=== PATIENT | male | born 1975 | race Caucasian/White ===

== ENCOUNTER → 2019-12-25 14:22 | Outpatient (BNVA) | payer OTHER, SELFPAY | PROVIDERS: PCP Nurse Practitioner Family; Referring Provider Nurse Practitioner Family; Visit Provider Nurse Practitioner | DX: Z76.89 Persons encountering health services in other specified circumstances (principal) ==

== ENCOUNTER → 2020-01-02 08:05 | Outpatient (BNVA) | payer OTHER, SELFPAY | PROVIDERS: PCP Nurse Practitioner Family; Referring Provider Nurse Practitioner Family; Visit Provider Nurse Practitioner Family | DX: G47.9 Sleep disorder, unspecified (principal); Z79.899 Other long term (current) drug therapy ==

== ENCOUNTER → 2020-02-18 19:25 | Outpatient (REF) | payer OTHER, SELFPAY | LOC: HO.SL 19:25 | PROVIDERS: PCP Nurse Practitioner Family; Visit Provider Nurse Practitioner Family | DX: G47.33 Obstructive sleep apnea (adult) (pediatric) (principal) | CPT/HCPCS: 95810 ==

== ENCOUNTER 2020-02-26 07:21 | Outpatient (REF) | payer OTHER, SELFPAY ==
[2020-02-26 12:29] LABS: Alanine Aminotransferase 38 U/L (0-40); Alkaline Phosphatase 93 U/L (39-117); Anion Gap 11 (12-20); Aspartate Amino Transferase 19 U/L (5-37); Bilirubin Total 0.4 mg/dL (0.0-1.0); Blood Urea Nitrogen 17 mg/dL (9-16); Carbon Dioxide 25 mmol/L (22-29); Chloride 107 mmol/L (96-108); Cholesterol 191 mg/dL; Estimated Glomerular Filt Rate > 60; Glucose Fasting 103 mg/dL (60-99); HDL Cholesterol 36 mg/dL; LDL Cholesterol Calculated 128 mg/dl; Potassium 4.4 mmol/l (3.3-5.1); Sodium 139 mmol/L (135-145); Total Protein 6.8 g/dL (6.5-8.0); Triglycerides 136 mg/dL
== END 2020-02-26 07:22 | disposition home or self-care (01) ==
LOC: HO.WFDLDS 07:21
PROVIDERS: PCP Nurse Practitioner Family; Visit Provider Nurse Practitioner Family
DX: Z00.00 Encounter for general adult medical examination without abnormal findings (principal)
CPT/HCPCS: 80053; 80061; 84443

== ENCOUNTER → 2020-03-12 08:20 | Outpatient (BNVA) | payer OTHER, SELFPAY | PROVIDERS: PCP Nurse Practitioner Family; Visit Provider Nurse Practitioner Family | DX: Z13.89 Encounter for screening for other disorder (principal) ==

== ENCOUNTER 2020-05-22 20:33 | Inpatient (IN) | payer OTHER, SELFPAY ==
--- NOTE | ~2020-05-22 | US_ITS ---
EXAMINATION: US ABDOMEN COMPLETE CLINICAL INFORMATION: The gallbladder wall thickening. Rule out cholecystitis/gallstones.. COMPARISON: CT scan of May 24, 2020 and May 22, 2020 TECHNIQUE: Real-time imaging of the abdominal viscera. FINDINGS: PANCREAS: Normal. No abnormal pancreatic mass or peripancreatic inflammatory change. ABDOMINAL AORTA: The proximal, mid, and distal segments are normal in caliber. INFERIOR VENA CAVA: Visualized portions are normal. LIVER: There is a coarsened echotexture present consistent with mild degree of hepatocellular disease. There is mild intrahepatic bile duct prominence. No focal hepatic mass is noted. GALLBLADDER: There is echogenic bile present with the gallbladder wall being thickened to 7 mm in diameter. Patient is tender to palpation overlying the gallbladder. No definite pericholecystic fluid collection is seen. COMMON BILE DUCT: Normal in caliber measuring 0.5 cm in diameter. RIGHT KIDNEY: Normal. No hydronephrosis. No renal calculi or focal parenchymal lesions. The kidney measures 10.2 cm in maximum dimension. LEFT KIDNEY: Normal. No hydronephrosis. No renal calculi or focal parenchymal lesions. The kidney measures 10.9 cm in maximum dimension. SPLEEN: Normal. The spleen measures 11 cm in maximum dimension. FREE FLUID: None. US/US abdomen complete IMPRESSION: Echogenic bile with diffuse prominent wall thickening to 7 mm in diameter with tenderness to palpation overlying the gallbladder. Findings are consistent with acute cholecystitis. No pericholecystic fluid collection.
--- NOTE | ~2020-05-22 | CT_ITS ---
EXAMINATION: CT ABDOMEN AND PELVIS WITH CONTRAST CLINICAL INFORMATION: Epigastric and right upper quadrant pain COMPARISON: None TECHNIQUE: Multidetector volumetric images were obtained from the superior aspect of the liver through the pubic symphysis following administration 85 mL of Omnipaque 350 intravenous contrast. Sagittal and coronal reformatted images were obtained on the technologist's workstation. Oral contrast: No This CT examination was performed using dose optimization techniques as appropriate, variously including the following: *Automated exposure control *Adjustment of mA and/or kV according to patient size (this includes techniques or standardized protocols for targeted exams where dose is matched to indication/reason for exam; i.e. extremities or head) *Use of iterative reconstruction technique DLP: 698 mGy-cm FINDINGS: LUNG BASES: The visualized lung bases are unremarkable. Dependent atelectasis/groundglass changes are present LIVER, GALLBLADDER, AND BILIARY TREE: The liver is normal in size, shape, and attenuation. No focal hepatic lesion or biliary ductal dilatation is present. The gallbladder is unremarkable with no evidence of radiopaque gallstones, gallbladder wall thickening, or obvious pericholecystic inflammatory changes. PANCREAS: Unremarkable. SPLEEN: Unremarkable. A tiny splenule is present. ADRENAL GLANDS: Unremarkable. KIDNEYS AND URETERS: The kidneys are normal in size, shape, and attenuation. No hydronephrosis, hydroureter, or calculi seen. No perinephric stranding. BLADDER: Unremarkable. GASTROINTESTINAL TRACT: A small hiatal hernia is present. The stomach is markedly distended and there is a transition to more small caliber duodenum at the level of the duodenal bulb. No inflammatory changes are seen. Diverticular changes are present in the colon without diverticulitis. The small and large bowel are otherwise unremarkable. The appendix is unremarkable. ABDOMINAL WALL: No significant hernia is appreciated. Tiny inguinal hernias are seen containing only fat LYMPH NODES: No retroperitoneal lymphadenopathy. VASCULAR: Unremarkable. PELVIC VISCERA: Unremarkable. OSSEOUS STRUCTURES: Degenerative changes present at L5-S1 with vacuum phenomena and mild grade 1 anterolisthesis. Bilateral pars intraarticularis defects are present at L5. CT/CT abdomen pelvis w con IMPRESSION: A definitive etiology for the patient's right upper quadrant pain has not been found. The stomach is quite distended with fluid with an abrupt transition at the level of the duodenum. The significance of this is uncertain. Gastritis or duodenal ulcer disease could be playing a role but no inflammatory changes are seen.
--- NOTE | ~2020-05-22 | XR_ITS ---
EXAMINATION: XR CHEST CLINICAL INFORMATION: Question of free air COMPARISON: None TECHNIQUE: Frontal view of the chest was obtained. FINDINGS: No significant abnormality is noted involving the heart, lungs, mediastinum, bony thorax or soft tissues. No free intraperitoneal air is seen beneath the hemidiaphragms. XR/XR chest 1V IMPRESSION: Unremarkable examination.
--- NOTE | ~2020-05-22 | CT_ITS ---
EXAMINATION: CT ABDOMEN AND PELVIS WITH CONTRAST CLINICAL INFORMATION: Abdominal pain, nausea and vomiting. Gastric distention. Evaluate small bowel. COMPARISON: Previous CT of the abdomen and pelvis 05/22/2020 TECHNIQUE: Multidetector volumetric images were obtained from the superior aspect of the liver through the pubic symphysis following administration 85 mL of Omnipaque 350 intravenous contrast. Sagittal and coronal reformatted images were obtained on the technologist's workstation. Oral contrast: Yes This CT examination was performed using dose optimization techniques as appropriate, variously including the following: *Automated exposure control *Adjustment of mA and/or kV according to patient size (this includes techniques or standardized protocols for targeted exams where dose is matched to indication/reason for exam; i.e. extremities or head) *Use of iterative reconstruction technique DLP: 522 mGy-cm FINDINGS: LUNG BASES: The visualized lung bases are unremarkable. LIVER, GALLBLADDER, AND BILIARY TREE: The liver is normal in size, shape, and attenuation. No focal hepatic lesion or biliary ductal dilatation is present. Gallbladder does not appear enlarged. The gallbladder wall is indistinct and there is question of a trace of pericholecystic fluid around the gallbladder. This is a new finding from previous exam. No gallstones are seen. There is no intra extrahepatic biliary duct dilatation. PANCREAS: Unremarkable. SPLEEN: Unremarkable. ADRENAL GLANDS: Unremarkable. KIDNEYS AND URETERS: The kidneys are normal in size, shape, and attenuation. No hydronephrosis, hydroureter, or calculi seen. No perinephric stranding. BLADDER: Unremarkable. GASTROINTESTINAL TRACT: There is mild diverticulosis of the colon. The small and large bowel are otherwise unremarkable. The appendix is unremarkable. The stomach no longer appears dilated and fluid-filled. There is mild wall thickening of the proximal stomach. This may be related to underdistention. ABDOMINAL WALL: No significant hernia is appreciated. LYMPH NODES: Normal. VASCULAR: Unremarkable. PELVIC VISCERA: The prostate gland does not appear enlarged. There is trace ascites in the pelvis. OSSEOUS STRUCTURES: There is spondylolisthesis spondylolysis and degenerative disc disease at L5-S1. CT/CT abdomen pelvis w con IMPRESSION: Normal-appearing small bowel. The stomach no longer appears distended. Diverticulosis of the colon. No evidence of diverticulitis. Indistinctness of the gallbladder wall and question small amount of pericholecystic fluid. This is a new finding from previous exam. No gallstones are seen. If there is clinical suspicion of gallbladder disease, abdominal ultrasound and possibly HIDA scan should be considered. Spondylosis, spondylolisthesis and degenerative disc disease at L5-S1.
[2020-05-22 20:41] VITALS: BP 137/87; BP 162/100; PULSE 68; PULSE 78; RESP 16; TEMP 36.6; O2SAT 98; BMI 29.5
[2020-05-22] MEDS: Prochlorperazine Edisylate 10 MG/2 ML VIAL IVPUSH (20:59)
[2020-05-22] MEDS: HYDROmorphone HCl 1 MG/ML SYRINGE IVPUSH ×2 (21:03→22:33)
[2020-05-22] MEDS: 0.9 % Sodium Chloride 1,000 ML 999 ML IVCONT (21:03)
--- NOTE | 2020-05-22 21:06 | ED_ITS ---
HPI - Abdominal Pain General Chief Complaint: Abdominal Pain Stated Complaint: UPPER ABDOMINAL PAIN Time Seen by Provider: 05/22/20 20:41 Source: patient and EMS Mode of arrival: EMS Limitations: no limitations History of Present Illness HPI narrative: Patient comes emergency room complaining severe epigastric pain. Patient states started 2 hours prior to arrival, states the pain went from 0-10 in couple of minutes. Patient is known to have GERD/Seaman's esophagus. Patient states that he has never had this pain before. Ambulance was called, patient was feeling position. EMS gave the patient 100 mg of fentanyl and Zofran with minimal relief. Patient states that he feels nauseous but has not vomited. Patient denies diarrhea. Patient denies any recent intake of NSAIDs, takes omeprazole twice a day MD elicited complaint: abdominal pain Related Data Previous Rx's Medication Instructions Recorded omeprazole 40 mg capsule,delayed 40 mg PO DAILY 30 Days #30 cap 12/25/19 release ezetimibe 10 mg tablet 10 mg PO DAILY #90 tab 04/29/20 Allergies Allergy/AdvReac Type Severity Reaction Status Date / Time shellfish derived Allergy Unknown Verified 05/22/20 21:09 Review of Systems Review of Systems Constitutional : No Weight loss, No Fever, No Chills, No Night Sweats, No Fatigue, No Malaise ENT/Mouth : No Hearing loss, No Ear Pain, No Nasal Congestion, No Sinus Pain, No Hoarseness, No sore throat, No Rhinorrhea, No Swallowing Difficulty Eyes: No Eye Pain, No Swelling, No Redness, No Foreign Body, No Discharge, No Vision Changes Cardiovascular : No Chest Pain, No SOB, No Dyspnea on Exertion, No Orthopnea, No Edema, No Palpitations Respiratory : No Cough, No Sputum, No Wheezing, No Smoke Exposure, No Dyspnea Gastrointestinal : Complaining of Nausea/dry heaving, No Vomiting, No Diarrhea, No Constipation, complaining of severe abdominal epigastric pain and right upper quadrant, No Hematochezia, No Melena Genitourinary : no irregular bleeding, No Dysuria, No Urinary Frequency, No Hematuria, No Urinary Incontinence, No Urgency, No Flank Pain, No Urinary Flow Changes, No Hesitancy Musculoskeletal : No joint pain, No Myalgias, No Joint Swelling Skin : No Skin Lesions, No rash Neuro : No Weakness, No Numbness, No Paresthesias, No Loss of Consciousness, No Dizziness, No Headache Psych : No Anxiety/Panic, No Depression, No SI/HI/AH/VH, No Social Issues, Heme/Lymph: No Bruising, No Bleeding,No Lymphadenopathy Endocrine : No Polyuria, No Polydipsia, No Temperature Intolerance Physical Exam Vital Signs: Vital Signs: Last Vital Signs Temp 97.9 F 05/22/20 20:41 Pulse 67 05/23/20 00:35 Resp 16 05/23/20 00:35 BP 136/87 05/23/20 00:35 Pulse Ox 98 05/22/20 20:41 Body Mass Index 29.5 Appearance: Alert. Oriented X3. In moderate distress, in pain, uncomfortable Eyes: Pupils equal, round and reactive to light. ENT: Pharynx normal. Neck: Normal inspection. Neck supple. No lymph nodes noted. No crepitus CVS: Normal heart rate and rhythm. Pulses normal. Normal S1 and S2 Respiratory: No respiratory distress. Breath sounds normal. No Wheezing. No rales Abdomen: Soft , tenderness to palpation over the epigastric area, negative Stack sign, No rigidity. No distention. Skin: Skin warm, mildly clammy, mildly pale Extremities: No lower extremity edema. Neuro: Oriented X 3. No motor deficit. No sensory deficit. Moving all extermities. No slurred speech. Course Course Course Narrative: I discussed the patient a CT scan with Dr. Artis, patient's condition is not surgical at this time. Recommendations are to p.o. challenge the patient, if able to tolerate fluids and solids, patient may be discharged home, and patient will be instructed to follow-up with his rn clinical quality, as he may need an upper endoscopy. 23:55 patient is being p.o. challenged, at this time, patient states that he has very mild discomfort in the abdomen with deep palpation, otherwise patient feels well 00:15 patient did not tolerate p.o. intake, nausea and pain restarted shortly after. I discussed the patient with Dr. Vergara, patient will be admitted to the hospitalist service, and in the morning patient will get a GI consult. I discussed the above mention with the patient and his , both agree with plan. MDM - Abdominal Pain Lab Data Result diagrams: 05/22/20 21:28 05/22/20 21:28 Labs: Lab Results 0305/22/20 05/22/20 Range/Units 21:28 21:28 21:28 WBC 9.7 (4.8-10.8) X10*3/uL RBC 4.86 (4.60-5.80) X10*6/uL Hgb 15.0 (14.0-18.0) g/dl Hct 43.6 (42-52) % MCV 89.7 (80-98) fL MCH 30.9 (27.0-33.0) pg MCHC 34.4 (31.0-36.0) g/dl RDW 12.1 (11.0-16.0) % Plt Count 194 (160-400) X10*3/uL MPV 10.7 (9.4-12.4) fL Immature Gran % (Auto) 0.4 (0.0-0.4) % Neut % (Auto) 69.1 (45-73) % Lymph % (Auto) 21.7 (20-40) % [place] % (Auto) 7.9 (2-11) % Eos % (Auto) 0.5 (0-4) % Baso % (Auto) 0.4 (0-2) % Lymph # (Auto) 2.1 (1.2-4.9) X10*3/uL [place] # (Auto) 0.8 (0.1-1.2) X10*3/uL Eos # (Auto) 0.1 (0.0-0.4) X10*3/uL Baso # (Auto) 0.0 (0.0-0.2) X10*3/uL Abs Immat Gran (auto) 0.04 H (0.00-0.03) X10*3/uL Absolute Neuts (auto) 6.7 (2.0-8.3) X10*3/uL Absolute Nucleated RBC 0.000 (0.0-0.012) X10*3/uL Nucleated RBC % (auto) 0.0 (0.0-0.2) /100WBC Sodium 139 (135-145) mmol/L Potassium 3.7 (3.3-5.1) mmol/L Chloride 105 (96-108) mmol/L Carbon Dioxide 24 (22-29) mmol/L Anion Gap 14 (12-20) BUN 19 H (9-16) mg/dL Creatinine 1.13 (0.5-1.4) mg/dL Estim Creat Clear Calc 94.8 Estimated GFR > 60 Random Glucose 123 H (60-115) mg/dL Lactic Acid 1.1 (0.5-2.0) mmol/L Calcium 9.1 (8.4-10.2) mg/dL Total Bilirubin 0.5 (0.0-1.0) mg/dL Direct Bilirubin 0.2 (0.0-0.5) mg/dL AST 20 (5-37) U/L ALT 32 (0-40) U/L Alkaline Phosphatase 88 (39-117) U/L Troponin I High Sens (<3.5-35.0) ng/L Total Protein 6.9 (6.5-8.0) g/dL Albumin 4.3 (3.5-5.0) g/dL Lipase 19 (8-78) U/L COVID-19 (ELA) (Negative) COVID-19 Clin Com 05/22/20 05/23/20 Range/Units 21:28 00:34 WBC (4.8-10.8) X10*3/uL RBC (4.60-5.80) X10*6/uL Hgb (14.0-18.0) g/dl Hct (42-52) % MCV (80-98) fL MCH (27.0-33.0) pg MCHC (31.0-36.0) g/dl RDW (11.0-16.0) % Plt Count (160-400) X10*3/uL MPV (9.4-12.4) fL Immature Gran % (Auto) (0.0-0.4) % Neut % (Auto) (45-73) % Lymph % (Auto) (20-40) % [place] % (Auto) (2-11) % Eos % (Auto) (0-4) % Baso % (Auto) (0-2) % Lymph # (Auto) (1.2-4.9) X10*3/uL [place] # (Auto) (0.1-1.2) X10*3/uL Eos # (Auto) (0.0-0.4) X10*3/uL Baso # (Auto) (0.0-0.2) X10*3/uL Abs Immat Gran (auto) (0.00-0.03) X10*3/uL Absolute Neuts (auto) (2.0-8.3) X10*3/uL Absolute Nucleated RBC (0.0-0.012) X10*3/uL Nucleated RBC % (auto) (0.0-0.2) /100WBC Sodium (135-145) mmol/L Potassium (3.3-5.1) mmol/L Chloride (96-108) mmol/L Carbon Dioxide (22-29) mmol/L Anion Gap (12-20) BUN (9-16) mg/dL Creatinine (0.5-1.4) mg/dL Estim Creat Clear Calc Estimated GFR Random Glucose (60-115) mg/dL Lactic Acid (0.5-2.0) mmol/L Calcium (8.4-10.2) mg/dL Total Bilirubin (0.0-1.0) mg/dL Direct Bilirubin (0.0-0.5) mg/dL AST (5-37) U/L ALT (0-40) U/L Alkaline Phosphatase (39-117) U/L Troponin I High Sens < 3.5 (<3.5-35.0) ng/L Total Protein (6.5-8.0) g/dL Albumin (3.5-5.0) g/dL Lipase (8-78) U/L COVID-19 (ELA) Negative (Negative) COVID-19 Clin Com See Note ECG Data Attestation: I personally reviewed and interpreted this ECG as follows: (Heart rate 64, QTC 416, no T-wave inversions, less than [address] segment elevation in V4 through V6, likely early repolarization. EKG 2., heart rate 50, QTC 408, no T-wave inversions, no changes from EKG 1. ) Discharge Plan Discharge Clinical Impression: Abdominal pain Qualifiers: Abdominal location: epigastric Qualified Code(s): R10.13 - Epigastric pain Patient Disposition: Admitted As Inpatient [facility] Past Medical History Medical History (Updated 05/23/20 @ 00:32 by Gracia Muro MD) Seaman esophagus GERD (gastroesophageal reflux disease) Hiatal hernia Hyperlipidemia Surgical History Hx of endoscopy Family History Family History Father Hx of congenital heart disease Mother History of cancer Social History Social History Alcohol intake: current Alcohol intake frequency: holidays/special occasions only Smoking Status: Never smoker Advance Directives: No
--- NOTE | 2020-05-22 21:31 | ECG_ITS ---
Test Reason : EPIGASTRIC PN Blood Pressure : / mmHG Vent. Rate : 050 BPM Atrial Rate : 050 BPM P-R Int : 150 ms QRS Dur : 100 ms QT Int : 448 ms P-R-T Axes : 055 050 056 degrees QTc Int : 408 ms Sinus bradycardia Otherwise normal ECG No previous ECGs available Referred By: Gracia Muro Electronically Signed By:TAMARA MODI MD
[2020-05-22 21:38] LABS: Basophils Percent Auto 0.4 % (0-2); Eosinophils Absolute Auto 0.1 X10*3/uL (0.0-0.4); Eosinophils Percent Auto 0.5 % (0-4); Hematocrit 43.6 % (42-52); Imm Gran Abs Auto 0.04 X10*3/uL (0.00-0.03); Imm Gran Pct Auto 0.4 % (0.0-0.4); Lymphocytes Absolute Auto 2.1 X10*3/uL (1.2-4.9); Lymphocytes Percent Auto 21.7 % (20-40); MANUAL DIFF FLAG NO; Mean Corpuscular HGB Conc 34.4 g/dl (31.0-36.0); Mean Corpuscular Hemoglobin 30.9 pg (27.0-33.0); Mean Corpuscular Volume 89.7 fL (80-98); Mean Platelet Volume 10.7 fL (9.4-12.4); Monocytes Absolute Auto 0.8 X10*3/uL (0.1-1.2); Monocytes Percent Auto 7.9 % (2-11); Neutrophils Absolute Auto 6.7 X10*3/uL (2.0-8.3); Neutrophils Percent Auto 69.1 % (45-73); Platelet Count 194 X10*3/uL (160-400); Red Blood Count 4.86 X10*6/uL (4.60-5.80); Red Cell Distribution Width 12.1 % (11.0-16.0); White Blood Count 9.7 X10*3/uL (4.8-10.8)
--- NOTE | 2020-05-22 22:10 | PC.NURSE ---
Report given to LEIF Juares. This RN preparing pt for transport.
[2020-05-22 22:12] VITALS: BP 127/67; PULSE 61; RESP 16
[2020-05-22 22:17] LABS: Lactic Acid 1.1 mmol/L (0.5-2.0)
[2020-05-22 22:20] LABS: Alanine Aminotransferase 32 U/L (0-40); Albumin Level 4.3 g/dL (3.5-5.0); Alkaline Phosphatase 88 U/L (39-117); Anion Gap 14 (12-20); Aspartate Amino Transferase 20 U/L (5-37); Bilirubin Direct 0.2 mg/dL (0.0-0.5); Bilirubin Total 0.5 mg/dL (0.0-1.0); Blood Urea Nitrogen 19 mg/dL (9-16); Calcium 9.1 mg/dL (8.4-10.2); Carbon Dioxide 24 mmol/L (22-29); Chloride 105 mmol/L (96-108); Creatinine Clr Calc Pharmacy 94.8; Estimated Glomerular Filt Rate > 60; Glucose Random 123 mg/dL (60-115); Lipase 19 U/L (8-78); Potassium 3.7 mmol/L (3.3-5.1); Sodium 139 mmol/L (135-145); Total Protein 6.9 g/dL (6.5-8.0)
[2020-05-22 22:22] LABS: Troponin-I High Sensitivity < 3.5 ng/L (<3.5-35.0)
[2020-05-22] MEDS: ondansetron HCL 4 MG/2 ML VIAL IVPUSH (22:34)
--- NOTE | 2020-05-22 22:47 | PC.NURSE ---
Pt medicated per MAY, off to CT on hospital bed.
--- NOTE | 2020-05-22 23:57 | PC.NURSE ---
MD at bedside discussing CT results and plan for PO challenge and DC home if able to tolerate. Pt ambulating to the bathroom with a steady gait, reporting minimal pain @ this time. Continue to monitor.
[2020-05-23] VITALS (12 sets, daily range): BP systolic 96–136; BP diastolic 50–87; PULSE 62–79; RESP 16–20; TEMP 36.1–37.3; O2SAT 95–100
--- NOTE | 2020-05-23 00:09 | PC.NURSE ---
Pt unable to tolerate PO, MD aware. Plan for consult with hospitalist.
--- NOTE | 2020-05-23 00:36 | PC.NURSE ---
Covid swab obtained and sent. Pt reporting nausea at this time. VSS. Awaiting hospitalist consult. Call moyer within reach, continue to monitor.
[2020-05-23 00:55] LABS: COVID-19 Test Negative (Negative); IDNOW Serial# 9DD0AD1C
--- NOTE | 2020-05-23 01:00 | PC.NURSE ---
Med Rec completed at bedside with family.
--- NOTE | 2020-05-23 01:19 | PM.IMHP ---
History of Present Illness Date of Service: 05/23/20 Chief Complaint: epigastric pain 44-year-old male with a past medical history of peptic ulcer disease, GERD, Seaman's esophagus, esophagitis, ALBERT presented to the hospital with a chief complaint of epigastric pain started today. Denies any nausea vomiting. Denies any diarrhea or blood in the stool. Has been passing gas. Denies any numbness tingling. Denies any fever chills cough. Denies any urinary symptoms. Review of all other systems is negative except mentioned above ER course: Per ER team patient noted to have epigastric tenderness. CT scan showed distended stomach with a transition bite; discussed with Dr. Viramontes is from general surgery who mentioned it is nonsurgical and recommended GI consult for possible EGD. Given pain medications admitted to the hospital for further management. [facility] Medical History Seaman esophagus GERD (gastroesophageal reflux disease) Hiatal hernia Hyperlipidemia Family History Father Hx of congenital heart disease Mother History of cancer Surgical History H/O shoulder surgery Hx of endoscopy Social History Household Members: Family Housing: House Alcohol intake: current Alcohol intake frequency: holidays/special occasions only Smoking Status: Never smoker service: No Current occupational status: employed Meds Allergies Allergy/AdvReac Type Severity Reaction Status Date / Time shellfish derived Allergy Unknown Verified 05/22/20 21:09 Active Medications: Current Medications Generic Name Dose Route Start Last Admin Trade Name Freq PRN Reason Stop Dose Admin Acetaminophen 650 mg 05/23/20 01:15 Acetaminophen 325 Mg Tablet PO Q6H PRN Pain, Mild (Pain Scale 1-3) Ezetimibe 10 mg 05/23/20 09:00 Ezetimibe 10 Mg Tablet PO DAILY JOSE Hydromorphone HCl 0.5 mg 05/23/20 01:15 Hydromorphone Hcl 0.5 Mg/0.5 Ml Syringe IVPUSH Q4H PRN Pain, Severe (Pain Scale 7-10) Dextrose/Sodium Chloride 1,000 mls @ 100 mls/hr 05/23/20 01:15 D51/2ns IVCONT .Q10H [facility] Pantoprazole Sodium 40 mg 05/23/20 06:30 Pantoprazole Sodium 40 Mg/10 Ml Vial IVPUSH DAILY@0630 [facility] Sodium Chloride 3 ml 05/23/20 08:00 0.9 % Sodium Chloride Flush 3 Ml Syringe IVFLUSH QSHIFT [facility] Physical Exam Vital Signs and Narrative: Vital Signs: Last Vital Signs Temp 97.9 F 05/22/20 20:41 Pulse 67 05/23/20 00:35 Resp 16 05/23/20 00:35 BP 136/87 05/23/20 00:35 Pulse Ox 98 05/22/20 20:41 Body Mass Index 29.5 Gen: Appears be in no acute distress HEENT: NCAT, Moist mucosa. Pulmonary: Vesicular breath sounds, fair air entry CVS: Normal S1-S2 Abdomen: BS+, Soft, tender in the epigastrium, no guarding no rigidity Extremities: Warm well perfused Neuro: Alert and awake. Results Labs CBC and Chem 7: 05/27/20 05:39 05/25/20 13:21 Labs: Laboratory Results - last 24 hr 05/22/20 05/22/20 05/22/20 21:28 21:28 21:28 MCV 89.7 MCH 30.9 MCHC 34.4 RDW 12.1 Plt Count 194 MPV 10.7 Immature Gran % (Auto) 0.4 Neut % (Auto) 69.1 Lymph % (Auto) 21.7 [place] % (Auto) 7.9 Eos % (Auto) 0.5 Baso % (Auto) 0.4 Lymph # (Auto) 2.1 [place] # (Auto) 0.8 Eos # (Auto) 0.1 Baso # (Auto) 0.0 Abs Immat Gran (auto) 0.04 H Absolute Neuts (auto) 6.7 Absolute Nucleated RBC 0.000 Nucleated RBC % (auto) 0.0 Anion Gap 14 Estim Creat Clear Calc 94.8 Estimated GFR > 60 Random Glucose 123 H Lactic Acid 1.1 Calcium 9.1 Total Bilirubin 0.5 Direct Bilirubin 0.2 AST 20 ALT 32 Alkaline Phosphatase 88 Troponin I High Sens Total Protein 6.9 Albumin 4.3 Lipase 19 COVID-19 (ELA) COVID-19 Clin Com 05/22/20 05/23/20 21:28 00:34 MCV MCH MCHC RDW Plt Count MPV Immature Gran % (Auto) Neut % (Auto) Lymph % (Auto) [place] % (Auto) Eos % (Auto) Baso % (Auto) Lymph # (Auto) [place] # (Auto) Eos # (Auto) Baso # (Auto) Abs Immat Gran (auto) Absolute Neuts (auto) Absolute Nucleated RBC Nucleated RBC % (auto) Anion Gap Estim Creat Clear Calc Estimated GFR Random Glucose Lactic Acid Calcium Total Bilirubin Direct Bilirubin AST ALT Alkaline Phosphatase Troponin I High Sens < 3.5 Total Protein Albumin Lipase COVID-19 (ELA) Negative COVID-19 Clin Com See Note Imaging Radiologist's Impressions: Impressions Abdomen/Pelvis CT 05/22/20 20:51 IMPRESSION: A definitive etiology for the patient's right upper quadrant pain has not been found. The stomach is quite distended with fluid with an abrupt transition at the level of the duodenum. The significance of this is uncertain. Gastritis or duodenal ulcer disease could be playing a role but no inflammatory changes are seen. Chest X-Ray 05/22/20 20:51 IMPRESSION: Unremarkable examination. Assessment and Plan (1) Abdominal pain: Qualifiers: Abdominal location: epigastric Qualified Code(s): R10.13 - Epigastric pain Status: Acute 44-year-old male with a past medical history of GERD, Seaman's esophagus, esophagitis, ALBERT presented to the hospital with a chief complaint of upper abdominal pain. Noted to have gastritis/stomach distention. Failed oral challenge in the ER. Admitted to the hospital for further management. Abdominal pain: CT scan showed gastritis versus peptic ulcer disease; also noted to have gastric distension with abrupt transition at the level of the duodenum. Discussed with general surgery Dr. Artis-who mentioned it is nonsurgical and recommended GI consult for possible EGD. GI consulted NPO IV fluids Pain control IV ppi DVT prophylaxis: SCD boots Code status: Full code
[2020-05-23] MEDS: Dextrose 5 % and 0.45 % NaCl 1,000 ML 100 ML IVCONT ×2 (01:49→15:47)
--- NOTE | 2020-05-23 02:21 | PC.NURSE ---
This RN calling [facility], [facility] unable to take report at this time.
--- NOTE | 2020-05-23 02:29 | PC.NURSE ---
Report given to [facility].
[2020-05-23] MEDS: Famotidine/PF 20 MG/2 ML VIAL IVPUSH (04:40)
[2020-05-23 06:17] LABS: MANUAL DIFF FLAG NO
[2020-05-23] MEDS: Pantoprazole Sodium 40 MG/10 ML VIAL IVPUSH (06:21)
[2020-05-23 06:48] LABS: Basophils Percent Auto 0.2 % (0-2); Eosinophils Percent Auto 0.1 % (0-4); Hematocrit 44.3 % (42-52); Imm Gran Abs Auto 0.04 X10*3/uL (0.00-0.03); Imm Gran Pct Auto 0.3 % (0.0-0.4); Lymphocytes Absolute Auto 1.7 X10*3/uL (1.2-4.9); Lymphocytes Percent Auto 14.4 % (20-40); Mean Corpuscular HGB Conc 33.9 g/dl (31.0-36.0); Mean Corpuscular Hemoglobin 30.9 pg (27.0-33.0); Mean Corpuscular Volume 91.3 fL (80-98); Mean Platelet Volume 11.1 fL (9.4-12.4); Monocytes Absolute Auto 1.3 X10*3/uL (0.1-1.2); Monocytes Percent Auto 11.1 % (2-11); Neutrophils Absolute Auto 8.8 X10*3/uL (2.0-8.3); Neutrophils Percent Auto 73.9 % (45-73); Platelet Count 204 X10*3/uL (160-400); Red Blood Count 4.85 X10*6/uL (4.60-5.80); Red Cell Distribution Width 12.1 % (11.0-16.0); White Blood Count 11.8 X10*3/uL (4.8-10.8)
[2020-05-23 07:20] LABS: Anion Gap 12 (12-20); Blood Urea Nitrogen 15 mg/dL (9-16); Calcium 9.1 mg/dL (8.4-10.2); Carbon Dioxide 29 mmol/L (22-29); Chloride 105 mmol/L (96-108); Creatinine Clr Calc Pharmacy 94.8; Estimated Glomerular Filt Rate > 60; Glucose Random 103 mg/dL (60-115); Potassium 4.9 mmol/L (3.3-5.1); Sodium 141 mmol/L (135-145)
--- NOTE | 2020-05-23 08:21 | P.CNGI_ITS ---
History of Present Illness Data of Consult Service Date: 05/23/20 Requesting physician: Isaak Thompson Primary Care [facility] Reason for consult: abdominal pain 44 YM presented to [facility] ED yesetrday with abdominal pain: Patient comes emergency room complaining severe epigastric pain. Patient states started 2 hours prior to arrival, states the pain went from 0-10 in couple of minutes. Patient is known to have GERD/Seaman's esophagus. Patient states that he has never had this pain before. Ambulance was called, patient was feeling position. EMS gave the patient 100 mg of fentanyl and Zofran with minimal relief. Patient states that he feels nauseous but has not vomited. Patient denies diarrhea. Patient denies any recent intake of NSAIDs, takes omeprazole twice a day Labs showed leucocytosis with left shift, normal LFTs and lipase. ABD CT SCAN SHOWED: A definitive etiology for the patient's right upper quadrant pain has not been found. The stomach is quite distended with fluid with an abrupt transition at the level of the duodenum. The significance of this is uncertain. Gastritis or duodenal ulcer disease could be playing a role but no inflammatory changes are seen. Pt complains of 10/10 epigastric pain associated which is tearing and ripping in character since yesterday and had to leave work. Pain was accompanied by nausea, dry heaves, abdominal bloating and distension. Patient denies fever or chills. Patient complains of anorexia with decreased appetite. He notes a decrease in frequency of bowel movements which she attributes to decreased oral intake. Patient denies black stool or obvious blood in the stool. He gives a history of intentional weight loss of 18 lb over the past few months. He gives a history of similar episodes of abdominal pain twice in the past. He noted abdominal pain at night and symptoms resolved after he took some Gas-X and he did not seek medical attention. Patient notes improvement in abdominal pain 2 5 x 10 this morning. Review of Systems Constitutional: Constitutional: Reports difficulty sleeping, Denies fever(s), Reports headache(s) and Reports weight loss (Intentional weight loss of 18 lb) Eyes: Eyes: Denies eye discharge, Reports dry eyes and Denies irritation ENT: Reports Normal hearing present, Denies dysphagia, Denies dizziness, Reports dry mouth and Reports headache(s) Cardiovascular: Cardiovascular: Reports chest pain, Denies leg edema, Reports dyspnea ( at rest), Reports dyspnea on exertion and Reports other ( palpitations) Respiratory: Respiratory: Denies cough, Reports dyspnea ( at rest) and Reports dyspnea on exertion Gastrointestinal: Gastrointestinal: Reports abdominal pain, Denies change in bowel habits, Denies dysphagia, Denies heartburn and Reports nausea Genitourinary: Genitourinary: Denies dysuria Musculoskeletal: Musculoskeletal: Denies back pain and Reports arthralgias ( arthritis) Integumentary/Breasts: Skin/Breast: Denies pruritus, Reports rash, Denies jaundice and Reports other (Alopecia, photosensitivity) Neurologic: Reports Normal hearing present, Denies Abnormal speech present, Denies dizziness, Reports headache(s) and Denies seizure-like activity Psychiatric: Psychiatric: Reports anxiety, Reports depression and Denies panic attacks Endocrine: Endocrine: Denies cold intolerance, Denies flushing and Denies heat intolerance PMFSH Past Medical History Medical History (Updated 05/23/20 @ 00:32 by Gracia Muro MD) Seaman esophagus GERD (gastroesophageal reflux disease) Hiatal hernia Hyperlipidemia Family History Family History Father Hx of congenital heart disease Mother History of cancer Surgical History Surgical History Hx of endoscopy Social History Social History Household Members: Family Housing: House Do you presently have visiting nurse or other home services: No Alcohol intake: current Alcohol intake frequency: holidays/special occasions only Smoking Status: Never smoker Smoked in Last 30 Days: No Use of substances other than those prescribed or required for medical reasons: No Currently Displaying Signs/Symptoms of Drug Intoxication Withdrawal: No Have you been hit, kicked, punched, or otherwise hurt by someone within the past year? If so, by whom?: No Do you feel safe in your current relationship?: Yes Is there a partner from a previous relationship who is making you feel unsafe now?: No Are you made to feel afraid or neglected: No Advance Directives: No Do you have thoughts of harming others: None Do you have a plan to hurt others: No Plan Recently lost weight without trying: No service: No Current occupational status: employed Meds Allergies Allergy/AdvReac Type Severity Reaction Status Date / Time shellfish derived Allergy Unknown Verified 05/22/20 21:09 Active Medications: Current Medications Generic Name Dose Route Start Last Admin Trade Name Freq PRN Reason Stop Dose Admin Acetaminophen 650 mg 05/23/20 01:15 Acetaminophen 325 Mg Tablet PO Q6H PRN Pain, Mild (Pain Scale 1-3) Ezetimibe 10 mg 05/23/20 09:00 Ezetimibe 10 Mg Tablet PO DAILY JOSE Hydromorphone HCl 0.5 mg 05/23/20 01:15 Hydromorphone Hcl 0.5 Mg/0.5 Ml Syringe IVPUSH Q4H PRN Pain, Severe (Pain Scale 7-10) Dextrose/Sodium Chloride 1,000 mls @ 100 mls/hr 05/23/20 01:15 05/23/20 01:49 D51/2ns IVCONT 100 mls/hr .Q10H JOSE Administration Ondansetron HCl 4 mg 05/23/20 04:02 Ondansetron Hcl 4 Mg/2 Ml Vial IVPUSH Q8H PRN Nausea and Vomiting Pantoprazole Sodium 40 mg 05/23/20 06:30 05/23/20 06:21 Pantoprazole Sodium 40 Mg/10 Ml Vial IVPUSH 40 mg DAILY@0630 JOSE Administration Sodium Chloride 3 ml 05/23/20 08:00 0.9 % Sodium Chloride Flush 3 Ml Syringe IVFLUSH QSHIFT [facility] Physical Exam Vital Signs: Vital Signs: Last Vital Signs Temp 98.7 F 05/23/20 06:54 Pulse 62 05/23/20 06:54 Resp 18 05/23/20 06:54 BP 96/52 L 05/23/20 06:54 Pulse Ox 95 05/23/20 06:54 Body Mass Index 29.5 Const: General: no acute distress and ill appearing Nutritional Appearance: average body habitus Orientation/consciousness: patient oriented x3 Limitations: no limitations HENMT: Head: Yes normal to inspection Ears: hearing grossly normal bilaterally Mouth: Normal oral and palatal mucosa present Eyes: Sclerae: sclerae normal Pupils: Equal, round and reactive pupils present Neck: Neck: Yes normal visual inspection Chest: Chest palpation & inspection: normal inspection of the chest Resp: Effort & Inspection: normal respiratory effort Auscultation: clear to auscultation bilaterally Cardio: Palpation: normal PMI Rate: regular rate Rhythm: regular rhythm Heart sounds: S1 normal heart sound present, S2 normal heart sound present and no murmurs GI: Palpation (GI): Soft to palpation, Tenderness to palpation present (GI) in the epigastrum and No hepatosplenomegaly present Auscultation: normal bowel sounds Rectal Exam - Male: Yes deferred Skin: General skin exam: no rashes or lesions noted Neuro: General: patient oriented x3, gait normal and moves all extremities Cranial nerves: Yes Equal, round and reactive pupils present and Yes Normal hear ing present Speech: No Abnormal speech present Psych: Appearance: grossly normal Mental Status: mental status grossly normal Results Labs CBC & Chem 7: 05/23/20 05:23 05/23/20 05:23 Labs: Short CBC 05/22/20 05/23/20 Range/Units 21:28 05:23 WBC 9.7 11.8 H (4.8-10.8) X10*3/uL Hgb 15.0 15.0 (14.0-18.0) g/dl Hct 43.6 44.3 (42-52) % Plt Count 194 204 (160-400) X10*3/uL BMP 05/22/20 05/23/20 21:28 05:23 Sodium 139 141 Potassium 3.7 4.9 D Chloride 105 105 Carbon Dioxide 24 29 BUN 19 H 15 Creatinine 1.13 1.13 Calcium 9.1 9.1 Liver Function 05/22/20 Range/Units 21:28 Total Bilirubin 0.5 (0.0-1.0) mg/dL Direct Bilirubin 0.2 (0.0-0.5) mg/dL AST 20 (5-37) U/L ALT 32 (0-40) U/L Alkaline Phosphatase 88 (39-117) U/L Albumin 4.3 (3.5-5.0) g/dL Assessment and Plan (1) Abdominal pain: Qualifiers: Abdominal location: epigastric Qualified Code(s): R10.13 - Epigastric pain Status: Acute (2) GERD with esophagitis: Status: Acute (3) 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 ED yesterday with the sudden onset of upper abdominal pain associated with nausea, dry heaves and decreased oral intake. Abdominal CT scan showed a distended stomach with fluid with an abrupt transition at the level of the duodenum felt to be due to Gastritis or duodenal ulcer disease. Patient admits to taking Aleve every few weeks for generalized aches and pains. RECOMMENDATIONS: 1. Proceed with upper endoscopy for further evaluation - schedule today at 13:30. Upper endoscopy procedure and potential complications including bleeding, perforation, drug reaction and aspiration were reviewed with the patient who agrees to having an upper endoscopy. 2. Continue IV PPI and pain medications for pain control.
[2020-05-23] MEDS: HYDROmorphone HCl 0.5 MG/0.5 ML SYRINGE IVPUSH ×3 (08:25→22:41)
[2020-05-23] MEDS: 0.9 % Sodium Chloride Flush 3 ML SYRINGE IVFLUSH ×2 (08:26→15:47)
[2020-05-23] MEDS: Ezetimibe 10 MG TABLET PO (08:26)
[2020-05-23] MEDS: ondansetron HCL 4 MG/2 ML VIAL IVPUSH ×2 (08:26→18:34)
--- NOTE | 2020-05-23 08:34 | MHC.CM.PN ---
CM met with Patient at bedside. Patient lives in a house with his /HCP and 2 children, ages 8 & 9 years of age. 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
[2020-05-23 09:02] LABS: Prothrombin Time 12.2 SEC (10.8-13.0)
--- NOTE | 2020-05-23 13:42 | P.CONAN_ITS ---
HPI - Anesthesia Eval Consult details Narrative: GERD [facility] Active Problems Active Problems: All Active Problems (Updated 05/23/20 @ 00:32 by Gracia Muro MD) Abdominal pain (Acute) GERD with esophagitis (Acute) Seaman's esophagus determined by biopsy (Acute) Sleep disorder, unspecified (Acute) Physical exam (Acute) Moderate obstructive sleep apnea (Acute) Allergies (Acute) Past Medical History Medical History Seaman esophagus GERD (gastroesophageal reflux disease) Hiatal hernia Hyperlipidemia Family History Family History Father Hx of congenital heart disease Mother History of cancer Surgical History Surgical History Hx of endoscopy Social History Social History Household Members: Family Housing: House Do you presently have visiting nurse or other home services: No Alcohol intake: current Alcohol intake frequency: holidays/special occasions only Smoking Status: Never smoker Smoked in Last 30 Days: No Use of substances other than those prescribed or required for medical reasons: No Currently Displaying Signs/Symptoms of Drug Intoxication Withdrawal: No Have you been hit, kicked, punched, or otherwise hurt by someone within the past year? If so, by whom?: No Do you feel safe in your current relationship?: Yes Is there a partner from a previous relationship who is making you feel unsafe now?: No Are you made to feel afraid or neglected: No Advance Directives: No Do you have thoughts of harming others: None Do you have a plan to hurt others: No Plan Recently lost weight without trying: No service: No Current occupational status: employed Meds Allergies Allergy/AdvReac Type Severity Reaction Status Date / Time shellfish derived Allergy Unknown Verified 05/22/20 21:09 Active Medications: Current Medications Generic Name Dose Route Start Last Admin Trade Name Freq PRN Reason Stop Dose Admin Acetaminophen 650 mg 05/23/20 01:15 Acetaminophen 325 Mg Tablet PO Q6H PRN Pain, Mild (Pain Scale 1-3) Ezetimibe 10 mg 05/23/20 09:00 05/23/20 08:26 Ezetimibe 10 Mg Tablet PO 10 mg DAILY JOSE Administration Hydromorphone HCl 0.5 mg 05/23/20 01:15 05/23/20 08:25 Hydromorphone Hcl 0.5 Mg/0.5 Ml Syringe IVPUSH 0.5 mg Q4H PRN Administration Pain, Severe (Pain Scale 7-10) Dextrose/Sodium Chloride 1,000 mls @ 100 mls/hr 05/23/20 01:15 05/23/20 01:49 D51/2ns IVCONT 100 mls/hr .Q10H JOSE Administration Ondansetron HCl 4 mg 05/23/20 04:02 05/23/20 08:26 Ondansetron Hcl 4 Mg/2 Ml Vial IVPUSH 4 mg Q8H PRN Administration Nausea and Vomiting Pantoprazole Sodium 40 mg 05/23/20 06:30 05/23/20 06:21 Pantoprazole Sodium 40 Mg/10 Ml Vial IVPUSH 40 mg DAILY@0630 JOSE Administration Sodium Chloride 3 ml 05/23/20 08:00 05/23/20 08:26 0.9 % Sodium Chloride Flush 3 Ml Syringe IVFLUSH 3 ml QSHIFT JOSE Administration Exam Exam Date and Time: May 23, 2020 1342 Height,Weight and Vital Signs: Height 5 ft 9 in Weight 90.718 kg Last Vital Signs Temp 99.2 F 05/23/20 12:51 Pulse 67 05/23/20 12:51 Resp 16 05/23/20 12:51 BP 108/73 05/23/20 12:51 Pulse Ox 96 05/23/20 12:51 Pertinent Lab Results Pertinent Lab Results: Laboratory Tests 05/22/20 05/22/20 05/22/20 21:28 21:28 21:28 WBC 9.7 RBC 4.86 Hgb 15.0 Hct 43.6 MCV 89.7 MCH 30.9 MCHC 34.4 RDW 12.1 Plt Count 194 MPV 10.7 Immature Gran % (Auto) 0.4 Neut % (Auto) 69.1 Lymph % (Auto) 21.7 [place] % (Auto) 7.9 Eos % (Auto) 0.5 Baso % (Auto) 0.4 Lymph # (Auto) 2.1 [place] # (Auto) 0.8 Eos # (Auto) 0.1 Baso # (Auto) 0.0 Abs Immat Gran (auto) 0.04 H Absolute Neuts (auto) 6.7 Absolute Nucleated RBC 0.000 Nucleated RBC % (auto) 0.0 PT INR Sodium 139 Potassium 3.7 Chloride 105 Carbon Dioxide 24 Anion Gap 14 BUN 19 H Creatinine 1.13 Estim Creat Clear Calc 94.8 Estimated GFR > 60 Random Glucose 123 H Lactic Acid 1.1 Calcium 9.1 Total Bilirubin 0.5 Direct Bilirubin 0.2 AST 20 ALT 32 Alkaline Phosphatase 88 Troponin I High Sens Total Protein 6.9 Albumin 4.3 Lipase 19 COVID-19 (ELA) COVID-19 Clin Com 05/22/20 05/23/20 05/23/20 21:28 00:34 05:23 WBC 11.8 H RBC 4.85 Hgb 15.0 Hct 44.3 MCV 91.3 MCH 30.9 MCHC 33.9 RDW 12.1 Plt Count 204 MPV 11.1 Immature Gran % (Auto) 0.3 Neut % (Auto) 73.9 H Lymph % (Auto) 14.4 L [place] % (Auto) 11.1 H Eos % (Auto) 0.1 Baso % (Auto) 0.2 Lymph # (Auto) 1.7 [place] # (Auto) 1.3 H Eos # (Auto) 0.0 Baso # (Auto) 0.0 Abs Immat Gran (auto) 0.04 H Absolute Neuts (auto) 8.8 H Absolute Nucleated RBC 0.000 Nucleated RBC % (auto) 0.0 PT INR Sodium Potassium Chloride Carbon Dioxide Anion Gap BUN Creatinine Estim Creat Clear Calc Estimated GFR Random Glucose Lactic Acid Calcium Total Bilirubin Direct Bilirubin AST ALT Alkaline Phosphatase Troponin I High Sens < 3.5 Total Protein Albumin Lipase COVID-19 (ELA) Negative COVID-19 Clin Com See Note 05/23/20 05/23/20 05:23 08:20 WBC RBC Hgb Hct MCV MCH MCHC RDW Plt Count MPV Immature Gran % (Auto) Neut % (Auto) Lymph % (Auto) [place] % (Auto) Eos % (Auto) Baso % (Auto) Lymph # (Auto) [place] # (Auto) Eos # (Auto) Baso # (Auto) Abs Immat Gran (auto) Absolute Neuts (auto) Absolute Nucleated RBC Nucleated RBC % (auto) PT 12.2 INR 1.0 Sodium 141 Potassium 4.9 D Chloride 105 Carbon Dioxide 29 Anion Gap 12 BUN 15 Creatinine 1.13 Estim Creat Clear Calc 94.8 Estimated GFR > 60 Random Glucose 103 Lactic Acid Calcium 9.1 Total Bilirubin Direct Bilirubin AST ALT Alkaline Phosphatase Troponin I High Sens Total Protein Albumin Lipase COVID-19 (ELA) COVID-19 Clin Com Airway Mallampati Class: II TM Dist: >3cm Neck ROM: Full Loose/Missing/Broken Teeth: No Heart: [id number] Lungs: cta b/l Assessment and Plan Assessment Anesthesia Assessment: Anesthesia Plan Discussed, PAT Visit and Chart Reviewed Final Anesthetic Review NPO: Yes ASA Class: II Final Preanesthetic Review: No Changes in Pt Med Stat, Meds/Allgs Chart Reviewed, Consent Obtained/Reviewed and Anes Risks/Benef Reviewed Patient Risk: Low Procedure Risk: Low Assessment/Block/Sedation in SS: Assess/Block/Sedation-SS Anesthetic Plan Anesthetic Plan: MAC: and Agree w/ Assess. and Plan Disposition: Standard PACU
--- NOTE | 2020-05-23 13:44 | W.PM.OPN ---
Operative Note Operative Note Date of Service: 05/23/20 Narrative: Pre-op diagnosis: Abdominal pain, nausea and vomiting, abnormal CT scan of stomach and duodenum Post-op diagnosis: other (Esophagitis, hiatal hernia, Seaman's, prominent gastric folds, gastritis) Procedure: FLEXIBLE TRANSORAL UPPER GASTROINTESTINAL ENDOSCOPY WITH BIOPSIES Consent: Indications for the procedure and potential complications of bleeding, perforation, reaction to medications and missed diagnosis were discussed with the patient and informed consent was obtained. Instrument: Olympus GIF H 190 mid size upper endoscope & Olympus PCF variable stiffness pediatric colonoscope Monitoring: Vital signs and clinical assessment, continuous EKG monitoring, Pulse oximetry, Carbon Dioxide monitoring and blood pressure monitoring were done throughout the procedure. Procedure: The patient was placed in the left lateral decubitis position and pre-procedure medications were administered and a bite block was placed. The endoscope was inserted into the mouth and advanced under direct vision to the third part of duodenum. A careful inspection was made as the upper endoscope was withdrawn including a retroflexed examination of the proximal stomach; Findings and interventions are described below. Findings: Larynx: Edema of arytenoid cartliages Esophagus: GE junction at 35 cms, hiatal hernia 35 to 40 cms. Focal esophagitis with exudate at GE junction. Three 1-2 cms tongues of Seaman's - biopsied Stomach: Prominent gastric folds in the fundus and body of the stomach nodular appearing gastric mucosa - biopsies were obtained. Mild diffuse gastric erythema. Biopsies were obtained. Grade 4 flap valve on retroflexed examination of the cardia. Duodenum: Normal bulb and descending duodenum. Pediatric colonoscope was advanced thorugh the duodenum to proximal jejunum. Random biopsies were obtained from 1st part duodenum and proximal jejunum. Intervention: Biopsies as noted above Impression and Post Procedure Diagnosis: Endoscopy Findings: LARYNX: Changes suggestive of LPRD ESOPHAGUS: GE junction at 35 cms, hiatal hernia 35 to 40 cms. Focal esophagitis with exudate at GE junction. Three 1-2 cms tongues of Seaman's - biopsied STOMACH: Gastritis with prominent gastric folds. DUODENUM: Normal duodenum and proximal jejunum -random biopsies were obtained Plan: Await pathology results. Schedule an MR enterography to evaluate remaining small bowel. Start a clear liquid diet and advance diet as tolerated Patient to schedule a FU appointment in the GI Clinic with Silviano Doll. Above findings were reviewed with the patient and his significant other. Surgeon: Evan Mercer MD Anesthesia: MAC (Rosanne Macias, SVP MONETIZATION) Estimated blood loss (mL): 0 Pathology: other (A. Gastric antrum, B. Gastric folds, C. Distal esophagus, D. Small bowel) Condition: stable Disposition: PACU
--- NOTE | 2020-05-23 13:44 | MHC.SHP ---
Pre-Procedural Eval Section A The patient is an INPATIENT: Yes Changes since office visit: Yes New Medical Problems, Yes Changes in Medication and Yes Patient answered all questions; No Cold of Flu in the past 2 weeks The History & Physical has been completed within 30 days and I have reviewed it.: Yes Section B Chief Complaint: ABDOMINAL PAIN Allergies: Allergies Allergy/AdvReac Type Severity Reaction Status Date / Time shellfish derived Allergy Unknown Verified 05/22/20 21:09 Plan I have reviewed the history and physical and performed a pertinent physical examination on my patient. No changes have occurred unless specified.
--- NOTE | 2020-05-23 14:12 | PM.EVENT ---
Event Note Date of Service: 05/23/20 Event Note: 44-year-old male came with nausea vomiting and abdominal pain that started yesterday evening CT abdomen shows gastric dilatation with abrupt transition point at duodenal, patient seen and examined at bedside denies any nausea or vomiting, reported abdominal pain improving on exam alert abdomen soft mild tenderness in epigastric area CVS rate and rhythm regular lungs clear admitted for nausea vomiting and abdominal pain secondary to gastric dilatation with abrupt transition at duodenal rule out obstruction versus mass patient seen by Gastroenterology plan for EGD today continue supportive management
[2020-05-23] MEDS: Acetaminophen 325 MG TABLET 650 MG PO (22:43)
[2020-05-24] MEDS: Dextrose 5 % and 0.45 % NaCl 1,000 ML 100 ML IVCONT ×3 (00:56→22:18)
[2020-05-24 03:28] VITALS: BP 105/58; PULSE 55; RESP 16; TEMP 36.8; O2SAT 96
[2020-05-24] MEDS: Pantoprazole Sodium 40 MG/10 ML VIAL IVPUSH (05:32)
[2020-05-24] MEDS: HYDROmorphone HCl 0.5 MG/0.5 ML SYRINGE IVPUSH ×2 (05:38→20:53)
[2020-05-24] MEDS: 0.9 % Sodium Chloride Flush 3 ML SYRINGE IVFLUSH (07:30)
[2020-05-24] MEDS: Acetaminophen 325 MG TABLET 650 MG PO ×2 (07:30→19:29)
[2020-05-24] MEDS: Ezetimibe 10 MG TABLET PO (07:31)
[2020-05-24 07:58] LABS: MANUAL DIFF FLAG NO
[2020-05-24 08:00] VITALS: BP 117/70; PULSE 76; RESP 20; TEMP 36.6; O2SAT 97
[2020-05-24 08:03] LABS: Basophils Percent Auto 0.3 % (0-2); Eosinophils Absolute Auto 0.1 X10*3/uL (0.0-0.4); Hematocrit 42.5 % (42-52); Hemoglobin 14.1 g/dl (14.0-18.0); Imm Gran Abs Auto 0.03 X10*3/uL (0.00-0.03); Imm Gran Pct Auto 0.3 % (0.0-0.4); Lymphocytes Absolute Auto 2.7 X10*3/uL (1.2-4.9); Lymphocytes Percent Auto 26.4 % (20-40); Mean Corpuscular HGB Conc 33.2 g/dl (31.0-36.0); Mean Corpuscular Hemoglobin 31.1 pg (27.0-33.0); Mean Corpuscular Volume 93.6 fL (80-98); Mean Platelet Volume 11.2 fL (9.4-12.4); Monocytes Absolute Auto 0.9 X10*3/uL (0.1-1.2); Monocytes Percent Auto 8.9 % (2-11); Neutrophils Absolute Auto 6.4 X10*3/uL (2.0-8.3); Neutrophils Percent Auto 63.1 % (45-73); Platelet Count 184 X10*3/uL (160-400); Red Blood Count 4.54 X10*6/uL (4.60-5.80); Red Cell Distribution Width 12.4 % (11.0-16.0); White Blood Count 10.1 X10*3/uL (4.8-10.8)
[2020-05-24 09:12] LABS: Anion Gap 11 (12-20); Blood Urea Nitrogen 8 mg/dL (9-16); Calcium 8.7 mg/dL (8.4-10.2); Chloride 108 mmol/L (96-108); Estimated Glomerular Filt Rate > 60; Glucose Random 90 mg/dL (60-115); Potassium 4.1 mmol/L (3.3-5.1); Sodium 142 mmol/L (135-145)
[2020-05-24 09:15] LABS: Carbon Dioxide 27 mmol/L (22-29)
--- NOTE | 2020-05-24 09:38 | HO.POSTANES ---
Post Anesthesia Evaluation Post Anesthesia Evaluation Vital Signs: Vital Signs Temp Pulse Resp BP Pulse Ox 05/24/20 08:00 97.8 F 76 20 117/70 97 05/24/20 03:28 98.3 F 55 16 105/58 L 96 05/23/20 23:47 98.7 F 79 18 115/70 96 Anesthesia: Monitored Mental Status: Awake Pain Control: Satisfactory Nausea/Vomiting: None Hydration: Adequate Anesthesia-Related Issues: No Anes. Related Issues
[2020-05-24 11:33] VITALS: BP 111/59; PULSE 65; RESP 20; TEMP 36.8; O2SAT 95
--- NOTE | 2020-05-24 11:44 | MHC.CM.PN ---
per multi dis rounds pt will be here over the weekend
[2020-05-24] MEDS: Butalb/Acetamin/Caff 50/325/40 TABLET 1 TAB PO (12:21)
--- NOTE | 2020-05-24 12:36 | HO.PM.IMPN ---
Subjective Subjective Date of Service: 05/24/20 Interval History: Patient seen and examined at bedside patient denies any nausea or vomiting patient reported some abdominal discomfort Constitutional Constitutional: Reports difficulty sleeping, Denies fever(s), Reports headache(s) and Reports weight loss (Intentional weight loss of 18 lb) Eyes Eyes: Denies eye discharge, Reports dry eyes and Denies irritation ENT Ears, Nose, Mouth, and Throat: Reports Normal hearing present, Denies dysphagia, Denies dizziness, Reports dry mouth and Reports headache(s) Cardiovascular Cardiovascular: Reports chest pain, Denies leg edema, Reports dyspnea ( at rest), Reports dyspnea on exertion and Reports other ( palpitations) Respiratory Respiratory: Denies cough, Reports dyspnea ( at rest) and Reports dyspnea on exertion Gastrointestinal Gastrointestinal: Reports abdominal pain, Denies change in bowel habits, Denies dysphagia, Denies heartburn and Reports nausea Genitourinary Genitourinary: Denies dysuria Musculoskeletal Musculoskeletal: Denies back pain and Reports arthralgias ( arthritis) Integumentary/Breasts Skin/Breast: Denies pruritus, Reports rash, Denies jaundice and Reports other (Alopecia, photosensitivity) Neurologic Neurologic: Reports Normal hearing present, Denies Abnormal speech present, Denies dizziness, Reports headache(s) and Denies seizure-like activity Psychiatric Psychiatric: Reports anxiety, Reports depression and Denies panic attacks Endocrine Endocrine: Denies cold intolerance, Denies flushing and Denies heat intolerance Physical Exam Vital Signs: Vital Signs: Last Vital Signs Temp 98.2 F 05/24/20 11:33 Pulse 65 05/24/20 11:33 Resp 20 05/24/20 11:33 BP 111/59 L 05/24/20 11:33 Pulse Ox 95 05/24/20 11:33 Body Mass Index 29.5 Const: General: no acute distress and ill appearing Nutritional Appearance: average body habitus Orientation/consciousness: patient oriented x3 Limitations: no limitations and No language barrier HENMT: Head: Yes normal to inspection Ears: hearing grossly normal bilaterally Mouth: Normal oral and palatal mucosa present Eyes: Sclerae: sclerae normal Pupils: Equal, round and reactive pupils present Neck: Neck: Yes normal visual inspection Chest: Chest palpation & inspection: normal inspection of the chest Resp: Effort & Inspection: normal respiratory effort Auscultation: clear to auscultation bilaterally Cardio: Palpation: normal PMI Rate: regular rate Rhythm: regular rhythm Heart sounds: S1 normal heart sound present, S2 normal heart sound present and no murmurs GI: Palpation (GI): Soft to palpation, Tenderness to palpation present (GI) in the epigastrum and No hepatosplenomegaly present Auscultation: normal bowel sounds Rectal Exam - Male: Yes deferred Skin: General skin exam: no rashes or lesions noted Neuro: General: patient oriented x3, gait normal and moves all extremities Cranial nerves: Yes Equal, round and reactive pupils present and Yes Normal hearing present Speech: No Abnormal speech present Psych: Appearance: grossly normal Mental Status: mental status grossly normal Objective Data Current Medications Generic Name Dose Route Start Last Admin Trade Name Freq PRN Reason Stop Dose Admin Acetaminophen 650 mg 05/23/20 01:15 05/24/20 07:30 Acetaminophen 325 Mg Tablet PO 650 mg Q6H PRN Administration Pain, Mild (Pain Scale 1-3) Acetaminophen 650 mg 05/23/20 13:41 Acetaminophen 325 Mg Tablet PO ONCE PRN Pain, Mild (Pain Scale 1-3) Ezetimibe 10 mg 05/23/20 09:00 05/24/20 07:31 Ezetimibe 10 Mg Tablet PO 10 mg DAILY JOSE Administration Hydromorphone HCl 0.5 mg 05/23/20 01:15 05/24/20 05:38 Hydromorphone Hcl 0.5 Mg/0.5 Ml Syringe IVPUSH 0.5 mg Q4H PRN Administration Pain, Severe (Pain Scale 7-10) Dextrose/Sodium Chloride 1,000 mls @ 100 mls/hr 05/23/20 01:15 05/24/20 12:23 D51/2ns IVCONT 100 mls/hr .Q10H JOSE Administration Ondansetron HCl 4 mg 05/23/20 04:02 05/23/20 18:34 Ondansetron Hcl 4 Mg/2 Ml Vial IVPUSH 4 mg Q8H PRN Administration Nausea and Vomiting Pantoprazole Sodium 40 mg 05/23/20 06:30 05/24/20 05:32 Pantoprazole Sodium 40 Mg/10 Ml Vial IVPUSH 40 mg DAILY@0630 JOSE Administration Sodium Chloride 3 ml 05/23/20 08:00 05/24/20 07:30 0.9 % Sodium Chloride Flush 3 Ml Syringe IVFLUSH 3 ml QSHI JOSE Administration Labs CBC & Chem 7: 05/24/20 Unknown 05/24/20 08:01 Assessment and Plan (1) Abdominal pain: Status: Acute Assessment and Plan: 44-year-old male with a past medical history of GERD, Seaman's esophagus, esophagitis, ALBERT presented to the hospital with a chief complaint of upper abdominal pain. Noted to have gastritis/stomach distention. Failed oral challenge in the ER. Admitted to the hospital for further management. Abdominal pain with nausea vomiting CT scan showed gastritis versus peptic ulcer disease; also noted to have gastric distension with abrupt transition at the level of the duodenum. status post EGD shows Seaman esophagus and gastritis plan for CT abdomen with p.o. and IV contrast today will start clear liquids after CT gastroenterology following continue PPI DVT prophylaxis: SCD boots
[2020-05-24] MEDS: Barium Sulfate Oral (Berry) 450 ML ORAL.SUSP 900 ML PO (13:48)
[2020-05-24 15:11] VITALS: BP 125/62; PULSE 67; RESP 19; TEMP 36.4; O2SAT 98
[2020-05-24 19:07] VITALS: BP 112/62; PULSE 73; RESP 19; TEMP 36.8; O2SAT 96
[2020-05-25] VITALS (8 sets, daily range): BP systolic 100–150; BP diastolic 61–77; PULSE 60–76; RESP 16–18; TEMP 36.3–37.1; O2SAT 93–99
[2020-05-25] MEDS: Butalb/Acetamin/Caff 50/325/40 TABLET 1 TAB PO (01:13)
[2020-05-25] MEDS: Pantoprazole Sodium 40 MG/10 ML VIAL IVPUSH (05:42)
[2020-05-25] MEDS: Dextrose 5 % and 0.45 % NaCl 1,000 ML 100 ML IVCONT ×2 (08:15→21:03)
[2020-05-25] MEDS: 0.9 % Sodium Chloride Flush 3 ML SYRINGE IVFLUSH ×3 (08:16→22:39)
[2020-05-25] MEDS: Acetaminophen 325 MG TABLET 650 MG PO ×2 (08:42→16:54)
[2020-05-25] MEDS: ondansetron HCL 4 MG/2 ML VIAL IVPUSH ×3 (08:48→23:56)
[2020-05-25 13:25] LABS: MANUAL DIFF FLAG NO
[2020-05-25 13:39] LABS: Basophils Percent Auto 0.3 % (0-2); Eosinophils Absolute Auto 0.2 X10*3/uL (0.0-0.4); Eosinophils Percent Auto 1.2 % (0-4); Hematocrit 44.1 % (42-52); Hemoglobin 15.1 g/dl (14.0-18.0); Imm Gran Abs Auto 0.05 X10*3/uL (0.00-0.03); Imm Gran Pct Auto 0.4 % (0.0-0.4); Lymphocytes Absolute Auto 2.4 X10*3/uL (1.2-4.9); Lymphocytes Percent Auto 19.2 % (20-40); Mean Corpuscular HGB Conc 34.2 g/dl (31.0-36.0); Mean Corpuscular Hemoglobin 31.5 pg (27.0-33.0); Mean Corpuscular Volume 91.9 fL (80-98); Mean Platelet Volume 10.6 fL (9.4-12.4); Monocytes Absolute Auto 1.2 X10*3/uL (0.1-1.2); Monocytes Percent Auto 9.5 % (2-11); Neutrophils Absolute Auto 8.5 X10*3/uL (2.0-8.3); Neutrophils Percent Auto 69.4 % (45-73); Platelet Count 195 X10*3/uL (160-400); Red Cell Distribution Width 12.1 % (11.0-16.0); White Blood Count 12.3 X10*3/uL (4.8-10.8)
[2020-05-25 13:54] LABS: Anion Gap 9 (12-20); Blood Urea Nitrogen 8 mg/dL (9-16); Calcium 8.9 mg/dL (8.4-10.2); Carbon Dioxide 29 mmol/L (22-29); Chloride 106 mmol/L (96-108); Estimated Glomerular Filt Rate > 60; Glucose Random 88 mg/dL (60-115); Sodium 140 mmol/L (135-145)
--- NOTE | 2020-05-25 14:12 | HO.PM.IMPN ---
Subjective Subjective Date of Service: 05/25/20 Interval History: Patient seen and examined at bedside patient denies any nausea or vomiting patient still reporting upper abdominal pain Constitutional Constitutional: Reports difficulty sleeping, Denies fever(s), Reports headache(s) and Reports weight loss (Intentional weight loss of 18 lb) Eyes Eyes: Denies eye discharge, Reports dry eyes and Denies irritation ENT Ears, Nose, Mouth, and Throat: Reports Normal hearing present, Denies dysphagia, Denies dizziness, Reports dry mouth and Reports headache(s) Cardiovascular Cardiovascular: Reports chest pain, Denies leg edema, Reports dyspnea ( at rest), Reports dyspnea on exertion and Reports other ( palpitations) Respiratory Respiratory: Denies cough, Reports dyspnea ( at rest) and Reports dyspnea on exertion Gastrointestinal Gastrointestinal: Reports abdominal pain, Denies change in bowel habits, Denies dysphagia, Denies heartburn and Reports nausea Genitourinary Genitourinary: Denies dysuria Musculoskeletal Musculoskeletal: Denies back pain and Reports arthralgias ( arthritis) Integumentary/Breasts Skin/Breast: Denies pruritus, Reports rash, Denies jaundice and Reports other (Alopecia, photosensitivity) Neurologic Neurologic: Reports Normal hearing present, Denies Abnormal speech present, Denies dizziness, Reports headache(s) and Denies seizure-like activity Psychiatric Psychiatric: Reports anxiety, Reports depression and Denies panic attacks Endocrine Endocrine: Denies cold intolerance, Denies flushing and Denies heat intolerance Physical Exam Vital Signs: Vital Signs: Last Vital Signs Temp 98.7 F 05/25/20 12:00 Pulse 70 05/25/20 12:00 Resp 18 05/25/20 12:00 BP 120/65 05/25/20 12:00 Pulse Ox 98 05/25/20 12:00 Body Mass Index 29.5 Const: General: no acute distress and ill appearing Nutritional Appearance: average body habitus Orientation/consciousness: patient oriented x3 Limitations: no limitations and No language barrier HENMT: Head: Yes normal to inspection Ears: hearing grossly normal bilaterally Mouth: Normal oral and palatal mucosa present Eyes: Sclerae: sclerae normal Pupils: Equal, round and reactive pupils present Neck: Neck: Yes normal visual inspection Chest: Chest palpation & inspection: normal inspection of the chest Resp: Effort & Inspection: normal respiratory effort Auscultation: clear to auscultation bilaterally Cardio: Palpation: normal PMI Rate: regular rate Rhythm: regular rhythm Heart sounds: S1 normal heart sound present, S2 normal heart sound present and no murmurs GI: Palpation (GI): Soft to palpation, Tenderness to palpation present (GI) in the epigastrum and No hepatosplenomegaly present Auscultation: normal bowel sounds Rectal Exam - Male: Yes deferred Skin: General skin exam: no rashes or lesions noted Neuro: General: patient oriented x3, gait normal and moves all extremities Cranial nerves: Yes Equal, round and reactive pupils present and Yes Normal hearing present Speech: No Abnormal speech present Psych: Appearance: grossly normal Mental Status: mental status grossly normal Objective Data Current Medications Generic Name Dose Route Start Last Admin Trade Name Freq PRN Reason Stop Dose Admin Acetaminophen 650 mg 05/23/20 01:15 05/25/20 08:42 Acetaminophen 325 Mg Tablet PO 650 mg Q6H PRN Administration Pain, Mild (Pain Scale 1-3) Acetaminophen 650 mg 05/23/20 13:41 Acetaminophen 325 Mg Tablet PO ONCE PRN Pain, Mild (Pain Scale 1-3) Ezetimibe 10 mg 05/23/20 09:00 05/25/20 08:09 Ezetimibe 10 Mg Tablet PO Not Given DAILY JOSE Hydromorphone HCl 0.5 mg 05/23/20 01:15 05/24/20 20:53 Hydromorphone Hcl 0.5 Mg/0.5 Ml Syringe IVPUSH 0.5 mg Q4H PRN Administration Pain, Severe (Pain Scale 7-10) Dextrose/Sodium Chloride 1,000 mls @ 100 mls/hr 05/23/20 01:15 05/25/20 08:15 D51/2ns IVCONT 100 mls/hr .Q10H JOSE Administration Ondansetron HCl 4 mg 05/23/20 04:02 05/25/20 08:48 Ondansetron Hcl 4 Mg/2 Ml Vial IVPUSH 4 mg Q8H PRN Administration Nausea and Vomiting Pantoprazole Sodium 40 mg 05/23/20 06:30 05/25/20 05:42 Pantoprazole Sodium 40 Mg/10 Ml Vial IVPUSH 40 mg DAILY@0630 JOSE Administration Sodium Chloride 3 ml 05/23/20 08:00 05/25/20 08:16 0.9 % Sodium Chloride Flush 3 Ml Syringe IVFLUSH 3 ml QSHIFT JOSE Administration Labs CBC & Chem 7: 05/25/20 13:21 05/25/20 13:21 Assessment and Plan (1) Abdominal pain: Status: Acute Assessment and Plan: 44-year-old male with a past medical history of GERD, Seaman's esophagus, esophagitis, ALBERT presented to the hospital with a chief complaint of upper abdominal pain. Noted to have gastritis/stomach distention. Failed oral challenge in the ER. Admitted to the hospital for further management. Abdominal pain with nausea vomiting likely cholecystitis initial CT scan showed gastritis versus peptic ulcer disease; also noted to have gastric distension with abrupt transition at the level of the duodenum. status post EGD shows Seaman esophagus and gastritis repeat CT abdomen shows gallbladder wall thickening ultrasound abdomen done today shows acute cholecystitis general surgery consulted plan for cholecystectomy tomorrow NPO from midnight will start on IV Zosyn continue supportive management DVT prophylaxis: SCD boots
--- NOTE | 2020-05-25 15:33 | P.CONGS_ITS ---
History of Present Illness Consult details Consult date: 05/25/20 Requesting physician: Isaak Thompson Narrative: 44-year-old male patient presenting with complaints of abdominal pain in the epigastrium and right upper quadrant. Patient initially had substernal pain as well and felt he was having a heart attack. The pain began on Wednesday05/22/2020 a subsequently presented to the emergency department. He has a history of epigastric abdominal pain and gas for many years. He also has a history of Seaman's esophagus and hiatal hernia and has been treated with omeprazole for 12 years. The pain was made worse after eating a bagel with cream cheese. He was subsequently admitted to the hospitalist service. He underwent an upper endoscopy which did reveal Seaman's esophagus. A CT of the abdomen and pelvis revealed a thickened gallbladder with pericholecystic fluid. No gallstones were noted. Subsequent ultrasound confirmed thickened gallbladder wall with evidence of tenderness over the gallbladder suggestive of acute cholecystitis. Surgical consultation is requested for management of acute cholecystitis. Review of Systems Constitutional: Constitutional: Denies chills, Denies night sweats, Denies weakness and Reports weight loss Cardiovascular: Cardiovascular: Reports chest pain, Reports Epigastric Pain, Denies irregular heart rhythm and Reports dyspnea Respiratory: Respiratory: Denies excessive phlegm production, Reports pain on inspiration, Reports pain with cough and Reports dyspnea Gastrointestinal: Gastrointestinal: Reports abdominal pain (Epigastrium and right upper quadrant as noted in HPI), Denies constipation, Reports dyspepsia, Reports heartburn and Denies diarrhea Genitourinary: Genitourinary: Reports no additional male genitourinary complaints Musculoskeletal: Musculoskeletal: Reports no additional musculoskeletal complaints Neurologic: Reports system reviewed and no additional complaints, except as documented and Denies weakness Psychiatric: Psychiatric: Reports no additional psychiatric complaints Hematologic/Lymphatic: Hematologic/Lymphatic: Denies lymphadenopathy PMFSH Past Medical History Medical History Seaman esophagus GERD (gastroesophageal reflux disease) Hiatal hernia Hyperlipidemia Family History Family History Father Hx of congenital heart disease Mother History of cancer Surgical History Surgical History H/O shoulder surgery Hx of endoscopy Social History Social History Household Members: Family Housing: House Do you presently have visiting nurse or other home services: No Alcohol intake: current Alcohol intake frequency: holidays/special occasions only Smoking Status: Never smoker Smoked in Last 30 Days: No Use of substances other than those prescribed or required for medical reasons: No Currently Displaying Signs/Symptoms of Drug Intoxication Withdrawal: No Have you been hit, kicked, punched, or otherwise hurt by someone within the past year? If so, by whom?: No Do you feel safe in your current relationship?: Yes Is there a partner from a previous relationship who is making you feel unsafe now?: No Are you made to feel afraid or neglected: No Advance Directives: No Do you have thoughts of harming others: None Do you have a plan to hurt others: No Plan Recently lost weight without trying: No service: No Current occupational status: employed Meds Allergies Allergy/AdvReac Type Severity Reaction Status Date / Time shellfish derived Allergy Unknown Verified 05/22/20 21:09 Active Medications: Current Medications Generic Name Dose Route Start Last Admin Trade Name Freq PRN Reason Stop Dose Admin Acetaminophen 650 mg 05/23/20 01:15 05/25/20 08:42 Acetaminophen 325 Mg Tablet PO 650 mg Q6H PRN Administration Pain, Mild (Pain Scale 1-3) Acetaminophen 650 mg 05/23/20 13:41 Acetaminophen 325 Mg Tablet PO ONCE PRN Pain, Mild (Pain Scale 1-3) Ezetimibe 10 mg 05/23/20 09:00 05/25/20 08:09 Ezetimibe 10 Mg Tablet PO Not Given DAILY JOSE Hydromorphone HCl 0.5 mg 05/23/20 01:15 05/24/20 20:53 Hydromorphone Hcl 0.5 Mg/0.5 Ml Syringe IVPUSH 0.5 mg Q4H PRN Administration Pain, Severe (Pain Scale 7-10) Dextrose/Sodium Chloride 1,000 mls @ 100 mls/hr 05/23/20 01:15 05/25/20 08:15 D51/2ns IVCONT 100 mls/hr .Q10H JOSE Administration Piperacillin Sod/Tazobactam 50 mls @ 100 mls/hr 05/25/20 15:30 Sod 3.375 gm/ Sodium Chloride IV Q6H JOSE Ondansetron HCl 4 mg 05/23/20 04:02 05/25/20 08:48 Ondansetron Hcl 4 Mg/2 Ml Vial IVPUSH 4 mg Q8H PRN Administration Nausea and Vomiting Pantoprazole Sodium 40 mg 05/23/20 06:30 05/25/20 05:42 Pantoprazole Sodium 40 Mg/10 Ml Vial IVPUSH 40 mg DAILY@0630 [facility] Administration Sodium Chloride 3 ml 05/23/20 08:00 05/25/20 08:16 0.9 % Sodium Chloride Flush 3 Ml Syringe IVFLUSH 3 ml QSHIFT JOSE Administration Physical Exam Vital Signs: Vital Signs: Last Vital Signs Temp 98.7 F 05/25/20 12:00 Pulse 70 05/25/20 12:00 Resp 18 05/25/20 12:00 BP 120/65 05/25/20 12:00 Pulse Ox 98 05/25/20 12:00 Body Mass Index 29.5 Const: General: cooperative, no acute distress, alert and awake; No comfortable Nutritional Appearance: average body habitus and well nourished Orientation/consciousness: patient oriented x3 Limitations: no limitations Eyes: Sclerae: sclerae normal (No scleral icterus) EOM: EOMs intact bilaterally Neck: Neck: Yes normal visual inspection and Yes full ROM Resp: Effort & Inspection: normal respiratory effort, not labored, no stridor and not tachypneic Cardio: Jugular venous distension: no JVD GI: Inspection: Yes normal to inspection Palpation (GI): Soft to palpation and Tenderness to palpation present (GI) in the epigastrum, in the RUQ and Stack's sign positive Percussion: Yes normal to percussion Skin: General skin exam: no rashes or lesions noted Neuro: General: patient oriented x3 Extrem: General: Yes no clubbing, cyanosis or edema Results Labs Result diagrams: 05/25/20 13:21 05/25/20 13:21 Labs: Abnormal lab results 05/25/20 05/25/20 Range/Units 13:21 13:21 WBC 12.3 H (4.8-10.8) X10*3/uL Lymph % (Auto) 19.2 L (20-40) % Abs Immat Gran (auto) 0.05 H (0.00-0.03) X10*3/uL Absolute Neuts (auto) 8.5 H (2.0-8.3) X10*3/uL Anion Gap 9 L (12-20) BUN 8 L (9-16) mg/dL Short CBC 05/25/20 Range/Units 13:21 WBC 12.3 H (4.8-10.8) X10*3/uL Hgb 15.1 (14.0-18.0) g/dl Hct 44.1 (42-52) % Plt Count 195 (160-400) X10*3/uL BMP 05/25/20 13:21 Sodium 140 Potassium 4.0 Chloride 106 Carbon Dioxide 29 BUN 8 L Creatinine 1.02 Calcium 8.9 All other labs normal. Assessment and Plan (1) Cholecystitis, acute with cholelithiasis: Status: Acute 44-year-old male patient presenting with complaints of abdominal pain in the epigastrium and right upper quadrant since Wednesday. Patient has a long history of intermittent abdominal pain, excessive gas and heartburn. He has a known history of a Seaman's esophagus. He was found to have a thickened gallbladder wall with pericholecystic fluid and echogenic bile. He also has a sonographic Stack sign. On examination currently the patient is tender in the right upper quadrant with a positive Stack sign. Findings are suggestive of acute cholecystitis due to cholelithiasis. We discussed possible management including IV antibiotics and laparoscopic or possible open cholecystectomy. After discussion of the procedure, risks, and alternatives, he consents to the laparoscopic or possible open cholecystectomy. He will be added onto the operative schedule for tomorrow morning.
[2020-05-25] MEDS: Piperacillin Sodium/Tazobactam 3.375 GM in 0.9 % Sodium Chloride 50 ML IV ×2 (16:41→22:39)
[2020-05-25] MEDS: HYDROmorphone HCl 0.5 MG/0.5 ML SYRINGE IVPUSH (21:02)
[2020-05-26] VITALS (21 sets, daily range): BP systolic 101–155; BP diastolic 54–119; PULSE 60–93; RESP 12–21; TEMP 36.2–36.9; O2SAT 92–99
[2020-05-26] MEDS: Piperacillin Sodium/Tazobactam 3.375 GM in 0.9 % Sodium Chloride 50 ML IV ×3 (04:07→21:46)
[2020-05-26] MEDS: HYDROmorphone HCl 0.5 MG/0.5 ML SYRINGE IVPUSH ×4 (04:58→21:46)
[2020-05-26] MEDS: Pantoprazole Sodium 40 MG/10 ML VIAL IVPUSH (06:08)
[2020-05-26] MEDS: 0.9 % Sodium Chloride Flush 3 ML SYRINGE IVFLUSH ×2 (07:45→15:33)
--- NOTE | 2020-05-26 08:05 | MHC.SHP ---
Pre-Procedural Eval Section A The patient is an INPATIENT: Yes Changes since office visit: Yes Patient answered all questions; No Cold of Flu in the past 2 weeks, No New Medical Problems and No Changes in Medication The History & Physical has been completed within 30 days and I have reviewed it.: Yes Section B Chief Complaint: ABDOMINAL PAIN Allergies: Allergies Allergy/AdvReac Type Severity Reaction Status Date / Time shellfish derived Allergy Unknown Verified 05/22/20 21:09 Plan Diagnosis/Plan: Unchanged I have reviewed the history and physical and performed a pertinent physical examination on my patient. No changes have occurred unless specified.
--- NOTE | 2020-05-26 10:27 | P.CONAN_ITS ---
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 (Acute) Sleep disorder, unspecified (Acute) Physical exam (Acute) Moderate obstructive sleep apnea (Acute) Allergies (Acute) Past Medical History Medical History Seaman esophagus GERD (gastroesophageal reflux disease) Hiatal hernia Hyperlipidemia Family History Family History Father Hx of congenital heart disease Mother History of cancer Surgical History Surgical History H/O shoulder surgery Hx of endoscopy Social History Social History Household Members: Family Housing: House Do you presently have visiting nurse or other home services: No Alcohol intake: current Alcohol intake frequency: holidays/special occasions only Smoking Status: Never smoker Smoked in Last 30 Days: No Use of substances other than those prescribed or required for medical reasons: No Currently Displaying Signs/Symptoms of Drug Intoxication Withdrawal: No Have you been hit, kicked, punched, or otherwise hurt by someone within the past year? If so, by whom?: No Do you feel safe in your current relationship?: Yes Is there a partner from a previous relationship who is making you feel unsafe now?: No Are you made to feel afraid or neglected: No Advance Directives: No Do you have thoughts of harming others: None Do you have a plan to hurt others: No Plan Recently lost weight without trying: No service: No Current occupational status: employed Meds Allergies Allergy/AdvReac Type Severity Reaction Status Date / Time shellfish derived Allergy Unknown Verified 05/22/20 21:09 Active Medications: Current Medications Generic Name Dose Route Start Last Admin Trade Name Freq PRN Reason Stop Dose Admin Acetaminophen 650 mg 05/23/20 01:15 05/25/20 16:54 Acetaminophen 325 Mg Tablet PO 650 mg Q6H PRN Administration Pain, Mild (Pain Scale 1-3) Acetaminophen 650 mg 05/23/20 13:41 Acetaminophen 325 Mg Tablet PO ONCE PRN Pain, Mild (Pain Scale 1-3) Ezetimibe 10 mg 05/23/20 09:00 05/25/20 08:09 Ezetimibe 10 Mg Tablet PO Not Given DAILY JOSE Hydromorphone HCl 0.5 mg 05/23/20 01:15 05/26/20 04:58 Hydromorphone Hcl 0.5 Mg/0.5 Ml Syringe IVPUSH 0.5 mg Q4H PRN Administration Pain, Severe (Pain Scale 7-10) Piperacillin Sod/Tazobactam 50 mls @ 100 mls/hr 05/25/20 16:00 05/26/20 05:15 Sod 3.375 gm/ Sodium Chloride IV Infused Q6H JOSE Infusion Cefotetan Disodium 2 gm/ 50 mls @ 100 mls/hr 05/26/20 08:00 Sodium Chloride IV 05/26/20 23:00 PREOP JOSE Ondansetron HCl 4 mg 05/23/20 04:02 05/25/20 23:56 Ondansetron Hcl 4 Mg/2 Ml Vial IVPUSH 4 mg Q8H PRN Administration Nausea and Vomiting Sodium Chloride 3 ml 05/23/20 08:00 05/26/20 07:45 0.9 % Sodium Chloride Flush 3 Ml Syringe IVFLUSH 3 ml QSHIFT JOSE Administration Exam Exam Date and Time: May 26, 2020 1027 Height,Weight and Vital Signs: Height 5 ft 9 in Weight 90.718 kg Last Vital Signs Temp 97.1 F 05/26/20 07:50 Pulse 71 05/26/20 07:50 Resp 20 05/26/20 07:50 BP 123/82 05/26/20 07:50 Pulse Ox 97 05/26/20 07:50 Pertinent Lab Results Pertinent Lab Results: Laboratory Tests 05/22/20 05/22/20 05/22/20 21:28 21:28 21:28 WBC 9.7 RBC 4.86 Hgb 15.0 Hct 43.6 MCV 89.7 MCH 30.9 MCHC 34.4 RDW 12.1 Plt Count 194 MPV 10.7 Immature Gran % (Auto) 0.4 Neut % (Auto) 69.1 Lymph % (Auto) 21.7 [place] % (Auto) 7.9 Eos % (Auto) 0.5 Baso % (Auto) 0.4 Lymph # (Auto) 2.1 [place] # (Auto) 0.8 Eos # (Auto) 0.1 Baso # (Auto) 0.0 Abs Immat Gran (auto) 0.04 H Absolute Neuts (auto) 6.7 Absolute Nucleated RBC 0.000 Nucleated RBC % (auto) 0.0 PT INR Sodium 139 Potassium 3.7 Chloride 105 Carbon Dioxide 24 Anion Gap 14 BUN 19 H Creatinine 1.13 Estim Creat Clear Calc 94.8 Estimated GFR > 60 Random Glucose 123 H Lactic Acid 1.1 Calcium 9.1 Total Bilirubin 0.5 Direct Bilirubin 0.2 AST 20 ALT 32 Alkaline Phosphatase 88 Troponin I High Sens Total Protein 6.9 Albumin 4.3 Lipase 19 COVID-19 (ELA) COVID-19 Clin Com 05/22/20 05/23/20 05/23/20 21:28 00:34 05:23 WBC 11.8 H RBC 4.85 Hgb 15.0 Hct 44.3 MCV 91.3 MCH 30.9 MCHC 33.9 RDW 12.1 Plt Count 204 MPV 11.1 Immature Gran % (Auto) 0.3 Neut % (Auto) 73.9 H Lymph % (Auto) 14.4 L [place] % (Auto) 11.1 H Eos % (Auto) 0.1 Baso % (Auto) 0.2 Lymph # (Auto) 1.7 [place] # (Auto) 1.3 H Eos # (Auto) 0.0 Baso # (Auto) 0.0 Abs Immat Gran (auto) 0.04 H Absolute Neuts (auto) 8.8 H Absolute Nucleated RBC 0.000 Nucleated RBC % (auto) 0.0 PT INR Sodium Potassium Chloride Carbon Dioxide Anion Gap BUN Creatinine Estim Creat Clear Calc Estimated GFR Random Glucose Lactic Acid Calcium Total Bilirubin Direct Bilirubin AST ALT Alkaline Phosphatase Troponin I High Sens < 3.5 Total Protein Albumin Lipase COVID-19 (ELA) Negative COVID-19 Clin Com See Note 05/23/20 05/23/20 05/24/20 05:23 08:20 08:01 WBC RBC Hgb Hct MCV MCH MCHC RDW Plt Count MPV Immature Gran % (Auto) Neut % (Auto) Lymph % (Auto) [place] % (Auto) Eos % (Auto) Baso % (Auto) Lymph # (Auto) [place] # (Auto) Eos # (Auto) Baso # (Auto) Abs Immat Gran (auto) Absolute Neuts (auto) Absolute Nucleated RBC Nucleated RBC % (auto) PT 12.2 INR 1.0 Sodium 141 142 Potassium 4.9 D 4.1 Chloride 105 108 Carbon Dioxide 29 27 Anion Gap 12 11 L BUN 15 8 L Creatinine 1.13 1.02 Estim Creat Clear Calc 94.8 105.0 Estimated GFR > 60 > 60 Random Glucose 103 90 Lactic Acid Calcium 9.1 8.7 Total Bilirubin Direct Bilirubin AST ALT Alkaline Phosphatase Troponin I High Sens Total Protein Albumin Lipase COVID-19 (ELA) COVID-19 Clin Com 05/24/20 05/25/20 05/25/20 Unknown 13:21 13:21 WBC 10.1 12.3 H RBC 4.54 L 4.80 Hgb 14.1 15.1 Hct 42.5 44.1 MCV 93.6 91.9 MCH 31.1 31.5 MCHC 33.2 34.2 RDW 12.4 12.1 Plt Count 184 195 MPV 11.2 10.6 Immature Gran % (Auto) 0.3 0.4 Neut % (Auto) 63.1 69.4 Lymph % (Auto) 26.4 19.2 L [place] % (Auto) 8.9 9.5 Eos % (Auto) 1.0 1.2 Baso % (Auto) 0.3 0.3 Lymph # (Auto) 2.7 2.4 [place] # (Auto) 0.9 1.2 Eos # (Auto) 0.1 0.2 Baso # (Auto) 0.0 0.0 Abs Immat Gran (auto) 0.03 0.05 H Absolute Neuts (auto) 6.4 8.5 H Absolute Nucleated RBC 0.000 0.000 Nucleated RBC % (auto) 0.0 0.0 PT INR Sodium 140 Potassium 4.0 Chloride 106 Carbon Dioxide 29 Anion Gap 9 L BUN 8 L Creatinine 1.02 Estim Creat Clear Calc 105.0 Estimated GFR > 60 Random Glucose 88 Lactic Acid Calcium 8.9 Total Bilirubin Direct Bilirubin AST ALT Alkaline Phosphatase Troponin I High Sens Total Protein Albumin Lipase COVID-19 (ELA) COVID-19 Clin Com Airway Mallampati Class: III TM Dist: >3cm Neck ROM: Full Heart: RRR Lungs: CTA
--- NOTE | 2020-05-26 11:41 | W.PM.OPN ---
Operative Note Operative Note Date of Service: 05/26/20 Narrative: Preoperative diagnosis: Acute cholecystitis, cholelithiasis Postoperative diagnosis: Same Procedure: Laparoscopic cholecystectomy Surgeon: Aguila Lal MD Guitar Repair Technician: None Anesthesia: General endotracheal Indications for procedure: 44-year-old male patient presenting with complaints of abdominal pain in epigastric abdominal pain found to have a thickened gallbladder with tiny gallstones within the gallbladder. Patient presents now for laparoscopic cholecystectomy for acute cholecystitis. Operative findings: Patient was found to have a markedly thickened and inflamed gallbladder with multiple small gallstones within the gallbladder. Specimen: Gallbladder Estimated blood loss: 15 mL Complications: None Procedure details: Patient was brought to the OR and placed in a supine position. After administering general anesthesia the patient's abdomen was prepped with ChloraPrep and draped in a sterile fashion. Local anesthesia consisting of 0.25% Sensorcaine with epinephrine was infiltrated in a periumbilical region. A 5 mm incision was made above the umbilicus in a transverse fashion. The Veress needle was then inserted while elevating abdominal cavity with towel clips. After positive drop test the abdomen was insufflated to a pressure of 15 mm of mercury. The Veress needle was then removed and a 5 mm trocar inserted. The camera was inserted in the abdomen explored. A 12 mm trocar was then placed in the epigastrium and two 5 mm trocars placed in the right upper quadrant. The patient was placed in reverse Trendelenburg positioning and rotated to the left. The gallbladder was grasped with the fundus and retracted cephalad.. The infundibulum Was then grasped and retracted away from the liver bed. The Dolphin dissected was then used to dissect the peritoneum off the infundibulum to reveal the junction with the cystic duct. Cystic artery was noted slightly medial and posterior to the cystic duct. After obtaining a critical view the cystic duct was doubly clipped and divided. The cystic artery was then doubly clipped and divided. The gallbladder was then dissected off the liver bed using electrocautery with an L hook. Hemostasis was assured all times using the electrocautery. When the gallbladder is completely dissected off the liver bed was placed in an Endo-Catch bag and brought out through the epigastric incision. The gallbladder was sent to pathology for further examination. The abdomen was then re-examined. The liver bed was irrigated and suctioned dry. No bleeding or bile leak could be identified. CO2 was then evacuated and all trocars removed. Fascia was closed at the epigastric incision using a [id number] 0 Polysorb suture. Skin was closed in all incisions using a subcuticular 4 0 Polysorb suture. Sterile dressings consisting of Steri-Strips, 2 x 2 gauze, and Tegaderm were then applied. The patient tolerated the procedure well. Sponge instrument and needle counts reported as correct. The patient was transferred to PACU in stable condition.
[2020-05-26] MEDS: fentaNYL citrate/PF 100 MCG/2 ML VIAL 25 MCG IVPUSH ×3 (12:16→14:05)
[2020-05-26] MEDS: ondansetron HCL 4 MG/2 ML VIAL IVPUSH (13:07)
--- NOTE | 2020-05-26 14:41 | HO.PM.IMPN ---
Subjective Subjective Date of Service: 05/26/20 Interval History: Seen in f/u for Choleystitis s/p CCY today 05/26. Generally isn't feeling good since surgery ROS: Physical Exam Vital Signs: Vital Signs: Last Vital Signs Temp 98.5 F 05/26/20 13:35 Pulse 69 05/26/20 14:12 Resp 14 05/26/20 14:12 BP 120/69 05/26/20 14:12 Pulse Ox 93 05/26/20 14:12 Body Mass Index 29.5 General: AO X 3, no acute distress Resp: normal resp effort GI: sligh tenderness around incisions, no distention Skin: No rash Neuro: motor grossly intact Psych: appropriate affect Objective Data Current Medications Generic Name Dose Route Start Last Admin Trade Name Freq PRN Reason Stop Dose Admin Acetaminophen 650 mg 05/23/20 01:15 05/25/20 16:54 Acetaminophen 325 Mg Tablet PO 650 mg Q6H PRN Administration Pain, Mild (Pain Scale 1-3) Acetaminophen 650 mg 05/23/20 13:41 Acetaminophen 325 Mg Tablet PO ONCE PRN Pain, Mild (Pain Scale 1-3) Ezetimibe 10 mg 05/23/20 09:00 05/25/20 08:09 Ezetimibe 10 Mg Tablet PO Not Given DAILY [facility] Fentanyl 25 mcg 05/26/20 10:29 05/26/20 14:05 Fentanyl Citrate/Pf 100 Mcg/2 Ml Vial IVPUSH 25 mcg Q5M PRN Administration Pain, Moderate (Pain Scale 4-6 Hydromorphone HCl 0.5 mg 05/23/20 01:15 05/26/20 04:58 Hydromorphone Hcl 0.5 Mg/0.5 Ml Syringe IVPUSH 0.5 mg Q4H PRN Administration Pain, Severe (Pain Scale 7-10) Piperacillin Sod/Tazobactam 50 mls @ 100 mls/hr 05/25/20 16:00 05/26/20 11:32 Sod 3.375 gm/ Sodium Chloride IV Not Given Q6H [facility] Cefotetan Disodium 2 gm/ 50 mls @ 100 mls/hr 05/26/20 08:00 Sodium Chloride IV 05/26/20 23:00 PREOP [facility] Ondansetron HCl 4 mg 05/23/20 04:02 05/25/20 23:56 Ondansetron Hcl 4 Mg/2 Ml Vial IVPUSH 4 mg Q8H PRN Administration Nausea and Vomiting Ondansetron HCl 4 mg 05/26/20 10:29 05/26/20 13:07 Ondansetron Hcl 4 Mg/2 Ml Vial IVPUSH 4 mg ONCE PRN Administration Nausea and Vomiting Sodium Chloride 3 ml 05/23/20 08:00 05/26/20 07:45 0.9 % Sodium Chloride Flush 3 Ml Syringe IVFLUSH 3 ml QSHIFT JOSE Administration Labs CBC & Chem 7: 05/25/20 13:21 05/25/20 13:21 Assessment and Plan (1) Abdominal pain: Status: Acute Assessment and Plan: 44-year-old male with a past medical history of GERD, Seaman's esophagus, esophagitis, ALBERT presented to the hospital with a chief complaint of upper abdominal pain. Noted to have gastritis/stomach distention. Failed oral challenge in the ER. Admitted to the hospital for further management. Abdominal pain with nausea/vomitting and CT 05/22 showed gastritis versus peptic ulcer diseas, gastric distension with abrupt transition at the level of the duodenum. EGD 05/23 by showed Seaman esophagus and gastritis Repeat CT 05/24 showed gallbladder wall thickening ultrasound abdomen done 05/25 showed acute cholecystitis Underwent CCY by Dr. Jolley on 05/26 Post op managment by surgery GERD, gastritis--PPI DVT prophylaxis: SCD boots
[2020-05-26] MEDS: oxyCODONE HCl Immed Release 5 MG TABLET PO (17:24)
[2020-05-27] MEDS: 0.9 % Sodium Chloride Flush 3 ML SYRINGE IVFLUSH ×2 (00:38→08:40)
[2020-05-27] MEDS: HYDROmorphone HCl 0.5 MG/0.5 ML SYRINGE IVPUSH (03:00)
[2020-05-27 03:37] VITALS: BP 109/63; PULSE 50; RESP 20; TEMP 36.1; O2SAT 97
[2020-05-27] MEDS: Piperacillin Sodium/Tazobactam 3.375 GM in 0.9 % Sodium Chloride 50 ML IV (03:37)
[2020-05-27 05:53] LABS: MANUAL DIFF FLAG NO
[2020-05-27 05:59] LABS: Basophils Percent Auto 0.2 % (0-2); Eosinophils Absolute Auto 0.1 X10*3/uL (0.0-0.4); Eosinophils Percent Auto 0.5 % (0-4); Hematocrit 41.4 % (42-52); Hemoglobin 13.9 g/dl (14.0-18.0); Imm Gran Abs Auto 0.03 X10*3/uL (0.00-0.03); Imm Gran Pct Auto 0.3 % (0.0-0.4); Lymphocytes Absolute Auto 1.7 X10*3/uL (1.2-4.9); Lymphocytes Percent Auto 18.3 % (20-40); Mean Corpuscular HGB Conc 33.6 g/dl (31.0-36.0); Mean Corpuscular Hemoglobin 30.7 pg (27.0-33.0); Mean Corpuscular Volume 91.4 fL (80-98); Mean Platelet Volume 10.7 fL (9.4-12.4); Monocytes Absolute Auto 0.9 X10*3/uL (0.1-1.2); Monocytes Percent Auto 9.4 % (2-11); Neutrophils Absolute Auto 6.6 X10*3/uL (2.0-8.3); Neutrophils Percent Auto 71.3 % (45-73); Platelet Count 210 X10*3/uL (160-400); Red Blood Count 4.53 X10*6/uL (4.60-5.80); Red Cell Distribution Width 12.2 % (11.0-16.0); White Blood Count 9.3 X10*3/uL (4.8-10.8)
[2020-05-27 07:17] VITALS: BP 108/60; PULSE 55; RESP 18; TEMP 36.5; O2SAT 98
--- NOTE | 2020-05-27 07:56 | PM.PNGS ---
Subjective Subjective Date of Service: 05/27/20 <Pascale Banerjee PA-C - Last Filed: 05/27/20 08:00> 05/27/20 <Aguila Lal MD - Last Filed: 05/27/20 08:17> Interval history: Had difficulty with pain and nausea in recovery yesterday and reports hiccups that worsen pain at incisions. Has some RUQ discomfort that goes to R shoulder. Tolerating diet. OOB and ambulating halls. <Pascale Banerjee PA-C - Last Filed: 05/27/20 08:00> Physical Exam Vital Signs: Vital Signs: Last Vital Signs Temp 97.7 F 05/27/20 07:17 Pulse 55 05/27/20 07:17 Resp 18 05/27/20 07:17 BP 108/60 05/27/20 07:17 Pulse Ox 98 05/27/20 07:17 Body Mass Index 29.5 <Pascale Banerjee PA-C - Last Filed: 05/27/20 08:00> Const: General: comfortable, no acute distress and alert <Pascale Banerjee PA-C - Last Filed: 05/27/20 08:00> Orientation/consciousness: patient oriented x3 <Pascale Banerjee PA-C - Last Filed: 05/27/20 08:00> Eyes: Sclerae: sclerae normal <Pascale Banerjee PA-C - Last Filed: 05/27/20 08:00> Resp: Effort & Inspection: normal respiratory effort <Pascale Banerjee PA-C - Last Filed: 05/27/20 08:00> Cardio: Rate: regular rate <Pascale Banerjee PA-C - Last Filed: 05/27/20 08:00> GI: Inspection: No distended and Yes incision (DRESSINGS C/D/I) <GONZÁLEZ Diaz Last Filed: 05/27/20 08:00> Palpation (GI): Soft to palpation, Tenderness to palpation present (GI) (mild, incisional), no guarding, not rigid and No Rebound tenderness present <Pascale Banerjee PA-C - Last Filed: 05/27/20 08:00> Percussion: Yes normal to percussion <Pascale Banerjee PA-C - Last Filed: 05/27/20 08:00> Skin: Other: normal color, warm and dry <Pascale Banerjee PA-C - Last Filed: 05/27/20 08:00> General skin exam: no rashes or lesions noted <Pascale Banerjee PA-C - Last Filed: 05/27/20 08:00> Neuro: General: patient oriented x3 <Pascale Banerjee PA-C - Last Filed: 05/27/20 08:00> Extrem: General: Yes no clubbing, cyanosis or edema <Pascale Banerjee PA-C - Last Filed: 05/27/20 08:00> Progress Note: A&P Assessment and plan (1) Cholecystitis, acute with cholelithiasis: Status: Acute <Pascale Banerjee PA-C - Last Filed: 05/27/20 08:00> (2) S/P laparoscopic cholecystectomy: Problem details: POD #1 <Pascale Banerjee PA-C - Last Filed: 05/27/20 08:00> Status: Acute <Pascale Banerjee PA-C - Last Filed: 05/27/20 08:00> Assessment and Plan: Doing fairly well post op now but having difficuly with hiccups and referred pain. VSS. Abd exam with appropriate post op tenderness, dressings c/d/i. Will reassess later today. If tolerating solid diet, pain well controlled he is stable for d/c to home. Patient comfortable with plan. <Pascale Banerjee PA-C - Last Filed: 05/27/20 08:00> Patient with some abdominal discomfort and hiccups which seem to be aggravating his abdominal pain. Overall he is much improved this morning and will try or his regular diet. Agree with the above assessment and plan. <Aguila Lal MD - Last Filed: 05/27/20 08:17> Fall Risk Details Current Medications: Current Medications Generic Name Dose Route Start Last Admin Trade Name Freq PRN Reason Stop Dose Admin Ezetimibe 10 mg 05/23/20 09:00 05/26/20 15:23 Ezetimibe 10 Mg Tablet PO Not Given DAILY JOSE Hydromorphone HCl 0.5 mg 05/23/20 01:15 05/27/20 03:00 Hydromorphone Hcl 0.5 Mg/0.5 Ml Syringe IVPUSH 0.5 mg Q4H PRN Administration Pain, Severe (Pain Scale 7-10) Acetaminophen 1,000 mg in 100 mls @ 400 mls/hr 05/26/20 15:15 05/27/20 03:37 Ofirmev IV 05/27/20 09:29 Infused Q6H JOSE Infusion Omeprazole 40 mg 05/27/20 09:00 Omeprazole 40 Mg Capsule.Dr PO DAILY JOSE Ondansetron HCl 4 mg 05/23/20 04:02 05/25/20 23:56 Ondansetron Hcl 4 Mg/2 Ml Vial IVPUSH 4 mg Q8H PRN Administration Nausea and Vomiting Ondansetron HCl 4 mg 05/26/20 10:29 05/26/20 13:07 Ondansetron Hcl 4 Mg/2 Ml Vial IVPUSH 4 mg ONCE PRN Administration Nausea and Vomiting Oxycodone HCl 5 mg 05/26/20 14:43 05/26/20 17:24 Oxycodone Hcl Immed Release 5 Mg Tablet PO 5 mg Q6H PRN Administration Pain, Moderate (Pain Scale 4-6 Sodium Chloride 3 ml 05/23/20 08:00 05/27/20 00:38 0.9 % Sodium Chloride Flush 3 Ml Syringe IVFLUSH 3 ml QSHIFT JOSE Administration <Pascale Banerjee PA-C - Last Filed: 05/27/20 08:00> Time Spent With Patient Time: Total time spent is greater than 50% in coordination of care (as documented) at patient's floor/unit and/or counseling patient: <Pascale Banerjee PA-C - Last Filed: 05/27/20 08:00> Time with patient: 15 - 24 minutes <Pascale Banerjee PA-C - Last Filed: 05/27/20 08:00>
[2020-05-27] MEDS: Ezetimibe 10 MG TABLET PO (08:32)
[2020-05-27] MEDS: Omeprazole 40 MG CAPSULE.DR PO (08:32)
[2020-05-27] MEDS: ondansetron HCL 4 MG/2 ML VIAL IVPUSH (08:43)
[2020-05-27] MEDS: oxyCODONE HCl Immed Release 5 MG TABLET PO (08:43)
--- NOTE | 2020-05-27 09:24 | P.DS_ITS ---
DS: Providers Provider Date of Service: 05/27/20 Date of admission: 05/23/20 01:15 Date of discharge: 05/27/20 [facility] Admitting clinician: Chinmay Vergara Attending physician on admission: Chinmay Vergara Consults: 05/23/20 01:17 Consult to Gastroenterology Routine Consulting Provider: Eavn Mercer Reason for consultation: PUD; abd pain; distended stomach 05/25/20 13:08 Consult to General Surgery Routine Consulting Provider: Aguila Lal Reason for consultation: acute cholecystitis Attending physician on discharge: Bruce Sequeira Discharging clinician: Sandra Loza DS: Diagnosis Discharge Diagnosis (1) S/P laparoscopic cholecystectomy: Status: Acute DS: Medications Discharge Medications Home Medications: Previous Rx's Medication Instructions Recorded omeprazole 40 mg capsule,delayed 40 mg PO DAILY 30 Days #30 cap 12/25/19 release ezetimibe 10 mg tablet 10 mg PO DAILY #90 tab 04/29/20 DS: Summary Hospital Course Hospital Course: 44-year-old male with a past medical history of peptic ulcer disease, GERD, Seaman's esophagus, esophagitis, ALBERT presented to the hospital with a chief co mplaint of epigastric pain started today. Denies any nausea vomiting. Denies any diarrhea or blood in the stool. Has been passing gas. Denies any numbness tingling. Denies any fever chills cough. Denies any urinary symptoms. Review of all other systems is negative except mentioned above ER course: Per ER team patient noted to have epigastric tenderness. CT scan showed distended stomach with a transition bite; discussed with Dr. Viramontes is from general surgery who mentioned it is nonsurgical and recommended GI consult for possible EGD. Given pain medications admitted to the hospital for further management. Acute cholecystitis status post cholecystectomy. Initially thought to have gastritis versus peptic ulcer disease however subsequent imaging showed thickened gallbladder suggesting acute cholecystitis. Patient laparoscopic cystectomy on May 26. Patient was transition to regular diet, pain controlled. Patient feels well enough today to go home. He will follow-up with the general surgeon as outpatient. GERD. Continue PPI Attending: Dr. Sequeira Status at Discharge Functional status at discharge: independent ambulation Time Spent with Patient Time attestation: Total time spent providing and/or coordinating discharge services: Discharge coordination time: Greater than 30 minutes Physical Exam Vital Signs: Vital Signs: Last Vital Signs Temp 97.7 F 05/27/20 07:17 Pulse 55 05/27/20 07:17 Resp 18 05/27/20 07:17 BP 108/60 05/27/20 07:17 Pulse Ox 98 05/27/20 07:17 Body Mass Index 29.5 Appearing in no acute distress head is normocephalic atraumatic eyes pupils are PERRLA sclera is anicteric mouth throat mucous membranes are intact and moist neck is supple no lymphadenopathy, no JVD noted lung sounds are clear to auscultation heart regular rate rhythm, clear S1, S2 positive bowel sounds mild tenderness near surgical site neuro patient is alert x3, no focal deficits DS: Data Data Completed and Pending Pending studies at discharge: Pending at discharge 05/23/20 13:55 Surgical [PTH] Routine 05/26/20 10:27 Surgical [PTH] Routine Labs on day of discharge: Laboratory Results - last 24 hr 05/27/20 05:39 WBC 9.3 RBC 4.53 L Hgb 13.9 L Hct 41.4 L MCV 91.4 MCH 30.7 MCHC 33.6 RDW 12.2 Plt Count 210 MPV 10.7 Immature Gran % (Auto) 0.3 Neut % (Auto) 71.3 Lymph % (Auto) 18.3 L [place] % (Auto) 9.4 Eos % (Auto) 0.5 Baso % (Auto) 0.2 Lymph # (Auto) 1.7 [place] # (Auto) 0.9 Eos # (Auto) 0.1 Baso # (Auto) 0.0 Abs Immat Gran (auto) 0.03 Absolute Neuts (auto) 6.6 Absolute Nucleated RBC 0.000 Nucleated RBC % (auto) 0.0 Discharge Plan Discharge Anticipated Discharge Date/Time: 05/27/20 09:34 Patient Disposition: Home, Self-Care Referrals: Aguila Shook FNP-ZEESHAN [Primary Care Provider] - Aguila Lal MD [Physician] - 1 Week Discharge Medications: New ondansetron HCl [Zofran] 4 mg tablet 4 mg PO Q8H PRN (Reason: abdominal pain) Qty: 9 RF: 0 oxycodone 5 mg capsule 5 mg PO Q8H PRN (Reason: abdominal pain ) Qty: 9 RF: 0 Continued ezetimibe 10 mg tablet 10 mg PO DAILY Qty: 90 RF: 0 omeprazole 40 mg capsule,delayed release(DR/EC) 40 mg PO DAILY 30 Days Qty: 30 RF: 6 Discharge Orders: Discharge Order (Routine); Ordered 05/27/20 Ordered By: Sandra Loza Diet: low fat, low cholesterol Activity on Discharge: As tolerated Stand Alone Forms: Patient Portal Discharge page, Work/School Release Activity Restrictions/Additional Instructions: If the incision area is tender, you may apply an ice pack for short intervals (No more than 20 minutes on, followed by at least 20 minutes off). Do not apply heat. Do not use creams, lotions, or topical antibiotics unless instructed to do so by your surgeon. These can cause infection or allergic reaction. Ok to shower. Remove clear dressings 3 days following your procedure. You have steri strips (small white cloth strips) covering your incision- these will fall off ~1 week. No heavy lifting (>10lbs)! Call Your Doctor If: -Your temperature exceeds 101.5? F -You experience excessive pain or swelling -You have an unexpected reaction to medication -You have excessive bleeding -You experience continued vomiting/nausea -Your incision begins to separate -Your incision shows signs of infection such as increased redness, swelling, excessive pain, drainage (light blood or clear fluid is normal) or he at Care Plan Goals: resolution of symptoms, pain management Health Concerns: acute cholecystitis Plan of Treatment: follow-up with primary care provider as needed. Follow-up with general surgeon Dr. Aguila Lal as needed.
--- NOTE | 2020-05-27 09:39 | MHC.CM.PN ---
PT BEING CLEARED TO DISCHARGE HOME TODAY WITH NO SERVICES. PT TO SELF ARRANGE TRANSPORT
--- NOTE | 2020-05-27 11:49 | HO.POSTANES ---
Post Anesthesia Evaluation Post Anesthesia Evaluation Vital Signs: Vital Signs Temp Pulse Resp BP Pulse Ox 05/27/20 07:17 97.7 F 55 18 108/60 98 05/27/20 03:37 97.0 F 50 20 109/63 97 Anesthesia: General Endotracheal-GETA Mental Status: Awake Pain Control: Satisfactory Nausea/Vomiting: None Hydration: Adequate Anesthesia-Related Issues: No Anes. Related Issues
[2020-05-29 13:27] LABS: Gastrin 138 pg/mL (<=100)
== END 2020-05-27 11:36 | disposition home or self-care (01) | DRG 263 ==
LOC: HO.ED 05-23 00:32 → HO.EDOVER 05-23 01:27 → HO.IMC 05-23 02:10 → HO.S3 05-26 12:08
PROVIDERS: Internal Medicine; Internal Medicine Gastroenterology; Surgery; Admitting Provider Hospitalist; Emergency Provider Emergency Medicine; PCP Nurse Practitioner Family; Visit Provider Family Medicine
PROC: 0DJ08ZZ Inspection of Upper Intestinal Tract, Via Natural or Artificial Opening Endoscopic (ICD-10-PCS; CPT 43235; principal; 2020-05-23 13:30)
PROC: 0FT44ZZ Resection of Gallbladder, Percutaneous Endoscopic Approach (ICD-10-PCS; CPT 47562; principal; 2020-05-26 09:15)
DX: K80.00 Calculus of gallbladder with acute cholecystitis without obstruction (principal); K22.70 Barrett's esophagus without dysplasia; K21.00 Gastro-esophageal reflux disease with esophagitis, without bleeding; K29.70 Gastritis, unspecified, without bleeding; G47.33 Obstructive sleep apnea (adult) (pediatric); K44.9 Diaphragmatic hernia without obstruction or gangrene; Z20.822 Contact with and (suspected) exposure to COVID-19; Z79.899 Other long term (current) drug therapy
CPT/HCPCS: 36415; 71045; 74177; 76700; 80048; 80076; 82941; 83605; 83690; 84484; 85025; 85610; 87635; 88304; 88305; 88342; 93005; 96374; 96375; 99024; 99285; J0131; J1100; J1170; J1885; J2250; J2370; J2405; J2543; J3010; Q9967

== ENCOUNTER → 2020-06-05 15:05 | Outpatient (BNVA) | payer OTHER, SELFPAY | PROVIDERS: PCP Nurse Practitioner Family; Visit Provider Surgery ==

== ENCOUNTER 2020-09-05 12:23 | Outpatient (REF) | payer OTHER, SELFPAY ==
[2020-09-06 11:07] LABS: Immunoglobulin E 63 kU/L (<OR=114)
== END 2020-09-05 12:24 | disposition home or self-care (01) ==
LOC: HO.WFDLDS 12:23
PROVIDERS: Visit Provider Allergy & Immunology
DX: T78.1XXA Other adverse food reactions, not elsewhere classified, initial encounter (principal)
CPT/HCPCS: 36415; 82785; 83520; 86003

== ENCOUNTER 2020-11-22 07:33 | Outpatient (REF) | payer OTHER, SELFPAY ==
[2020-11-22 09:25] LABS: COVID-19 Test Negative (Negative)
== END 2020-11-22 07:34 | disposition home or self-care (01) ==
LOC: HO.LAB 07:33
PROVIDERS: Visit Provider Internal Medicine
DX: Z20.822 Contact with and (suspected) exposure to COVID-19 (principal)
CPT/HCPCS: 36415; 87635; C9803

== ENCOUNTER 2021-03-05 08:09 | Outpatient (REF) | payer OTHER, SELFPAY ==
[2021-03-05 11:23] LABS: Appearance Urine CLEAR; Color Urine YELLOW; Glucose Urine UA NEG (NEG); Leukocyte Esterase Urine NEG (NEG); Nitrite Urine NEG (NEG); PH 7.5 (5.0-8.0); Urine Blood NEG (NEG); Urine Ketones NEG (NEG); Urine Protein NEG (NEG-TRACE)
[2021-03-05 11:48] LABS: Alanine Aminotransferase 63 U/L (0-40); Albumin Level 4.3 g/dL (3.5-5.0); Alkaline Phosphatase 85 U/L (39-117); Anion Gap 10 (12-20); Aspartate Amino Transferase 33 U/L (5-37); Bilirubin Total 0.6 mg/dL (0.0-1.0); Blood Urea Nitrogen 14 mg/dL (9-16); Calcium 9.8 mg/dL (8.4-10.2); Carbon Dioxide 29 mmol/L (22-29); Chloride 109 mmol/L (96-108); Cholesterol 219 mg/dL; Estimated Glomerular Filt Rate > 60; Glucose Fasting 93 mg/dL (60-99); HDL Cholesterol 46 mg/dL; LDL Cholesterol Calculated 155 mg/dl; Potassium 4.7 mmol/L (3.3-5.1); Sodium 143 mmol/L (135-145); Total Protein 7.3 g/dL (6.5-8.0); Triglycerides 92 mg/dL
[2021-03-05 12:12] LABS: TSH reflex Free T4 1.13 uIU/mL (0.32-4.0)
== END 2021-03-05 08:10 | disposition home or self-care (01) ==
LOC: HO.HMGCLDS 08:09
PROVIDERS: PCP Nurse Practitioner Family; Visit Provider Nurse Practitioner Family
DX: Z00.00 Encounter for general adult medical examination without abnormal findings (principal)
CPT/HCPCS: 36415; 80053; 80061; 81003; 84443

== ENCOUNTER 2021-03-17 08:09 | Outpatient (REF) | payer OTHER, SELFPAY ==
[2021-03-17 11:24] LABS: HBc Num1 0.14 S/CO (0.00-0.79); HBsAGNum1 0.28 S/CO (0.00-0.99); Hepatitis B Core Antibody Nonreactive (Nonreactive); Hepatitis B Surface Antigen Negative (Negative); ~Hepatitis C Antibody Nonreactive (Nonreactive)
[2021-03-17 11:30] LABS: ~Hepatitis B Surface Antibody NONREACTIVE (Nonreactive)
[2021-03-19 08:35] LABS: Hepatitis A Antibody IgM 0.17 Index (0-0.79); ~Hepatitis A Antibody IgM Nonreactive (Nonreactive)
== END 2021-03-17 08:10 | disposition home or self-care (01) ==
LOC: HO.WFDLDS 08:09
PROVIDERS: Visit Provider Nurse Practitioner Family
DX: R74.8 Abnormal levels of other serum enzymes (principal)
CPT/HCPCS: 36415; 86704; 86706; 86709; 86803; 87340

== ENCOUNTER 2021-03-27 11:05 | Outpatient (REF) | payer OTHER, SELFPAY ==
--- NOTE | ~2021-03-27 | US_ITS ---
EXAMINATION: US ABDOMEN COMPLETE CLINICAL INFORMATION: Abnormal levels of other serum enzymes. COMPARISON: Ultrasound abdomen complete 05/25/2020. CT abdomen and pelvis 05/24/2020. TECHNIQUE: Real-time imaging of the abdominal viscera. FINDINGS: PANCREAS: The visualized portion of the pancreas head and body are normal, portion of the pancreatic body and tail, not visualized are obscured by bowel gas. ABDOMINAL AORTA: The proximal, mid, and distal segments are normal in caliber. INFERIOR VENA CAVA: Visualized portions are normal. LIVER: Normal. The liver is normal in size. The liver contour is normal. Parenchymal echogenicity is normal. No focal hepatic lesion. There is no intrahepatic biliary duct dilatation seen. GALLBLADDER: Surgically absent. COMMON BILE DUCT: Normal in caliber measuring 0.7 cm in diameter. RIGHT KIDNEY: Normal. No hydronephrosis. No renal calculi or focal parenchymal lesions. The kidney measures 11.6 cm in maximum dimension. LEFT KIDNEY: Normal. No hydronephrosis. No renal calculi or focal parenchymal lesions. The kidney measures 11.0 cm in maximum dimension. SPLEEN: Normal. The spleen measures 10.7 cm in maximum dimension. FREE FLUID: None. US/US abdomen complete IMPRESSION: Status post cholecystectomy. Ultrasound otherwise is normal.
== END 2021-03-27 11:06 | disposition home or self-care (01) ==
LOC: HO.US 11:05
PROVIDERS: PCP Nurse Practitioner Family; Visit Provider Nurse Practitioner Family
DX: R74.8 Abnormal levels of other serum enzymes (principal)
CPT/HCPCS: 76700

== ENCOUNTER 2021-08-12 11:58 | Outpatient (REF) | payer OTHER, SELFPAY ==
[2021-08-12 13:48] LABS: MANUAL DIFF FLAG NO
[2021-08-12 13:50] LABS: Basophils Percent Auto 0.6 % (0-2); Eosinophils Absolute Auto 0.1 X10*3/uL (0.0-0.4); Eosinophils Percent Auto 1.5 % (0-4); Hematocrit 45.9 % (42.0-52.0); Hemoglobin 15.3 g/dl (14.0-18.0); Imm Gran Abs Auto 0.02 X10*3/uL (0.00-0.03); Imm Gran Pct Auto 0.4 % (0.0-0.4); Lymphocytes Absolute Auto 2.1 X10*3/uL (1.2-4.9); Lymphocytes Percent Auto 39.7 % (20-40); Mean Corpuscular HGB Conc 33.3 g/dl (31.0-36.0); Mean Corpuscular Hemoglobin 30.5 pg (27.0-33.0); Mean Corpuscular Volume 91.6 fL (80.0-98.0); Mean Platelet Volume 10.8 fL (9.4-12.4); Monocytes Absolute Auto 0.5 X10*3/uL (0.1-1.2); Monocytes Percent Auto 9.3 % (2-11); Neutrophils Absolute Auto 2.5 x10*3/uL (2.0-8.3); Neutrophils Percent Auto 48.5 % (45-73); Platelet Count 183 X10*3/uL (160-400); Red Blood Count 5.01 X10*6/uL (4.60-5.80); Red Cell Distribution Width 12.8 % (11.0-16.0); White Blood Count 5.2 X10*3/uL (4.8-10.8)
[2021-08-12 14:15] LABS: Alanine Aminotransferase 43 U/L (0-40); Albumin Level 4.5 g/dL (3.5-5.0); Alkaline Phosphatase 90 U/L (39-117); Anion Gap 11 (12-20); Aspartate Amino Transferase 23 U/L (5-37); Bilirubin Total 0.3 mg/dL (0.0-1.0); Blood Urea Nitrogen 15 mg/dL (9-16); C Reactive Protein 0.06 mg/dL (< or = 0.50); Calcium 9.4 mg/dL (8.4-10.2); Carbon Dioxide 27 mmol/L (22-29); Chloride 108 mmol/L (96-108); Estimated Glomerular Filt Rate > 60; Glucose Random 86 mg/dL (60-115); Iron 75 mcg/dL (45-160); Percent Iron Saturation 21 % (15-50); Sodium 142 mmol/L (135-145); Total Iron Binding Capacity 361 mcg/dL (228-428); Total Protein 7.3 g/dL (6.5-8.0); Unsaturated Iron Binding 286 ug/dL
[2021-08-12 14:33] LABS: Folate 9.1 ng/mL (> or = 4.0); Vitamin B12 328 pg/mL (200-900)
[2021-08-12 14:36] LABS: Ferritin 95 ng/mL (20-250); TSH reflex Free T4 1.23 uIU/mL (0.32-4.0)
[2021-08-12 14:38] LABS: Erythrocyte Sedimentation Rate 6 MM/HR (0-15)
[2021-08-13 06:49] LABS: HIV AB/AG Nonreactive (Nonreactive); HIV Num 1 0.09 S/CO (0.00-0.99)
[2021-08-14 02:32] LABS: Lyme Blot 1.39 index
[2021-08-15 04:06] LABS: Babesia IgG <1:64 titer (<1:64); Babesia IgM <1:20 titer (<1:20)
[2021-08-15 05:12] LABS: A. Phagocytophilum Ab IgG <1:64 (<1:64); A. Phagocytophilum Ab IgM <1:20 (<1:20); E. Chaffeensis Ab IgG <1:64 (<1:64); E. Chaffeensis Ab IgM <1:20 (<1:20)
[2021-08-15 09:31] LABS: 18 KD (IgG) Band NON-REACTIVE; 23 KD (IgG) Band NON-REACTIVE; 23 KD (IgM) Band REACTIVE; 28 KD (IgG) Band NON-REACTIVE; 30 KD (IgG) Band NON-REACTIVE; 39 KD (IgM) Band NON-REACTIVE; 39KD (IgG) Band NON-REACTIVE; 41 KD (IgM) Band NON-REACTIVE; 41KD (IgG) Band REACTIVE; 45 KD (IgG) Band NON-REACTIVE; 58 KD (IgG) Band NON-REACTIVE; 66 KD (IgG) Band NON-REACTIVE; 93 KD (IgG) Band NON-REACTIVE; Lyme IgG Blot Interp NEGATIVE (NEGATIVE); Lyme IgM Blot Interp NEGATIVE (NEGATIVE)
[2021-08-15 09:34] LABS: Lyme Abs Screen POSITIVE
== END 2021-08-12 11:59 | disposition home or self-care (01) ==
LOC: HO.HMGCLDS 11:58
PROVIDERS: PCP Nurse Practitioner Family; Visit Provider Nurse Practitioner Family
DX: R53.83 Other fatigue (principal); T14.8XXA Other injury of unspecified body region, initial encounter; W57.XXXA Bitten or stung by nonvenomous insect and other nonvenomous arthropods, initial encounter
CPT/HCPCS: 36415; 80053; 82607; 82728; 82746; 83540; 84443; 85025; 85652; 86140; 86617; 86618; 86666; 86753; 87389

== ENCOUNTER 2021-09-25 07:15 | Outpatient (REF) | payer OTHER, SELFPAY ==
[2021-09-25 11:44] LABS: Alanine Aminotransferase 63 U/L (0-40); Albumin Level 4.5 g/dL (3.5-5.0); Alkaline Phosphatase 87 U/L (39-117); Aspartate Amino Transferase 31 U/L (5-37); Bilirubin Direct 0.2 mg/dL (0.0-0.5); Bilirubin Total 0.5 mg/dL (0.0-1.0); Cholesterol 179 mg/dL; HDL Cholesterol 40 mg/dL; LDL Cholesterol Calculated 120 mg/dl; Total Protein 7.4 g/dL (6.5-8.0); Triglycerides 96 mg/dL
[2021-09-27 18:17] LABS: Lyme Blot 1.53 index
[2021-09-30 08:32] LABS: Lyme Abs Screen POSITIVE
[2021-09-30 08:43] LABS: 18 KD (IgG) Band NON-REACTIVE; 23 KD (IgG) Band NON-REACTIVE; 23 KD (IgM) Band REACTIVE; 28 KD (IgG) Band NON-REACTIVE; 30 KD (IgG) Band NON-REACTIVE; 39 KD (IgM) Band REACTIVE; 39KD (IgG) Band NON-REACTIVE; 41 KD (IgM) Band NON-REACTIVE; 41KD (IgG) Band REACTIVE; 45 KD (IgG) Band NON-REACTIVE; 58 KD (IgG) Band NON-REACTIVE; 66 KD (IgG) Band NON-REACTIVE; 93 KD (IgG) Band NON-REACTIVE; Lyme IgG Blot Interp NEGATIVE (NEGATIVE); Lyme IgM Blot Interp POSITIVE (NEGATIVE)
== END 2021-09-25 07:16 | disposition home or self-care (01) ==
LOC: HO.WFDLDS 07:15
PROVIDERS: Visit Provider Nurse Practitioner Family
DX: R74.8 Abnormal levels of other serum enzymes (principal); E78.5 Hyperlipidemia, unspecified; T14.8XXA Other injury of unspecified body region, initial encounter; W57.XXXA Bitten or stung by nonvenomous insect and other nonvenomous arthropods, initial encounter
CPT/HCPCS: 36415; 80061; 80076; 86617; 86618

== ENCOUNTER 2022-01-02 15:19 | Outpatient (REF) | payer OTHER, SELFPAY ==
[2022-01-02 16:06] LABS: Alanine Aminotransferase 58 U/L (0-40); Albumin Level 4.4 g/dL (3.5-5.0); Alkaline Phosphatase 95 U/L (39-117); Amylase 41 U/L (28-100); Anion Gap 15 (12-20); Aspartate Amino Transferase 25 U/L (5-37); Bilirubin Total 0.4 mg/dL (0.0-1.0); Blood Urea Nitrogen 18 mg/dL (9-16); C Reactive Protein 0.11 mg/dL (< or = 0.50); Calcium 9.5 mg/dL (8.4-10.2); Carbon Dioxide 25 mmol/L (22-29); Chloride 107 mmol/L (96-108); Estimated Glomerular Filt Rate > 60; Glucose Random 89 mg/dL (60-115); Lipase 25 U/L (8-78); Potassium 4.5 mmol/L (3.3-5.1); Sodium 142 mmol/L (135-145); Total Protein 7.2 g/dL (6.5-8.0)
[2022-01-02 16:27] LABS: TSH reflex Free T4 1.48 uIU/mL (0.32-4.0)
[2022-01-06 11:46] LABS: Transglutaminase Ab IgG <1.0 U/mL; Transglutaminase IgA <1.0 U/mL
== END 2022-01-02 15:20 | disposition home or self-care (01) ==
LOC: HO.LAB 15:19
PROVIDERS: PCP Nurse Practitioner Family; Visit Provider Nurse Practitioner
DX: K21.00 Gastro-esophageal reflux disease with esophagitis, without bleeding (principal); K22.70 Barrett's esophagus without dysplasia; K91.5 Postcholecystectomy syndrome; R74.8 Abnormal levels of other serum enzymes
CPT/HCPCS: 36415; 80053; 82150; 83690; 84443; 86003; 86140; 86364

== ENCOUNTER 2022-01-05 07:44 | Outpatient (REF) | payer OTHER, SELFPAY ==
[2022-01-14 16:07] LABS: Pancreatic Elastase-1 >500 mcg/g
== END 2022-01-05 07:45 | disposition home or self-care (01) ==
LOC: HO.LNP 07:44
PROVIDERS: Visit Provider Nurse Practitioner
DX: K21.00 Gastro-esophageal reflux disease with esophagitis, without bleeding (principal); R74.8 Abnormal levels of other serum enzymes; K22.70 Barrett's esophagus without dysplasia; K91.5 Postcholecystectomy syndrome
CPT/HCPCS: 82656

== ENCOUNTER 2022-04-24 07:10 | Outpatient (REF) | payer OTHER, SELFPAY ==
[2022-04-24 11:31] LABS: MANUAL DIFF FLAG NO
[2022-04-24 11:47] LABS: Appearance Urine Clear; Color Urine Yellow; Glucose Urine UA Negative (Negative); Leukocyte Esterase Urine Negative (Negative); Nitrite Urine Negative (Negative); Specific Gravity - Urine 1.025 (1.005-1.025); Urine Blood Negative (Negative); Urine Ketones Negative (Negative); Urine Protein Negative (Neg-Trace)
[2022-04-24 12:02] LABS: Basophils Absolute Auto 0.1 X10*3/uL (0.0-0.2); Basophils Percent Auto 0.8 % (0-2); Eosinophils Absolute Auto 0.1 X10*3/uL (0.0-0.4); Eosinophils Percent Auto 2.1 % (0-4); Hematocrit 48.4 % (42.0-52.0); Hemoglobin 16.4 g/dl (14.0-18.0); Imm Gran Abs Auto 0.03 X10*3/uL (0.00-0.03); Imm Gran Pct Auto 0.5 % (0.0-0.4); Lymphocytes Absolute Auto 2.4 X10*3/uL (1.2-4.9); Lymphocytes Percent Auto 38.5 % (20-40); Mean Corpuscular HGB Conc 33.9 g/dl (31.0-36.0); Mean Corpuscular Hemoglobin 30.9 pg (27.0-33.0); Mean Corpuscular Volume 91.1 fL (80.0-98.0); Mean Platelet Volume 10.8 fL (9.4-12.4); Monocytes Absolute Auto 0.7 X10*3/uL (0.1-1.2); Monocytes Percent Auto 11.1 % (2-11); Neutrophils Absolute Auto 2.9 x10*3/uL (2.0-8.3); Platelet Count 240 X10*3/uL (160-400); Red Blood Count 5.31 X10*6/uL (4.60-5.80); Red Cell Distribution Width 12.8 % (11.0-16.0); White Blood Count 6.2 X10*3/uL (4.8-10.8)
[2022-04-24 12:29] LABS: Alanine Aminotransferase 56 U/L (0-40); Albumin Level 4.4 g/dL (3.5-5.0); Alkaline Phosphatase 102 U/L (39-117); Anion Gap 14 (12-20); Aspartate Amino Transferase 28 U/L (5-37); Bilirubin Total 0.8 mg/dL (0.0-1.0); Blood Urea Nitrogen 17 mg/dL (9-16); Calcium 9.6 mg/dL (8.4-10.2); Carbon Dioxide 25 mmol/L (22-29); Chloride 108 mmol/L (96-108); Cholesterol 168 mg/dL; Estimated Glomerular Filt Rate > 60; Glucose Fasting 100 mg/dL (60-99); HDL Cholesterol 39 mg/dL; LDL Cholesterol Calculated 109 mg/dl; Potassium 4.7 mmol/L (3.3-5.1); Sodium 142 mmol/L (135-145); Total Protein 7.2 g/dL (6.5-8.0); Triglycerides 100 mg/dL
[2022-04-24 12:55] LABS: TSH reflex Free T4 1.36 uIU/mL (0.32-4.0)
== END 2022-04-24 07:11 | disposition home or self-care (01) ==
LOC: HO.WFDLDS 07:10
PROVIDERS: Visit Provider Nurse Practitioner Family
DX: Z00.00 Encounter for general adult medical examination without abnormal findings (principal)
CPT/HCPCS: 36415; 80053; 80061; 81003; 84443; 85025

== ENCOUNTER → 2022-07-24 15:08 | Outpatient (BNVA) | payer OTHER, SELFPAY | PROVIDERS: PCP Nurse Practitioner Family; Visit Provider Nurse Practitioner ==

== ENCOUNTER 2022-09-16 08:35 | Outpatient (AMB) | payer OTHER, SELFPAY ==
[2022-09-16 08:38] VITALS: BP 120/78; PULSE 72; O2SAT 99; BMI 32.6
--- NOTE | 2022-09-16 08:41 | AM.OFFWIN_ITS ---
Intake Vital Signs 09/16/22 08:38 Height 5 ft 9 in Weight 221 lb BMI 32.6 BP 120/78 Blood Pressure Location Lt brachial Position Sitting Pulse 72 Pulse Source Pulse Oximeter Pulse Oximetry (%) 99 Oxygen Delivery Method Room Air Intake Visit Reasons: Hand pain Intake Note: Patient is here with hand injury after running and falling, landed on his pinky in right hand now causing about half of hand to be in pain since 5 weeks ago. Patient Tobacco Use Status: Former Tobacco user Allergies shellfish derived Allergy (Verified 09/16/22 08:42) itchy neck, itchy feet rosuvastatin Adverse Reaction (Verified 09/16/22 08:42) nightmares Do you need a note to return to daycare/school/sports/work: No HPI Hand pain HPI Details 46 y/o male presents with complaints of hand pain. Pt states he had a hand injury after running and falling. He had landed on his pinky R hand and had been in pain x5 weeks. [facility] Medical History Seaman esophagus GERD (gastroesophageal reflux disease) Hiatal hernia Hyperlipidemia Surgical History H/O shoulder surgery Hx of endoscopy Family History Father Hx of congenital heart disease Mother History of cancer Social History Household Members: Family Housing: House Do you presently have visiting nurse or other home services: No Alcohol intake: current Alcohol intake frequency: holidays/special occasions only Patient Tobacco Use Status: Former Tobacco user Years Smoked: 15 yrs e-Cigarette/Vaping Use: Currently Using service: No Current occupational status: employed Cognitive needs: No Hearing needs: No Vision needs: No Review of Systems Const Denies chills, Denies fatigue, Denies fever(s), Denies headache(s) and Denies weakness ENT Denies dizziness and Denies headache(s) Card Denies dyspnea Resp Denies cough, Denies dyspnea, Denies wheezing and Denies other (shortness of breath) Musc Denies numbness and Denies tingling Neuro Denies dizziness, Denies headache(s), Denies numbness, Denies tingling and Denies weakness Psych Denies anxiety and Denies depression Endo Denies fatigue Aller/Immun Denies wheezing Physical Exam Vital Signs: Last Vital Signs Pulse 72 09/16/22 08:38 BP 120/78 09/16/22 08:38 Pulse Ox 99 09/16/22 08:38 Oxygen Delivery Method Room Air 09/16/22 08:38 BMI result Body Mass Index 32.6 Const General: well developed; No acute distress Nutritional Appearance: well nourished Orientation/consciousness: patient oriented x3 HEENT Head: Yes normocephalic and Yes atraumatic Eyes General: appearance normal, both eyes and all related structures Pupils: Equal, round and reactive pupils present EOM: EOMs intact bilaterally Resp Effort & Inspection: normal respiratory effort Neuro General: patient oriented x3 and gait normal Cranial nerves: Yes Equal, round and reactive pupils present Psych Affect: normal affect Assessment & Plan Assessment & Plan (1) Right hand pain: Code(s): M79.641 - Pain in right hand Plan: Right hand pain and swelling and base of 5th finger Will check x-ray to rule fracture Likely severe sprain so will refer to hand surgery Can use meloxicam and advised ice and elevation Patient declines time off from work Orders: Orders XR hand RT min 3V Today M79.641 - Pain in right hand Referrals Hand Surgery Referral M79.641 - Pain in right hand Medications: New meloxicam 15 mg PO DAILY 30 tabs 2RF 30 days M79.641 - Pain in right hand Coding Level of Care Code Est Pt Level 3 (15975) Diagnoses Right hand pain M79.641
== END 2022-09-16 08:58 | disposition home or self-care (01) ==
PROVIDERS: PCP Nurse Practitioner Family; Visit Provider Family Medicine
DX: M79.641 Pain in right hand (principal)
CPT/HCPCS: 99213

== ENCOUNTER 2022-09-28 16:08 | Outpatient (REF) | payer OTHER, SELFPAY ==
--- NOTE | ~2022-09-28 | XR_ITS ---
EXAMINATION: XR HAND, RIGHT CLINICAL INFORMATION: Right hand pain COMPARISON: None available. TECHNIQUE: PA, lateral, and oblique views of the right hand. FINDINGS: Moderate degenerative changes first carpometacarpal joint with joint space narrowing and hypertrophic change. Faint small linear density in the soft tissues adjacent to the distal tuft of the second digit may represent soft tissue calcification, ossific fragment or foreign body. Correlation with the clinical exam is recommended to determine further management. XR/XR hand RT min 3V IMPRESSION: Moderate degenerative changes first carpometacarpal joint. Faint small linear density in the soft tissues adjacent to the distal tuft of the second digit may represent soft tissue calcification, ossific fragment or foreign body. Correlation with the clinical exam is recommended to determine further management. Recommend follow-up imaging in 10-14 days if fracture is suspected. Additional imaging with CT scan or MRI should be considered for better visualization as these modalities are much more sensitive for detection of fracture or other underlying pathology.
== END 2022-09-28 16:09 | disposition home or self-care (01) ==
LOC: HO.XRAY 16:08
PROVIDERS: PCP Nurse Practitioner Family; Visit Provider Family Medicine
DX: M79.641 Pain in right hand (principal)
CPT/HCPCS: 73130

== ENCOUNTER 2022-10-14 08:03 | Outpatient (REF) | payer OTHER, SELFPAY ==
--- NOTE | ~2022-10-14 | XR_ITS ---
EXAMINATION: XR HAND, RIGHT CLINICAL INFORMATION: Pain in right hand COMPARISON: None available. TECHNIQUE: PA, lateral, and oblique views of the right hand. FINDINGS: The bones and soft tissues are normal. No fracture. Alignment is anatomic. Joint spaces are maintained. No erosions or soft tissue calcifications. XR/XR hand RT min 3V IMPRESSION: Unremarkable right hand.
== END 2022-10-14 08:04 | disposition home or self-care (01) ==
LOC: HO.HOSX 08:03
PROVIDERS: PCP Nurse Practitioner Family; Visit Provider Physician Assistant
DX: S66.911A Strain of unspecified muscle, fascia and tendon at wrist and hand level, right hand, initial encounter (principal); X58.XXXA Exposure to other specified factors, initial encounter; Y93.9 Activity, unspecified; Y92.9 Unspecified place or not applicable; Y99.9 Unspecified external cause status
CPT/HCPCS: 73130

== ENCOUNTER 2022-10-14 08:03 | Outpatient (AMB) | payer OTHER, SELFPAY ==
--- NOTE | 2022-10-14 08:13 | A.OFFVIS_ITS ---
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 Patient reports approximately 5 weeks prior to visit to [facility] walk in clinic on 09/17/22 he had a fall on his right hand. He continues to have pain and tenderness to the touch. His pain will radiate into his forearm with applying pressure. Denies numbness or tingling. 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 He was seen at walk-in clinic on 09/17/22. He states he has pain and tenderness to touch in his right hand which radiates into his forearm with applying pressure. His pain is aggravated with shaking and pulling activities with his hand. He denies any numbness, tingling or wrist pain. 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 [facility] Medical History Seaman esophagus GERD (gastroesophageal reflux disease) Hiatal hernia Hyperlipidemia Surgical History H/O shoulder surgery Hx of endoscopy Family History Father Hx of congenital heart disease Mother History of cancer Social History (Updated 10/14/22 @ 08:17 by ETHAN Davidson) Household Members: Family Housing: House Do you presently have visiting nurse or other home services: No Alcohol intake: current Alcohol intake frequency: holidays/special occasions only Patient Tobacco Use Status: Former Tobacco user Years Smoked: 15 yrs e-Cigarette/Vaping Use: Currently Using service: No Current occupational status: employed 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, 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 Cognitive needs: No Hearing needs: No Vision needs: No Review of Systems Const All systems reviewed & are unremarkable except as noted in HPI and below Physical Exam Vital Signs: BMI result Body Mass Index 32.6 Const General: cooperative, healthy appearing, comfortable, no acute distress, well developed and alert Orientation/consciousness: patient oriented x3 HEENT Head: Yes normal to inspection, Yes normocephalic and Yes atraumatic Eyes General: appearance normal, both eyes and all related structures Resp Effort & Inspection: normal respiratory effort and able to speak in complete se ntences Cardio Rate: regular rate Peripheral pulses: Peripheral pulses 2+ throughout GI Palpation (GI): Soft to palpation Skin Lesions: no lesions Rashes: no rashes Neuro General: patient oriented x3 Extrem Other: Right hand: Normal to inspection. He does have some minor swelling along the sma ll finger. He can make a full fist and fully extend the digits. He does have some tenderness to palpation over the DIP joint with varus and valgus stress. No other ligamentous laxity or discomfort. He also has some tenderness along the pisiform. No tenderness along the TFCC or ulnar styloid. No pain over the scaphoid lunate region. Full sensation throughout and pulses are present. Results Reviewed Results Reviewed: X-rays of the right hand obtained in the office today are negative for any acute fracture or dislocation. Assessment & Plan Assessment & Plan (1) Strain of right hand: Code(s): S66.911A - Strain of unspecified muscle, fascia and tendon at wrist and hand level, right hand, initial encounter Plan Images were reviewed with Dr. Saul in the office today. Reassurance was provided to the patient in regards to no acute abnormality. I encouraged him to continue with daily activities and increase activity as tolerated. If he would like to begin a course of occupational therapy, he will contact the office but he is not interested at this time. If symptoms persist or worsens, patient will contact the office, otherwise follow-up as needed. Orders: Orders XR hand RT min 3V Today M79.641 - Pain in right hand Patient Instructions: Scribed for Shelly Mccoy PA-C, by Malik Ramirez medical coordinator pesticide use, on 10/14/2022 at 8:00 AM EST. IShelly PA-C, have personally reviewed and agree with the information entered by the scribe. Coding Level of Care Code New Pt Level 3 (20967) Diagnoses Strain of right hand S66.911A
[2022-10-14 08:19] VITALS: BMI 32.6
== END 2022-10-14 09:00 | disposition home or self-care (01) ==
PROVIDERS: PCP Nurse Practitioner Family; Visit Provider Physician Assistant
DX: S66.911A Strain of unspecified muscle, fascia and tendon at wrist and hand level, right hand, initial encounter (principal)
CPT/HCPCS: 99203

== ENCOUNTER 2022-10-22 07:00 | Day surgery (SDC) | payer OTHER, SELFPAY ==
[2022-10-20 11:01] VITALS: BMI 32.8
[2022-10-22 07:13] VITALS: BP 130/88; PULSE 60; RESP 15; TEMP 36.8; O2SAT 96
[2022-10-22] MEDS: Lactated Ringers 1,000 ML 100 ML IVCONT (07:27)
--- NOTE | 2022-10-22 07:30 | P.CONAN_ITS ---
Documented by User: Omaira Cole NP 10/21/22 10:08 HPI - Anesthesia Eval Consult details Narrative: 47yo M for Upper Endoscopy and Colonoscopy [facility] Active Problems Active Problems: All Active Problems (Updated 10/20/22 @ 10:55 by Usha Ortega RN) GERD with esophagitis (Acute) Seaman's esophagus determined by biopsy (Acute) Sleep disorder, unspecified (Acute) Physical exam (Acute) Moderate obstructive sleep apnea (Acute) Allergies (Acute) S/P laparoscopic cholecystectomy (Acute) Elevated liver enzymes (Acute) Dyslipidemia (Acute) Fatigue (Acute) Tick bite (Acute) Right otitis externa (Acute) Nerve pain (Acute) Lyme disease (Acute) Post-cholecystectomy syndrome (Acute) Right upper quadrant abdominal pain (Acute) Physical exam (Acute) HTN (hypertension) (Acute) Pre-op examination (Acute) Right hand pain (Acute) Strain of right hand (Acute) Past Medical History Medical History Seaman esophagus GERD (gastroesophageal reflux disease) Hiatal hernia Hyperlipidemia Lyme disease Sleep apnea Family History Family History Father Hx of congenital heart disease Mother History of cancer Surgical History Surgical History H/O shoulder surgery Hx of cholecystectomy Hx of endoscopy Social History Social History Household Members: Family Housing: House Do you presently have visiting nurse or other home services: No Alcohol intake: current Alcohol intake frequency: holidays/special occasions only Patient Tobacco Use Status: Former Tobacco user Quit Date: 8 yrs ago Years Smoked: 15 yrs e-Cigarette/Vaping Use: Currently Using Use of substances other than those prescribed or required for medical reasons: No Are you DNR?: No Advance Directives: No Advance Directives Information Provided: Yes service: No Current occupational status: employed 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, 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 Cognitive needs: No Hearing needs: No Vision needs: No Meds Allergies Allergy/AdvReac Type Severity Reaction Status Date / Time shellfish derived Allergy itchy Verified 10/22/22 07:06 neck, itchy feet rosuvastatin AdvReac nightmares Verified 10/22/22 07:06 Exam Exam Date and Time: October 21, 2022 1008 Height,Weight and Vital Signs: Height 5 ft 9 in Weight 100.698 kg Assessment and Plan Assessment Anesthesia Assessment: Chart Reviewed Documented by User: Ghislaine Victoria DO 10/22/22 07:38 [facility] Past Medical History Medical History Seaman esophagus GERD (gastroesophageal reflux disease) Hiatal hernia Hyperlipidemia Lyme disease Sleep apnea Family History Family History Father Hx of congenital heart disease Mother History of cancer Family history of problems with anesthesia: No Surgical History Surgical History H/O shoulder surgery Hx of cholecystectomy Hx of endoscopy History of Problems with Anesthesia: No Social History Social History Household Members: Family Housing: House Do you presently have visiting nurse or other home services: No Alcohol intake: current Alcohol intake frequency: holidays/special occasions only Patient Tobacco Use Status: Former Tobacco user Quit Date: 8 yrs ago Years Smoked: 15 yrs e-Cigarette/Vaping Use: Currently Using Use of substances other than those prescribed or required for medical reasons: No Are you DNR?: No Advance Directives: No Advance Directives Information Provided: Yes service: No Current occupational status: employed 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, 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 Cognitive needs: No Hearing needs: No Vision needs: No Meds Allergies Allergy/AdvReac Type Severity Reaction Status Date / Time shellfish derived Allergy itchy Verified 10/22/22 07:06 neck, itchy feet rosuvastatin AdvReac nightmares Verified 10/22/22 07:06 Exam Exam Date and Time: October 22, 2022 0730 Height,Weight and Vital Signs: Height 5 ft 9 in Weight 100.698 kg Vital Signs Temperature 98.2 F 10/22/22 07:13 Pulse Rate 60 10/22/22 07:13 Respiratory Rate 15 10/22/22 07:13 Blood Pressure 130/88 10/22/22 07:13 Pulse Oximetry 96 10/22/22 07:13 Oxygen Delivery Method Room Air 10/22/22 07:13 Temperature 98.2 F 10/22/22 07:13 Pulse Rate 60 10/22/22 07:13 Respiratory Rate 15 10/22/22 07:13 Blood Pressure 130/88 10/22/22 07:13 Pulse Oximetry 96 10/22/22 07:13 Oxygen Delivery Method Room Air 10/22/22 07:13 Airway Mallampati Class: II TM Dist: >3cm Neck ROM: Full Loose/Missing/Broken Teeth: No Heart: S1S2 Lungs: CTAB Assessment and Plan Assessment Anesthesia Assessment: Anesthesia Plan Discussed and Chart Reviewed Final Anesthetic Review Family History of Problems with Anesthesia: No History of Problems with Anesthesia: No NPO: Yes ASA Class: II Final Preanesthetic Review: No Changes in Pt Med Stat, Meds/Allgs Chart Review ed, Consent Obtained/Reviewed and Anes Risks/Benef Reviewed Patient Risk: Low Procedure Risk: Low Anesthetic Plan Anesthetic Plan: MAC: and Agree w/ Assess. and Plan Disposition: Standard PACU
--- NOTE | 2022-10-22 07:41 | MHC.SHP ---
Pre-Procedural Eval Section A Date of Service: 10/22/22 Section B Chief Complaint: Postcholecystectomy syndrome,reflux,greco's Relevant Family History (Specify if Yes): No Relevant Social History: Other (specify) (vaping) Present Medications: see Short Stay Collaborative assessment Medical History: Significant History (Greco esophagus GERD (gastroesophageal reflux disease) Hiatal hernia Hyperlipidemia Lyme disease Sleep apnea) History of Previous Operations: Relevant previous surgery/procedure and date(s) (H/O shoulder surgery Hx of cholecystectomy Hx of endoscopy) Allergies: Allergies Allergy/AdvReac Type Severity Reaction Status Date / Time shellfish derived Allergy itchy Verified 10/22/22 07:06 neck, itchy feet rosuvastatin AdvReac nightmares Verified 10/22/22 07:06 Review of Systems Sugical H&P ROS: Negative: Constitution, Cardiovascular, Respiratory, Neurological, Psychiatric, Hem-Onc, Allergic/Immunologic, Gastrointestinal, Genitourinary, Musculoskeletal, Integumentary, Endocrine and Eyes/Ears/Nose/Throat Exam Surgical H&P Exam: Normal: HEENT, Normal: Heart, Normal: Lungs, Normal: Extremities, Normal: Abdomen, Normal: Skin and Normal: Neurological Plan Diagnosis/Plan: Unchanged I have reviewed the history and physical and performed a pertinent physical examination on my patient. No changes have occurred unless specified. Time Spent With Patient Time: Total time managing care of this patient today ____ minutes.
--- NOTE | 2022-10-22 07:42 | W.PM.OPN ---
Operative Note Operative Note Date of Service: 10/22/22 Narrative: Operative Information Procedure Description: EGD, Colonoscopy Indication: hx of barretts, and colon screening Anesthesia: MAC FLEXIBLE TRANSORAL UPPER GASTROINTESTINAL ENDOSCOPY AND COLONOSCOPY PROCEDURE NOTE UPPER ENDOSCOPY Consent: Indications for the procedure and potential complications of bleeding, perforation, reaction to medications and missed diagnosis were discussed with the patient and informed consent was obtained. Instrument: Olympus GIF H 190 J mid size upper endoscope Monitoring: Vital signs and clinical assessment, continuous EKG monitoring, Pulse oximetry, Carbon Dioxide monitoring and blood pressure monitoring were done throughout the procedure. Procedure: The patient was placed in the left lateral decubitis position and pre-procedure medications were administered and a bite block was placed. The endoscope was inserted into the mouth and advanced under direct vision to the third part of duodenum. A careful inspection was made as the upper endoscope was withdrawn including a retroflexed examination of the proximal stomach; Findings and interventions are described below. Findings: Larynx:normal Esophagus: GE junction at 39 cm, diaphragm hiatus at 42 cm, consistent with 3 cm sliding hiatal hernia, LEs was also patulous. There were few islands and tongues of short segment barretts, bx and brushings taken for WATS. Bx also taken from distal and proximal esophagus. Stomach: Normal mucosa. Grade 3 flap valve on retroflexed examination of the cardia. Duodenum: Normal bulb and descending duodenum, Intervention: Biopsies as noted above, brushings COLONOSCOPY Instrument: Olympus variable stiffness pediatric scope 190L Colonoscopy Monitoring: Vital signs and clinical assessment, continuous EKG monitoring, Pulse oximetry, Carbon Dioxide monitoring and blood pressure monitoring were done throughout the procedure. Colon withdrawal time was 13 minutes. Procedure: The patient was placed in the left lateral decubitis position and pre-procedure medications were administered. After a digital rectal examination of the ano-rectum, the video colonoscope was inserted into the rectum and advanced through the colon to the cecum/TI. The colonoscope was slowly withdrawn in a retrograde panoramic fashion and the colon mucosa was carefully examined including a retroflexed view of the rectum. Findings and interventions are described below. Procedure Difficulty:easy Findings: Terminal Ileum-normal Cecum:normal Ascending Colon: normal Transverse Colon -normal Descending Colon:normal Sigmoid Colon: 8-9 mm sessile polyp removed with cold snare Rectum: Retroflexion with small internal hemorrhoids, grade I Anorectum - normal Colon preparation: [place] Bowel Preparation Scale Right colon; 2 Transverse colon: 2 Left colon; 2 (0 = Unprepared colon segment with mucosa not seen due to solid stool that cannot be cleared. 1 = Portion of mucosa of the colon segment seen, but other areas of the colon segment not well seen due to staining, residual stool and/or opaque liquid. 2 = Minor amount of residual staining, small fragments of stool and/or opaque liquid, but mucosa of colon segment seen well. 3 = Entire mucosa of colon segment seen well with no residual staining, small fragments of stool or opaque liquid) Impression and Post Procedure Diagnosis: Endoscopy Findings: hiatal hernia barretts patulous LES Colonoscopy Findings: polyp internal hemorrhoids Plan: Await Pathology results Repeat Colonoscopy in 5-7 years if adenomatous polyp, 10 yr if hyperplastic polyp or earlier if clinically indicated High fiber diet leaflet avoid straining at stool, epsom salts and sitz bath, anusol supps or cream repeat surveillance of barretts in 3 yrs if no dysplasia Above findings were reviewed with the patient and relevant handouts were provided if indicated.
[2022-10-22 08:21] VITALS: BP 121/75; PULSE 67; RESP 17; TEMP 36.3; O2SAT 98
[2022-10-22 08:36] VITALS: BP 123/80; PULSE 70; RESP 20; TEMP 36.2; O2SAT 97
== END 2022-10-22 09:19 | disposition home or self-care (01) ==
PROVIDERS: PCP Nurse Practitioner Family; Visit Provider Internal Medicine Gastroenterology
PROC: (CPT 45385; principal; 2022-10-22 08:20)
DX: Z12.11 Encounter for screening for malignant neoplasm of colon (principal); K63.5 Polyp of colon; K44.9 Diaphragmatic hernia without obstruction or gangrene; K64.0 First degree hemorrhoids; K22.70 Barrett's esophagus without dysplasia; K22.4 Dyskinesia of esophagus; K91.5 Postcholecystectomy syndrome; K21.00 Gastro-esophageal reflux disease with esophagitis, without bleeding; R10.11 Right upper quadrant pain; E78.5 Hyperlipidemia, unspecified; Z87.891 Personal history of nicotine dependence; Z79.899 Other long term (current) drug therapy
CPT/HCPCS: 45385; 43239; 88305

== ENCOUNTER → 2022-10-22 07:00 | Outpatient (BNV) | payer OTHER, SELFPAY | PROVIDERS: PCP Nurse Practitioner Family; Visit Provider Internal Medicine Gastroenterology | DX: Z12.11 Encounter for screening for malignant neoplasm of colon (principal); K22.70 Barrett's esophagus without dysplasia; D12.5 Benign neoplasm of sigmoid colon; K64.0 First degree hemorrhoids | CPT/HCPCS: 43239; 45385 ==

== ENCOUNTER 2022-11-03 16:06 | Outpatient (AMB) | payer OTHER, SELFPAY ==
--- NOTE | 2022-11-03 16:12 | A.OFFVIS_ITS ---
Intake Vital Signs 11/03/22 16:17 Height 5 ft 9 in Weight 229 lb BMI 33.8 BP 125/77 Blood Pressure Location Lt brachial Position Sitting Pulse 81 Intake Visit Reasons: S/P double; Dr. House Allergies shellfish derived Allergy (Verified 11/03/22 16:17) itchy neck, itchy feet rosuvastatin Adverse Reaction (Verified 11/03/22 16:17) nightmares HPI S/P double; Dr. House HPI Details Assessment & Plan (1) Post-cholecystectomy syndrome: ?Code(s): K91.5 - Postcholecystectomy syndrome ?Plan: He continues to do quite well using his cholestyramine once a day.? He has found that this is all he needs to keep his diarrhea under control. I let know that he is due for repeat colonoscopy and repeat surveillance for his Seaman's esophagus.? He is quite agreeable to having these procedures scheduled at this time.? He did not tolerate traditional conscious sedation in the past and does better with propofol.? He denies any cardiac problems he has a question of sleep apnea without a confirmed diagnosis.? There are no infectious disease problems.? There is no known family history of colon cancer or polyps. Return office visit in 6 months and of course after his procedures. 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 ? ? Medications: New peg 3350-electroly akua 236-22.74-6.74 -5.86 gram (Golyt mina) ?? until feca l effluent is christel r; do not exceed a total volume of 2 ,000 mL 240 mL? PO Q10M 1 day 4,000 mL 0RF Z12.11 - Encounter for screening for malignant neoplas m of colon ? Refilled omeprazole 40 mg? PO DAILY 90 caps 1RF K21.00 - Gastro-es ophageal reflux di sease with esophag itis, without blee ding, K22.70 - Bar rett's esophagus w ithout dysplasia ? cholestyramine ( sugar) 4 gram ? ? administer w/joel l; avoid other med s within 1hr befor e or 4-6hr after d ose 4 grams? PO BID 37 8 grams 6RF K91.5 - Postcholec ystectomy? EGD/COLONOSCOPY 10/22/22 Findings: Larynx:normal Esophagus: GE junction at 39? cm, diaphragm hiatus at 42 cm, consistent with 3 cm sliding hiatal hernia, LEs was also patulous. There were few islands and tongues of short segment barretts, bx and brushings taken for WATS. Bx also taken from distal and proximal esophagus. Stomach: Normal mucosa. Grade 3 flap valve on retroflexed examination of the cardia. Duodenum: Normal bulb and descending duodenum, Findings: Terminal Ileum-normal Cecum:normal Ascending Colon: normal Transverse Colon -normal Descending Colon:normal Sigmoid Colon:? 8-9 mm sessile polyp removed with cold snare Rectum: Retroflexion with small internal hemorrhoids, grade I Anorectum - normal Impression and Post Procedure Diagnosis: Endoscopy Findings: hiatal hernia barretts patulous LES Colonoscopy Findings: polyp internal hemorrhoids Plan: Await Pathology results Repeat Colonoscopy in 5-7 years if adenomatous polyp, 10 yr if hyperplastic polyp or earlier if clinically indicated High fiber diet leaflet avoid straining at stool, epsom salts and sitz bath, anusol supps or cream repeat surveillance of barretts in 3 yrs if no dysplasia BIOPSY Received: 10/22/22 Diagnosis A.? GE junction, biopsy: - Seaman esophagus with background moderate chronic active inflammation and regenerative changes. - No dysplasia seen.. - Squamous mucosa within normal limits. B.? Esophagus, distal, biopsy:? Squamous epithelium within normal limits; no inflammation seen. C.? Esophagus, proximal, biopsy:? Squamous epithelium within normal limits; no inflammation seen. D.? Colon, sigmoid, polypectomy:? Hyperplastic mucosal polyp. TODAY'S VISIT .. The colonoscopy should be repeated in the 10 years. The procedure was well tolerated. The results were explained and the patient is agreeable to the foll ow-up interval as stated. The bowel pattern has returned to normal. Education was provided to tell any 1st degree relatives about their findings to be sure that they are screened by age 45. Educated that they will be put on a recall list when it is time for their repeat scope but should they move out of state or away from the hospital they will need to remember along with their primary to repeat the procedure in a timely fashion to avoid any adverse complications. He will need a repeat EGD in 3 years. He asks about having the HH fixed, and I advise him we usually do not endeavor this unless it is absolutely necessary given the complexity and extent of a sarai fund. Once educated, he agrees. He has occasional pain in the epigastric area just left of the distal sternum, but this is relieved with Gas X. Continues on omeprazole 40 g daily with otherwise good control of his GERD. 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 He asks about the cholestyramine saying begin ?I will take it 1 day and not have diarrhea but then suddenly the next day I will get about. ? I explained to him the pathophysiology of how this works and that it is bile sequestrant and once it has passed through the GI system it can no longer find anything that is put in behind it. He was under the false impression that when you eat something immediately comes out the other end the next day and I advised him that food usually stays in her GI system anywhere from 3-5 days depending on the person's metabolism and length of there colon. With this he understands he needs to be more regimented in taking his cholestyramine. He has been taking it once a day with good results. I think once he gets this more regimented and now that he understands this will also help with his GERD control and subsequently with his Barretts esophagus. With this he is agreeable to a 6 month follow-up. [facility] Medical History Seaman esophagus GERD (gastroesophageal reflux disease) Hiatal hernia Hyperlipidemia Lyme disease Sleep apnea Surgical History (Updated 11/03/22 @ 16:47 by TYSON Del Toro) H/O colonoscopy H/O shoulder surgery Hx of cholecystectomy Hx of endoscopy S/P laparoscopic cholecystectomy Family History Father Hx of congenital heart disease Mother History of cancer Social History Household Members: Family Housing: House Do you presently have visiting nurse or other home services: No Alcohol intake: current Alcohol intake frequency: holidays/special occasions only Patient Tobacco Use Status: Former Tobacco user Quit Date: 8 yrs ago Years Smoked: 15 yrs e-Cigarette/Vaping Use: Currently Using service: No Current occupational status: employed 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, 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 Cognitive needs: No Hearing needs: No Vision needs: No Review of Systems Const Denies fatigue, Denies fever(s), Denies night sweats, Denies poor appetite and Denies weight loss ENT Reports Normal hearing present, Denies dental pain, Denies dysphagia, Denies hearing loss, Denies mouth pain, Denies odynophagia, Denies throat swelling, Denies tongue swelling and Reports other (Dentition adequate) Card Reports no additional complaints Resp Reports no additional complaints GI Denies abdominal pain, Denies melena, Denies bloating, Denies hematochezia, Denies constipation, Denies GI cramping, Denies dysphagia, Denies excessive flatus, Denies early satiety, Reports heartburn, Reports diarrhea, Denies nausea, Denies odynophagia, Denies vomiting and Denies hematemesis Skin/Breast Denies pruritus, Denies lesions, Denies rash and Denies jaundice Neuro Reports Normal hearing present and Denies Abnormal speech present Endo Denies fatigue Aller/Immun Denies throat swelling and Denies tongue swelling Physical Exam Const General: cooperative, no acute distress, well developed and well groomed Nutritional Appearance: well nourished and overweight Orientation/consciousness: oriented to person, oriented to place and oriented to time Limitations: No language barrier HEENT Head: Yes normocephalic and Yes atraumatic Eyes General: appearance normal, both eyes and all related structures Pupils: Equal, round and reactive pupils present Neck Neck: Yes normal visual inspection and Yes no lymphadenopathy Thyroid: Thyroid normal Resp Effort & Inspection: normal respiratory effort and able to speak in complete sentences Auscultation: clear to auscultation bilaterally Cardio Rate: regular rate Rhythm: regular rhythm Heart sounds: Normal, physiologic split S2 sound present Peripheral pulses: radial pulses present and posterior tibial pulses present GI Inspection: No distended, No Abdominal panniculus present and Yes obesity Palpation (GI): Soft to palpation, nontender, no guarding, not rigid and No hepatosplenomegaly present Percussion: Yes normal to percussion Auscultation: normal bowel sounds Rectal Exam - Male: Yes deferred Skin General skin exam: no rashes or lesions noted, turgor normal, skin not dry, no jaundice, No spider nevi and no striae Rashes: no rashes Nails: normal Neuro General: oriented to person, oriented to place and oriented to time Cranial nerves: Yes Equal, round and reactive pupils present and Yes Normal hearing present Speech: No Abnormal speech present Extrem General: Yes normal to inspection, No clubbing, No cyanosis and No edema Psych Appearance: grossly normal and well kempt Mental Status: mental status grossly normal Speech and movement: Normal speech and movement present Affect: normal affect Attitude: cooperative Thought process: Normal thought process present and not confabulating Thought content: Normal thought content present Insight: Fair insight present (Psych) Judgement: Fair judgement present (Psych) Results Reviewed Results Reviewed: EGD/COLONOSCOPY 10/22/22 Findings: Larynx:normal Esophagus: GE junction at 39? cm, diaphragm hiatus at 42 cm, consistent with 3 cm sliding hiatal hernia, LEs was also patulous. There were few islands and tongues of short segment barretts, bx and brushings taken for WATS. Bx also taken from distal and proximal esophagus. Stomach: Normal mucosa. Grade 3 flap valve on retroflexed examination of the cardia. Duodenum: Normal bulb and descending duodenum, Findings: Terminal Ileum-normal Cecum:normal Ascending Colon: normal Transverse Colon -normal Descending Colon:normal Sigmoid Colon:? 8-9 mm sessile polyp removed with cold snare Rectum: Retroflexion with small internal hemorrhoids, grade I Anorectum - normal Impression and Post Procedure Diagnosis: Endoscopy Findings: hiatal hernia barretts patulous LES Colonoscopy Findings: polyp internal hemorrhoids Plan: Await Pathology results Repeat Colonoscopy in 5-7 years if adenomatous polyp, 10 yr if hyperplastic polyp or earlier if clinically indicated High fiber diet leaflet avoid straining at stool, epsom salts and sitz bath, anusol supps or cream repeat surveillance of barretts in 3 yrs if no dysplasia BIOPSY Received: 10/22/22 Diagnosis A.? GE junction, biopsy: - Seaman esophagus with background moderate chronic active inflammation and regenerative changes. - No dysplasia seen. - Squamous mucosa within normal limits. B.? Esophagus, distal, biopsy:? Squamous epithelium within normal limits; no inflammation seen. C.? Esophagus, proximal, biopsy:? Squamous epithelium within normal limits; no inflammation seen. D.? Colon, sigmoid, polypectomy:? Hyperplastic mucosal polyp. 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 The procedure was well tolerated. The results were explained and the patient is agreeable to the follow-up interval as stated. The bowel pattern has returned to normal. Education was provided to tell any 1st degree relatives about their findings to be sure that they are screened by age 45. Educated that they will be put on a recall list when it is time for their repeat scope but should they move out of state or away from the hospital they will need to remember along with their primary to repeat the procedure in a timely fashion to avoid any adverse compli cations. He will need a repeat EGD in 3 years. He asks about having the HH fixed, and I advise him we usually do not endeavor this unless it is absolutely necessary given the complexity and extent of a sarai fund. Once educated, he agrees. He has occasional pain in the epigastric area just right of the distal sternum, but this is relieved with Gas X. Continues on omeprazole 40 g daily with otherwise good control of his GERD. 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 He asks about the cholestyramine saying begin ?I will take it 1 day and not have diarrhea but then suddenly the next day I will get about. ? I explained to him the pathophysiology of how this works and that it is bile sequestrant and once it has passed through the GI system it can no longer find anything that is put in behind it. He was under the false impression that when you eat something immediately comes out the other end the next day and I advised him that food usually stays in her GI system anywhere from 3-5 days depending on the person's metabolism and length of there colon. With this he understands he needs to be more regimented in taking his cholestyramine. He has been taking it once a day with good results. I think once he gets this more regimented and now that he understands this will also help with his GERD control and subsequently with his Barretts esophagus. With this he is agreeable to a 6 month follow-up. (2) GERD with esophagitis: Code(s): K21.00 - Gastro-esophageal reflux disease with esophagitis, without bleeding (3) Post-cholecystectomy syndrome: Code(s): K91.5 - Postcholecystectomy syndrome (4) Right upper quadrant abdominal pain: Code(s): R10.11 - Right upper quadrant pain Medications: Refilled cholestyramine (with sugar) 4 gram administer w/meal; avoid other meds within 1hr before or 4-6hr after dose 4 grams PO BID 378 grams 6RF K91.5 - Postcholecystectomy syndrome omeprazole 40 mg PO DAILY 90 caps 1RF K21.00 - Gastro-esophageal reflux disease with esophagitis, without bleeding, K22.70 - Seaman's esophagus without dysplasia Coding Level of Care Code Est Pt Level 4 (74277) Diagnoses 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
[2022-11-03 16:17] VITALS: BP 125/77; PULSE 81; BMI 33.8
== END 2022-11-03 16:42 | disposition home or self-care (01) ==
PROVIDERS: PCP Nurse Practitioner Family; Visit Provider Nurse Practitioner
DX: K22.70 Barrett's esophagus without dysplasia (principal); K21.00 Gastro-esophageal reflux disease with esophagitis, without bleeding; K91.5 Postcholecystectomy syndrome; R10.11 Right upper quadrant pain
CPT/HCPCS: 99214

== ENCOUNTER → 2022-11-03 16:06 | Outpatient (BNVA) | payer OTHER, SELFPAY | PROVIDERS: PCP Nurse Practitioner Family; Visit Provider Nurse Practitioner ==

== ENCOUNTER 2023-03-11 07:28 | Outpatient (AMB) | payer OTHER, SELFPAY ==
--- NOTE | 2023-03-11 07:46 | MHC.PC.OV ---
Vital Signs 03/11/23 08:16 Weight 227 lb BP 118/80 Blood Pressure Location Rt brachial Position Sitting Pulse 66 Pulse Source Pulse Oximeter Pulse Oximetry (%) 99 Oxygen Delivery Method Room Air Intake Visit Reasons: Annual PE Allergies shellfish derived Allergy (Verified 11/03/22 16:17) itchy neck, itchy feet rosuvastatin Adverse Reaction (Verified 11/03/22 16:17) nightmares Medication List - Last Reconciled 03/11/23 by AMI Black cholestyramine (with sugar) 4 gram 4 grams PO BID ezetimibe 10 mg PO DAILY omeprazole 40 mg PO DAILY rosuvastatin 5 mg PO .twice a week 90 days Tobacco use date assessed: 03/10/22 HPI Annual PE HPI Details Pt is here for a PE. Will order labs. Colon screen is up to date. Pt is currently recovering from pneumonia. missing notes on this, reported being on doxy and amox currently, and has 2 days left of his prednisone. pt denies any fevers, sob, wheezing, N/V. Pt has a cpap for sleep apnea. Pt c/o sacral/coccyx pain. He denies any trauma to the area. Will order XR. [employer] Medical History Sleep apnea Lyme disease Hyperlipidemia Hiatal hernia GERD (gastroesophageal reflux disease) Seaman esophagus Surgical History H/O colonoscopy Hx of cholecystectomy S/P laparoscopic cholecystectomy H/O shoulder surgery Hx of endoscopy Family History Father Hx of congenital heart disease Mother History of cancer Social History Household Members: Family Housing: House Do you presently have visiting nurse or other home services: No Alcohol intake: current Alcohol intake frequency: holidays/special occasions only Comment: pt asleep Patient Tobacco Use Status: Former Tobacco user Quit Date: 8 yrs ago Years Smoked: 15 yrs e-Cigarette/Vaping Use: Currently Using service: No Current occupational status: employed 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 1. Little interest or pleasure in doing things: not at all 2. Feeling down, depressed, or hopeless: not at all 3. Trouble falling or staying asleep, or sleeping too much: not at all 4. Feeling tired or having little energy: not at all 5. Poor appetite or overeating: not at all 6. Feeling bad about yourself - or that you are a failure or have let yourself or your family down: not at all 7. Trouble concentrating on things, such as reading the newspaper or watching television: not at all 8. Moving or speaking so slowly that other people could have noticed. Or the opposite - being so fidgety or restless that you have been moving around a lot more than usual: not at all 9. Thoughts that you would be better off or of hurting yourself in some way: not at all Total score: 0 Depression Screening Interpretation: Negative Depression Screening Done: Yes 51037 - PHQ-9 Billing: Yes Source: Developed by Drs. Preet Betts, Tori Dela Cruz, Roger Alex and colleagues, with an educational stone from [employer]. Thrive Questionnaire Date Thrive assessed: 03/11/23 I am a: Patient What is your living situation today?: I have a steady place to live Within the past 12 months, did the food you bought not last and you didn't have the money to get more?: Never true Within the past 12 months, did you worry whether your food would run out before you got money to buy more?: Never true Do you have trouble paying for medicines?: No Do you have trouble getting transportation to medical appointments?: No Do you have trouble paying your heating and electricity bill?: No Do you have trouble taking care of your child, family member or friend?: No Do you have trouble with day-to-day activities such as bathing, preparing meals, shopping, managing finances, etc.?: No Are you currently unemployed and looking for a job?: No Are you interested in more education?: No ANGEL-7 AMB Questionnaire ANGEL-7 Date ANGEL - 7 assessed: 03/11/23 Feeling nervous, anxious, or on edge: 0 = Not at all Not being able to stop or control worryin = Not at all Worrying too much about different things: 0 = Not at all Trouble relaxin = Not at all Being so restless that it is hard to sit still: 0 = Not at all Becoming easily annoyed or irritable: 0 = Not at all Feeling afraid as if something awful might happen: 0 = Not at all Total ANGEL-7 score (0-4 normal; 5-9 mild; 10-14 moderate; 15-21 severe): 0 Source: Developed by Drs. Preet Betts, Tori Dela Cruz, Roger Alex and colleagues, with an educational stone from [employer]. ANGEL-7 Assessment Billing ANGEL-7 Assessment Tool: ANGEL-7 Assessment 54867 Review of Systems Const Denies chills and Denies fever(s) Eyes Denies blurry vision ENT Denies vertigo, Denies dizziness and Denies sore throat Card Denies chest pain at rest, Denies chest pain with activity, Denies diaphoresis, Denies dyspnea and Denies dyspnea on exertion Resp Denies cough, Denies dyspnea, Denies dyspnea on exertion and Denies wheezing GI Denies abdominal pain, Denies melena, Denies hematochezia, Denies constipation, Denies diarrhea and Denies loose stools Denies hematuria Musc Denies numbness and Denies tingling Skin/Breast Denies lesions Neuro Denies vertigo, Denies dizziness, Denies numbness and Denies tingling Psych Denies anxiety, Denies depression, Denies homicidal ideation, Denies suicidal ideation and Denies other (substance abuse) Aller/Immun Denies wheezing Physical exam (Primary Care) Vital Signs: Last Vital Signs Pulse 66 03/11/23 08:16 BP 118/80 03/11/23 08:16 Pulse Ox 99 03/11/23 08:16 Oxygen Delivery Method Room Air 03/11/23 08:16 Tobacco/Smoking Status: Tobacco use Status Tobacco use date assessed 03/10/22 03/11/23 07:47 Patient Tobacco Use Status Former Tobacco user 03/11/23 07:47 e-Cigarette/Vaping Use Currently Using 03/11/23 07:47 Depression Screening Interpretation: Negative Thrive Assessment: Date of Thrive Assessment Date Thrive assessed 03/10/22 03/11/23 07:47 Const General: cooperative Nutritional Appearance: well nourished Orientation/consciousness: patient oriented x3 HENMT Head: Yes normal to inspection, Yes normocephalic and Yes atraumatic Ears: TM's normal bilaterally Eyes General: appearance normal, both eyes and all related structures Alignment and Position: alignment normal and position normal Neck Neck: Yes normal visual inspection and Yes no lymphadenopathy Thyroid: Thyroid normal Resp Effort & Inspection: normal respiratory effort Auscultation: rhonchi (moving air) Cardio Rate: regular rate Rhythm: regular rhythm Heart sounds: S1 normal heart sound present, S2 normal heart sound present and no murmurs GI Palpation (GI): Soft to palpation and nontender Auscultation: normal bowel sounds Male General Exam: Yes normal external exam Penis: normal penis Scrotum: scrotum normal, testes descended bilaterally and no inguinal hernias Testes: no testicular mass Skin Other: no signs of pilondial cyst Rashes: no rashes Neuro General: patient oriented x3, moves all extremities, no focal motor deficits and deep tendon reflexes 2+ bilaterally Romberg Test: Negative Psych Appearance: grossly normal Mental Status: mental status grossly normal Speech and movement: Normal speech and movement present Affect: normal affect Attitude: cooperative Thought process: Normal thought process present Thought content: Normal thought content present Insight: Good insight present (Psych) Judgement: Good judgement present (Psych) Assessment and Plan Assessment & Plan (1) Pneumonia: Code(s): J18.9 - Pneumonia, unspecified organism Plan: Chest XR ordered (2) Encounter for routine adult physical exam with abnormal findings: Code(s): Z00.01 - Encounter for general adult medical examination with abnormal findings Plan: Labs ordered (3) Sacral pain: Code(s): M53.3 - Sacrococcygeal disorders, not elsewhere classified Plan: XR ordered Plan The patient agreed to the use of a medical billing supervisor for this encounter. Scribed for AMI Small by Khloe Moore medical billing supervisor, on 03/11/2023 at 07:45 EST. Orders: Orders Comprehensive [place]. Panel Fast Today Z00.00 - Encounter for general adult medical examination without abnormal findings TSH reflex Free T4 Today Z00.00 - Encounter for general adult medical examination without abnormal findings UA CC w/rflx Micro + Cult Today Z00.00 - Encounter for general adult medical examination without abnormal findings Lipid Panel Today Z00.00 - Encounter for general adult medical examination without abnormal findings XR sacrum coccyx min 2V Today M53.3 - Sacrococcygeal disorders, not elsewhere classified Complete Blood Count Auto Diff Today Z00.00 - Encounter for general adult medical examination without abnormal findings XR chest 2V Today J18.9 - Pneumonia, unspecified organism Coding Level of Care Code Est Pt Prev Care 40-64y(77019) Diagnoses Pneumonia J18.9 Encounter for routine adult physical exam with abnormal findings Z00.01 Sacral pain M53.3 Additional Codes ANGEL-7 Assessment Billing - ANGEL-7 Assessment Tool: ANGEL-7 Assessment 77643 ([id number])
[2023-03-11 08:16] VITALS: BP 118/80; PULSE 66; O2SAT 99
== END 2023-03-11 09:45 | disposition home or self-care (01) ==
PROVIDERS: Visit Provider Nurse Practitioner Family
DX: Z00.01 Encounter for general adult medical examination with abnormal findings (principal); J18.9 Pneumonia, unspecified organism; M53.3 Sacrococcygeal disorders, not elsewhere classified
CPT/HCPCS: 99213; 99396

== ENCOUNTER 2023-04-29 16:18 | Outpatient (REF) | payer OTHER, SELFPAY ==
--- NOTE | ~2023-04-29 | XR_ITS ---
EXAMINATION: XR SACRUM COCCYX XR CHEST CLINICAL INFORMATION: Sacrococcygeal disorders not elsewhere classified. Pneumonia unspecified organism. COMPARISON: Chest of 05/22/2020. TECHNIQUE: 2 views of the chest. 4 views of the sacrum/coccyx. FINDINGS: SACRUM/COCCYX: Degenerative changes in the imaged lower lumbar spine. Moderate degenerative changes in the bilateral sacroiliac joints. Rounded pelvic calcifications are likely vascular. Advanced degenerative changes with grade 1 anterolisthesis at the most inferior well-formed lumbar disc level with facet arthritis and possible spondylolysis should be evaluated with dedicated views of the lumbar spine and possibly MRI. CHEST: There is no gross pneumothorax. Heart size is normal. No pleural effusion. Mild retrocardiac hazy opacities, possibly representing atelectasis or pneumonia. No pleural effusion. Mild degenerative changes in thoracic spine. XR/XR sacrum coccyx min 2V IMPRESSION: 1. Mild retrocardiac hazy opacities, possibly representing atelectasis or pneumonia. 2. Advanced degenerative changes with grade 1 anterolisthesis at the most inferior well-formed lumbar disc level with facet arthritis and possible spondylolysis should be evaluated with dedicated views of the lumbar spine and possibly MRI.
--- NOTE | ~2023-04-29 | XR_ITS ---
EXAMINATION: XR SACRUM COCCYX XR CHEST CLINICAL INFORMATION: Sacrococcygeal disorders not elsewhere classified. Pneumonia unspecified organism. COMPARISON: Chest of 05/22/2020. TECHNIQUE: 2 views of the chest. 4 views of the sacrum/coccyx. FINDINGS: SACRUM/COCCYX: Degenerative changes in the imaged lower lumbar spine. Moderate degenerative changes in the bilateral sacroiliac joints. Rounded pelvic calcifications are likely vascular. Advanced degenerative changes with grade 1 anterolisthesis at the most inferior well-formed lumbar disc level with facet arthritis and possible spondylolysis should be evaluated with dedicated views of the lumbar spine and possibly MRI. CHEST: There is no gross pneumothorax. Heart size is normal. No pleural effusion. Mild retrocardiac hazy opacities, possibly representing atelectasis or pneumonia. No pleural effusion. Mild degenerative changes in thoracic spine. XR/XR chest 2V IMPRESSION: 1. Mild retrocardiac hazy opacities, possibly representing atelectasis or pneumonia. 2. Advanced degenerative changes with grade 1 anterolisthesis at the most inferior well-formed lumbar disc level with facet arthritis and possible spondylolysis should be evaluated with dedicated views of the lumbar spine and possibly MRI.
--- NOTE | ~2023-04-29 | US_ITS ---
EXAMINATION: US THYROID CLINICAL INFORMATION: Family history of malignant neoplasm of other organs or systems. COMPARISON: None available. TECHNIQUE: Linear transducer grayscale and color Doppler examination with attention to the region of the thyroid. FINDINGS: SIZE: Measurements of the thyroid lobes and nodules are given in sagittal, anteroposterior and transverse dimensions respectively. Right Thyroid Lobe: 4.2 x 1.1 x 1.5 cm, volume 3.6 mL. Parenchyma: The gland echotexture is homogeneous. Thyroid vascularity is normal. Left Thyroid Lobe: 4.1 x 1.1 x 1.3 cm, volume 3.1 mL. Parenchyma: The gland echotexture is homogeneous. Thyroid vascularity is normal. Isthmus: 0.3 cm in maximum AP dimension. Estimated total number of nodules greater than or equal to 1 cm: 0. Roll Hauler nodules are described as follows: 1. Location: Left upper pole. Size: 0.4 x 0.3 x 0.4 cm, volume 0.02 mL. Nodule characteristics: Composition: Solid (2). Echogenicity: Hypoechoic (2). Shape: Not taller than wide (0). Margins: Smooth (0). Echogenic Foci: None (0). ACR TI-RADS total points: 4. ACR TI-RADS category: 4. NODES: Right cervical 0.9 x 0.3 x 0.8 cm hypoechoic lymph node. US/US thyroid IMPRESSION: 0.4 cm left TR4 thyroid nodule. Right cervical 0.9 x 0.3 x 0.8 cm hypoechoic lymph node. ACR TI-RADS RECOMMENDATION REFERENCE: Ultrasound-guided fine-needle aspiration, followup ultrasound, no further followup. * TR1 (0 point) and TR2 (2 points): No FNA or followup. * TR3 (3 points): FNA if more than or equal to 2.5 cm in maximum dimension, followup ultrasound in 1, 3 and 5 years if 1.5 to 2.4 cm in maximum dimension. * TR4 (4-6 points): FNA if more than or equal to 1.5 cm in maximum dimension, followup ultrasound in 1, 2, 3 and 5 years if 1 to 1.4 cm in maximum dimension. * TR5 (more than or equal to 7 points): FNA if more than or equal to 1 cm in maximum dimension, followup ultrasound every year for 5 years if 0.5 to 0.9 cm in maximum dimension. * TR3, TR4 or TR5 nodules that are below the size threshold for followup receive no followup.
== END 2023-04-29 16:19 | disposition home or self-care (01) ==
LOC: HO.US 16:18
PROVIDERS: PCP Nurse Practitioner Family; Visit Provider Nurse Practitioner Family
DX: M53.3 Sacrococcygeal disorders, not elsewhere classified (principal); J18.9 Pneumonia, unspecified organism; Z80.8 Family history of malignant neoplasm of other organs or systems
CPT/HCPCS: 71046; 72220; 76536

== ENCOUNTER 2023-05-06 15:55 | Outpatient (AMB) | payer OTHER, SELFPAY ==
--- NOTE | 2023-05-06 15:59 | MHC.OFFVIS ---
Intake Vital Signs 05/06/23 16:00 Height 5 ft 9 in Weight 231 lb 7.766 oz BMI 34.2 BP 142/92 H Blood Pressure Location Lt brachial Position Sitting Pulse 63 Intake Visit Reasons: 6 month follow up Intake Note: Patient presents to in office visit today in 6 months follow up. CC: Patient reports doing well and denies having any new symptoms. He states he is taking the cholestyramine only PRN and it has been a while since last time he took it. 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 The procedure was well tolerated. The results were explained and the patient is agreeable to the follow-up interval as stated. The bowel pattern has returned to normal. Education was provided to tell any 1st degree relatives about their findings to be sure that they are screened by age 45. Educated that they will be put on a recall list when it is time for their repeat scope but should they move out of state or away from the hospital they will need to remember along with their primary to repeat the procedure in a timely fashion to avoid any adverse complications. He will need a repeat EGD in 3 years. He asks about having the HH fixed, and I advise him we usually do not endeavor this unless it is absolutely necessary given the complexity and extent of a sarai fund. Once educated, he agrees. He has occasional pain in the epigastric area just right of the distal sternum, but this is relieved with Gas X. Continues on omeprazole 40 g daily with otherwise good control of his GERD. 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 He asks about the cholestyramine saying begin ?I will take it 1 day and not have diarrhea but then suddenly the next day I will get about. ? I explained to him the pathophysiology of how this works and that it is bile sequestrant and once it has passed through the GI system it can no longer find anything that is put in behind it. He was under the false impression that when you eat something immediately comes out the other end the next day and I advised him that food usually stays in her GI system anywhere from 3-5 days depending on the person's metabolism and length of there colon. With this he understands he needs to be more regimented in taking his cholestyramine. He has been taking it once a day with good results. I think once he gets this more regimented and now that he understands this will also help with his GERD control and subsequently with his Barretts esophagus. With this he is agreeable to a 6 month follow-up. (2) GERD with esophagitis: Code(s): K21.00 - Gastro-esophageal reflux disease with esophagitis, without bleeding (3) Post-cholecystectomy syndrome: Code(s): K91.5 - Postcholecystectomy syndrome (4) Right upper quadrant abdominal pain: Code(s): R10.11 - Right upper quadrant pain Medications: Refilled cholestyramine (wi th sugar) 4 gram administer w/joel l; avoid other med s within 1hr befor e or 4-6hr after d ose 4 grams PO BID 37 8 grams 6RF K91.5 - Postcholec ystectomy syndrome omeprazole 40 mg PO DAILY 90 caps 1RF K21.00 - Gastro-es ophageal reflux di sease with esophag itis, without blee ella, K22.70 - Bar rett's esophagus w ithout dysplasia TODAY'S VISIT He continues on his omeprazole and his cholestyramine and is [id number] Gas-X. He has not had as much diarrhea recently, and is using his diarrhea less often but not consistently. His GERD remains well controlled as does his bloating. ROV 6 mos. [facility] Medical History (Updated 05/06/23 @ 16:12 by TYSON Del Toro) Abnormal x-ray of lumbar spine Lower back pain Family history of thyroid cancer Encounter for routine adult physical exam with abnormal findings Pneumonia Strain of right hand Right hand pain Pre-op examination Physical exam Right upper quadrant abdominal pain Lyme disease Nerve pain Right otitis externa Tick bite Fatigue Elevated liver enzymes Physical exam Sleep disorder, unspecified Sleep apnea Lyme disease Hyperlipidemia Hiatal hernia GERD (gastroesophageal reflux disease) Seaman esophagus Surgical History H/O colonoscopy Hx of cholecystectomy S/P laparoscopic cholecystectomy H/O shoulder surgery Hx of endoscopy Family History Father Hx of congenital heart disease Mother History of cancer Social History Household Members: Family Housing: House Do you presently have visiting nurse or other home services: No Alcohol intake: current Alcohol intake frequency: holidays/special occasions only Comment: pt asleep Patient Tobacco Use Status: Former Tobacco user Quit Date: 8 yrs ago Years Smoked: 15 yrs e-Cigarette/Vaping Use: Currently Using service: No Current occupational status: employed 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, 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 Cognitive needs: No Hearing needs: No Vision needs: No Review of Systems Const Denies fatigue, Denies fever(s), Denies night sweats, Denies poor appetite and Denies weight loss ENT Reports Normal hearing present, Denies dental pain, Denies dysphagia, Denies hearing loss, Denies mouth pain, Denies odynophagia, Denies throat swelling, Denies tongue swelling and Reports other (Dentition adequate) Card Reports no additional complaints Resp Reports no additional complaints GI Details: Denies abdominal pain, Denies melena, Denies bloating, Denies hematochezia, Denies constipation, Denies GI cramping, Denies dysphagia, Denies excessive flatus, Denies early satiety, Reports heartburn, Reports diarrhea, Denies nausea, Denies odynophagia, Denies vomiting and Denies hematemesis Skin/Breast Denies pruritus, Denies lesions, Denies rash and Denies jaundice Neuro Reports Normal hearing present and Denies Abnormal speech present Endo Denies fatigue Aller/Immun Denies throat swelling and Denies tongue swelling Physical Exam Vital Signs: Last Vital Signs Pulse 63 05/06/23 16:00 BP 142/92 H 05/06/23 16:00 BMI result Body Mass Index 34.2 Const General: cooperative, no acute distress, well developed and well groomed Nutritional Appearance: well nourished and obese Orientation/consciousness: oriented to person, oriented to place and oriented to time Limitations: No language barrier HEENT Head: Yes normocephalic and Yes atraumatic Eyes General: appearance normal, both eyes and all related structures Pupils: Equal, round and reactive pupils present Neck Neck: Yes normal visual inspection and Yes no lymphadenopathy Thyroid: Thyroid normal Resp Effort & Inspection: normal respiratory effort and able to speak in complete sentences Auscultation: clear to auscultation bilaterally Cardio Rate: regular rate Rhythm: regular rhythm Heart sounds: Normal, physiologic split S2 sound present Peripheral pulses: radial pulses present and posterior tibial pulses present GI Inspection: No distended, No Abdominal panniculus present and Yes obesity Palpation (GI): Soft to palpation, nontender, no guarding, not rigid and No hepatosplenomegaly present Percussion: Yes normal to percussion Auscultation: normal bowel sounds Rectal Exam - Male: Yes deferred Skin General skin exam: no rashes or lesions noted, turgor normal, skin not dry, no jaundice, No spider nevi and no striae Rashes: no rashes Nails: normal Neuro General: oriented to person, oriented to place and oriented to time Cranial nerves: Yes Equal, round and reactive pupils present and Yes Normal hearing present Speech: No Abnormal speech present Extrem General: Yes normal to inspection, No clubbing, No cyanosis and No edema Psych Appearance: grossly normal and well kempt Mental Status: mental status grossly normal Speech and movement: Normal speech and movement present Affect: normal affect Attitude: cooperative Thought process: Normal thought process present and not confabulating Thought content: Normal thought content present Insight: Limited insight present (Psych) Judgement: Limited judgement present (Psych) Assessment & Plan Assessment & Plan (1) GERD with esophagitis: Code(s): K21.00 - Gastro-esophageal reflux disease with esophagitis, without bleeding (2) 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 He has not had as much diarrhea recently, and is using his diarrhea less often but not consistently. His GERD remains well controlled as does his bloating. ROV 6 mos. 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
[2023-05-06 16:00] VITALS: BP 142/92; PULSE 63; BMI 34.2
== END 2023-05-06 16:17 | disposition home or self-care (01) ==
PROVIDERS: PCP Nurse Practitioner Family; Visit Provider Nurse Practitioner
DX: K21.00 Gastro-esophageal reflux disease with esophagitis, without bleeding (principal); K22.70 Barrett's esophagus without dysplasia; K91.5 Postcholecystectomy syndrome
CPT/HCPCS: 99213

== ENCOUNTER → 2023-05-06 15:55 | Outpatient (BNVA) | payer OTHER, SELFPAY | PROVIDERS: PCP Nurse Practitioner Family; Visit Provider Nurse Practitioner ==

== ENCOUNTER 2023-05-18 07:17 | Outpatient (REF) | payer OTHER, SELFPAY ==
[2023-05-18 11:12] LABS: Appearance Urine Clear; Color Urine Yellow; Glucose Urine UA Negative (Negative); Leukocyte Esterase Urine Negative (Negative); Nitrite Urine Negative (Negative); Specific Gravity - Urine <= 1.005 (1.005-1.025); Urine Blood Negative (Negative); Urine Ketones Negative (Negative); Urine Protein Negative (Neg-Trace)
[2023-05-18 11:32] LABS: MANUAL DIFF FLAG NO
[2023-05-18 11:39] LABS: Basophils Absolute Auto 0.1 X10*3/uL (0.0-0.2); Eosinophils Absolute Auto 0.1 X10*3/uL (0.0-0.4); Eosinophils Percent Auto 1.6 % (0-4); Hemoglobin 15.6 g/dl (14.0-18.0); Imm Gran Abs Auto 0.03 X10*3/uL (0.00-0.03); Imm Gran Pct Auto 0.5 % (0.0-0.4); Lymphocytes Absolute Auto 2.2 X10*3/uL (1.2-4.9); Lymphocytes Percent Auto 35.1 % (20-40); Mean Corpuscular HGB Conc 33.9 g/dl (31.0-36.0); Mean Corpuscular Volume 91.5 fL (80.0-98.0); Mean Platelet Volume 10.9 fL (9.4-12.4); Monocytes Absolute Auto 0.6 X10*3/uL (0.1-1.2); Monocytes Percent Auto 9.4 % (2-11); Neutrophils Absolute Auto 3.2 x10*3/uL (2.0-8.3); Neutrophils Percent Auto 52.4 % (45-73); Platelet Count 233 X10*3/uL (160-400); Red Blood Count 5.03 X10*6/uL (4.60-5.80); Red Cell Distribution Width 13.2 % (11.0-16.0); White Blood Count 6.2 X10*3/uL (4.8-10.8)
[2023-05-18 12:11] LABS: Alanine Aminotransferase 35 U/L (0-40); Albumin Level 4.3 g/dL (3.5-5.0); Alkaline Phosphatase 88 U/L (39-117); Anion Gap 10 (12-20); Aspartate Amino Transferase 19 U/L (5-37); Bilirubin Total 0.5 mg/dL (0.0-1.0); Blood Urea Nitrogen 15 mg/dL (9-16); Calcium 9.6 mg/dL (8.4-10.2); Carbon Dioxide 27 mmol/L (22-29); Chloride 108 mmol/L (96-108); Cholesterol 205 mg/dL (<200); Estimated Glomerular Filt Rate > 60; Glucose Fasting 100 mg/dL (60-99); HDL Cholesterol 48 mg/dL (>40); LDL Cholesterol Calculated 130 mg/dL (<100); Potassium 4.2 mmol/L (3.3-5.1); Sodium 141 mmol/L (135-145); Total Protein 7.3 g/dL (6.5-8.0); Triglycerides 135 mg/dL (<150)
== END 2023-05-18 07:18 | disposition home or self-care (01) ==
LOC: HO.WFDLDS 07:17
PROVIDERS: Visit Provider Nurse Practitioner Family
DX: Z00.00 Encounter for general adult medical examination without abnormal findings (principal); Z13.6 Encounter for screening for cardiovascular disorders
CPT/HCPCS: 36415; 80053; 80061; 81003; 84443; 85025

== ENCOUNTER 2023-05-24 17:55 | Outpatient (REF) | payer OTHER, SELFPAY ==
--- NOTE | ~2023-05-24 | MR_ITS ---
EXAMINATION: MR LUMBAR SPINE WITHOUT CONTRAST CLINICAL INFORMATION: Low back pain COMPARISON: None available. TECHNIQUE: MRI of the lumbar spine was obtained using routine sequences without contrast. FINDINGS: The visualized lumbar vertebrae are intact. No focal bone lesion with abnormal signal can be seen. Evaluation of the intervertebral discs show: T12/L1: Intervertebral disc height is normal, with normal T2 signal. No focal disc herniation is seen. Bilateral T12/L1 neuroforamina are patent. Bilateral apophyseal joints are intact with normal alignment. L-1/L-2: Intervertebral disc height is normal, with normal T2 signal. No focal disc herniation is seen. Bilateral L1-L2 neuroforamina are patent. Bilateral apophyseal joints are intact with normal alignment. L2/L3: Intervertebral disc height is normal, with normal T2 signal. No focal disc herniation is seen. Bilateral L2-L3 neuroforamina are patent. Bilateral apophyseal joints are intact with normal alignment. L3/L4: Intervertebral disc height is normal, with normal T2 signal. No focal disc herniation is seen. Bilateral L3-L4 neuroforamina are patent. Bilateral apophyseal joints are intact with normal alignment. L4/L5: Intervertebral disc height is normal, with normal T2 signal. No focal disc herniation is seen. Bilateral L4-L5 neuroforamina are patent. Bilateral apophyseal joints are intact with normal alignment. L5/S1: Anterior L5 on S1 displacement by 0.5 cm with exposure of intervertebral disc. Bilateral L5 pars interarticulares bony defects are present. Intervertebral disc height is markedly decreased, with marked loss of T2 signal. Mild posterior disc protrusion is seen. Bilateral L5-S1 neuroforamina are patent. Bilateral apophyseal joints are intact with normal alignment. Conus medullaris is seen normally at L2 level. MR/MR lumbar spine wo con IMPRESSION: 1. Grade 1 L5-S1 anterolisthesis with bilateral L5 spondylolysis. 2. Advanced L5-S1 degenerative lumbar disc disease and Mild posterior L5-S1 disc protrusion are seen. 3. No significant spinal canal or neural foraminal stenosis is seen.
== END 2023-05-24 17:56 | disposition home or self-care (01) ==
LOC: HO.MRI 17:55
PROVIDERS: PCP Nurse Practitioner Family; Visit Provider Nurse Practitioner Family
DX: M54.50 Low back pain, unspecified (principal); R93.7 Abnormal findings on diagnostic imaging of other parts of musculoskeletal system; M43.17 Spondylolisthesis, lumbosacral region; M51.37 Other intervertebral disc degeneration, lumbosacral region
CPT/HCPCS: 72148

== ENCOUNTER 2023-06-11 10:00 | Outpatient (RCR) | payer OTHER, SELFPAY | END 2023-07-01 07:43 | disposition home or self-care (01) | LOC: HO.PT 10:00 | PROVIDERS: PCP Nurse Practitioner Family; Visit Provider Orthopaedic Surgery | DX: S83.241D Other tear of medial meniscus, current injury, right knee, subsequent encounter (principal) | CPT/HCPCS: 97110; 97161 ==

== ENCOUNTER 2023-06-25 13:42 | Outpatient (AMB) | payer OTHER, SELFPAY ==
--- NOTE | 2023-06-25 13:51 | A.SPINEOV_ITS ---
Intake Visit Reasons: disc degeneration, lumbosacral region Intake Note: Mr. Curz is here today c/o sharp Tailbone pain. Supervisor Polishing Required: No Allergies shellfish derived Allergy (Verified 05/06/23 16:02) itchy neck, itchy feet rosuvastatin Adverse Reaction (Verified 05/06/23 16:02) nightmares Assessment & Plan Assessment & Plan (1) Coccyodynia: Code(s): M53.3 - Sacrococcygeal disorders, not elsewhere classified Category: Medical Plan Dear Aguila Thank you for referring Mr Cruz to our office today. He is a very nice 47-year-old gentleman who presents to the office today for evaluation of a sacrococcygeal pain that started approximately 1-2 years ago. He can not recall any specific event. The pain is right over the lower part of his sacrum, upper part of his tailbone. He does occasionally get back pain more in the traditional lumbar area but it is really not anything that is bothering him currently. Current issue is primarily only present when he sits in a neutral position for any length of time. Typically what will happen is he will start in sit in a chair and the pain will come on, he will have to shift from [id number] ultimately after few minutes and then shortly after that he will have to stand up. For the most part he spends every day in an upright standing position just to avoid having to sit. He does not have any radicular pain down the legs. He had taken Motrin for awhile for a knee issue but did not notice any change in the symptoms with the Motrin. He actually had to buy a new mattress to see if that would help and unfortunately it did not. He comes in today for evaluation with an MRI showing pars defects at L5-S1 with disc collapse at L5-S1. PMH: He is otherwise healthy, history of high cholesterol, Seaman's esophagus, rotator cuff surgery, meniscus surgery on both knees and gallbladder removal Social hx: It does not smoke Medications: Omeprazole, Zetia, rosuvastatin, calcium Allergies: Physical exam: He is awake alert oriented, normal gait, normal posture, does have tenderness over the lower sacral area. Otherwise motor exam is intact. Imaging review: He has a lumbar MRI done at [facility] showing moderate degenerative disc disease at L5-S1 with a slight anterior listhesis and pars defect at L5. There is no foraminal stenosis. Impression: This is a 47-year-old gentleman presents to the office today for evaluation of a sacrococcygeal pain that started 1-2 years ago with no specific traumatic or provocative event. It has steadily gotten worse over time. It is associated with sitting. Unfortunately he has gotten to the point now where he can almost never sit for more than a few minutes before he has to stand up. It is a midline pain, not associated with any focal back pain or radiculopathy. He has had imaging of his lower back including the areas of the sacrum in the only thing I see is a pars defect at L5 causing an anterior listhesis at L5-S1 with disc degeneration. This would be somewhat unusual as a presentation for this particular pathology seen on his MRI but obviously is not impossible that it might be contributing to it. I think the 1st thing we should do is have him see pain management and see if they can come up with some kind of injection or nerve blocks so we can accurately diagnosed where the problem is coming from. I told the patient this may take some time to figure this out sort out exactly where it is coming from. I will send him to Dr. Luo. If he deems this something that might be surgical, he can have him follow-up with us. As of right now I am not sure exactly what is causing the pain. Thank you for allowing us to care for your patient. The total time spent with this visit with this patient was 45 minutes reviewing history, physical exam, lumbar imaging review, and implementation of treatment plan or further diagnostic testing Reece Daniels MD,PhD [facility] Orders: Referrals Physiatry Referral M53.3 - Sacrococcygeal disorders, not elsewhere classified
== END 2023-06-25 14:47 | disposition home or self-care (01) ==
PROVIDERS: PCP Nurse Practitioner Family; Referring Provider Nurse Practitioner Family; Visit Provider Physician Assistant
DX: M53.3 Sacrococcygeal disorders, not elsewhere classified (principal)
CPT/HCPCS: 99204

== ENCOUNTER → 2023-06-25 13:42 | Outpatient (BNVA) | payer OTHER, SELFPAY | PROVIDERS: PCP Nurse Practitioner Family; Visit Provider Physician Assistant ==

== ENCOUNTER 2023-07-19 10:32 | Outpatient (AMB) | payer OTHER, SELFPAY ==
--- NOTE | 2023-07-19 10:36 | MHC.OFFVIS ---
Vital Signs 07/19/23 10:49 Height 5 ft 9 in Weight 232 lb BMI 34.3 BP 134/82 Blood Pressure Location Lt brachial Position Sitting Respiration 14 Pulse 71 Pulse Source Pulse Oximeter Pulse Oximetry (%) 97 Oxygen Delivery Method Room Air Intake Visit Reasons: Saccrococcygeal Disorders Allergies shellfish derived Allergy (Verified 07/19/23 10:51) itchy neck, itchy feet Medication List - Last Reconciled 07/19/23 by Carissa Ramirez LPN ezetimibe 10 mg PO DAILY omeprazole 40 mg PO DAILY rosuvastatin 5 mg PO .twice a week 90 days HPI HPI Saccrococcygeal Disorders: Details: 47-year-old male who presents today to the office for an evaluation of coccydynia. He reports coccyx pain that started approximately 1-2 years ago. He denies any inciting trauma or injury in the past. The pain is right over the lower part of his sacrum and the upper part of his tailbone. He reports occasional back pain that is not bothersome. The pain is worse when he sits in a neutral position for any length of time. The pain will start when he sits in a chair and has to shift from side to side, ultimately after a few minutes, and then shortly after that, he needs to stand up. He spends most of the day in an upright standing position just to avoid having to sit. He does not have any radicular pain in the legs. He had taken Motrin for a while for a knee issue but did not notice any change in the symptoms for his coccyx related pain. [facility] Medical History (Updated 06/25/23 @ 14:33 by SHARON Paiz) Abnormal x-ray of lumbar spine Lower back pain Family history of thyroid cancer Encounter for routine adult physical exam with abnormal findings Pneumonia Strain of right hand Right hand pain Pre-op examination Physical exam Right upper quadrant abdominal pain Lyme disease Nerve pain Right otitis externa Tick bite Fatigue Elevated liver enzymes Physical exam Sleep disorder, unspecified Sleep apnea Lyme disease Hyperlipidemia Hiatal hernia GERD (gastroesophageal reflux disease) Seaman esophagus Surgical History H/O colonoscopy Hx of cholecystectomy S/P laparoscopic cholecystectomy H/O shoulder surgery Hx of endoscopy Family History Father Hx of congenital heart disease Mother History of cancer Social History Household Members: Family Housing: House Do you presently have visiting nurse or other home services: No Alcohol intake: current Alcohol intake frequency: holidays/special occasions only Comment: pt asleep Patient Tobacco Use Status: Former Tobacco user Quit Date: 8 yrs ago Years Smoked: 15 yrs e-Cigarette/Vaping Use: Currently Using service: No Current occupational status: employed 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 Alert and oriented. Mood and affect appropriate. Follows and participates in conversation appropriately. Respiratory effort is unlabored. Able to transition from sit to stand unassisted. Ambulates with bilaterally normal heel strike and toe off. Visual inspection of the tailbone area does not reveal any superficial abnormalities. Tenderness to palpation overlying the coccyx. Results Reviewed Results Reviewed: 05/24/23: MR LUMBAR SPINE WITHOUT CONTRAST FINDINGS: The visualized lumbar vertebrae are intact. No focal bone lesion with abnormal signal can be seen. Evaluation of the intervertebral discs show: T12/L1: Intervertebral disc height is normal, with normal T2 signal. No focal disc herniation is seen. Bilateral T12/L1 neuroforamina are patent. Bilateral apophyseal joints are intact with normal alignment. L-1/L-2: Intervertebral disc height is normal, with normal T2 signal. No focal disc herniation is seen. Bilateral L1-L2 neuroforamina are patent. Bilateral apophyseal joints are intact with normal alignment. L2/L3: Intervertebral disc height is normal, with normal T2 signal. No focal disc herniation is seen. Bilateral L2-L3 neuroforamina are patent. Bilateral apophyseal joints are intact with normal alignment. L3/L4: Intervertebral disc height is normal, with normal T2 signal. No focal disc herniation is seen. Bilateral L3-L4 neuroforamina are patent. Bilateral apophyseal joints are intact with normal alignment. L4/L5: Intervertebral disc height is normal, with normal T2 signal. No focal disc herniation is seen. Bilateral L4-L5 neuroforamina are patent. Bilateral apophyseal joints are intact with normal alignment. L5/S1: Anterior L5 on S1 displacement by 0.5 cm with exposure of intervertebral disc. Bilateral L5 pars interarticulares bony defects are present. Intervertebral disc height is markedly decreased, with marked loss of T2 signal. Mild posterior disc protrusion is seen. Bilateral L5-S1 neuroforamina are patent. Bilateral apophyseal joints are intact with normal alignment. Conus medullaris is seen normally at L2 level. IMPRESSION: 1. Grade 1 L5-S1 anterolisthesis with bilateral L5 spondylolysis. 2. Advanced L5-S1 degenerative lumbar disc disease and Mild posterior L5-S1 disc protrusion are seen. 3. No significant spinal canal or neural foraminal stenosis is seen. 04/29/23: XR SACRUM COCCYX. XR CHEST FINDINGS: SACRUM/COCCYX: Degenerative changes in the imaged lower lumbar spine. Moderate degenerative changes in the bilateral sacroiliac joints. Rounded pelvic calcifications are likely vascular. Advanced degenerative changes with grade 1 anterolisthesis at the most inferior well-formed lumbar disc level with facet arthritis and possible spondylolysis should be evaluated with dedicated views of the lumbar spine and possibly MRI. CHEST: There is no gross pneumothorax. Heart size is normal. No pleural effusion. Mild retrocardiac hazy opacities, possibly representing atelectasis or pneumonia. No pleural effusion. Mild degenerative changes in thoracic spine. IMPRESSION: 1. Mild retrocardiac hazy opacities, possibly representing atelectasis or pneumonia. 2. Advanced degenerative changes with grade 1 anterolisthesis at the most inferior well-formed lumbar disc level with facet arthritis and possible spondylolysis should be evaluated with dedicated views of the lumbar spine and possibly MRI. Assessment & Plan Assessment & Plan (1) Coccyodynia: Code(s): M53.3 - Sacrococcygeal disorders, not elsewhere classified Category: Medical Plan A referral was provided to physical therapy. Advised to perform home exercises and have formal PT evaluation for coccyx pain exercises. The patient will follow up in three months. I also recommended trying coccyx pillow for better support. If these interventions are not helpful, we can consider a trial of ganglion of impar injection. Patient is in agreement with the plan. Scribed for Dr. Luo by Olaf Aguilar, medical diagnostic radiographer, on 07/19/2023. I, Dr. Luo, have personally reviewed and agree with the information entered by the scribe. Orders: Orders PT Evaluation and Treatment 07/19/23 M53.3 - Sacrococcygeal disorders, not elsewhere classified Coding Level of Care Code New Pt Level 4 (50946) Diagnoses Coccyodynia M53.3
[2023-07-19 10:49] VITALS: BP 134/82; PULSE 71; RESP 14; O2SAT 97; BMI 34.3
== END 2023-07-19 11:26 | disposition home or self-care (01) ==
PROVIDERS: PCP Nurse Practitioner Family; Referring Provider Physician Assistant; Visit Provider Internal Medicine
DX: M53.3 Sacrococcygeal disorders, not elsewhere classified (principal)
CPT/HCPCS: 99204

== ENCOUNTER → 2023-07-19 10:32 | Outpatient (BNVA) | payer OTHER, SELFPAY | PROVIDERS: PCP Nurse Practitioner Family; Referring Provider Physician Assistant; Visit Provider Internal Medicine ==

== ENCOUNTER 2023-12-27 11:09 | Outpatient (AMB) | payer OTHER, SELFPAY ==
[2023-12-27 11:10] VITALS: BP 130/82; PULSE 78; O2SAT 95; BMI 34.0
--- NOTE | 2023-12-27 11:10 | A.OFFPC_ITS ---
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: No Allergies shellfish derived Allergy (Verified 12/27/23 11:10) itchy neck, itchy feet Medication List - Last Reconciled 12/27/23 by AMI Black ezetimibe 10 mg PO DAILY omeprazole 40 mg PO DAILY rosuvastatin 5 mg PO .twice a week 90 days Tobacco use date assessed: 12/27/23 Dental Screening Dental Screen Date: 12/27/23 Did you have a dental visit in the last 12 months?: Yes Did you have a dental problem in the last 6 months where you did not have access to dental care?: No Was dental information given to patient?: Patient has dentist HPI f/up discuss weight loss medications HPI Details Pt c/o weight gain. He has been watching his diet and remaining active with no results. Will order labs. Pt also c/o shortness of breath especially with exertion. Will order echo, nuclear stress test, and BNP. Denies fever, chills, CP, TODD, and dizziness. PFSH Medical History Acute medial meniscal injury of right knee Abnormal x-ray of lumbar spine Lower back pain Family history of thyroid cancer Encounter for routine adult physical exam with abnormal findings Pneumonia Strain of right hand Right hand pain Pre-op examination Physical exam Right upper quadrant abdominal pain Lyme disease Nerve pain Right otitis externa Tick bite Fatigue Elevated liver enzymes Physical exam Sleep disorder, unspecified Sleep apnea Lyme disease Hyperlipidemia Hiatal hernia GERD (gastroesophageal reflux disease) Seaman esophagus Surgical History H/O colonoscopy Hx of cholecystectomy S/P laparoscopic cholecystectomy H/O shoulder surgery Hx of endoscopy Family History Father Hx of congenital heart disease Mother History of cancer Social History Household Members: Family Housing: House Do you presently have visiting nurse or other home services: No Alcohol intake: current Alcohol intake frequency: holidays/special occasions only Comment: pt asleep Patient Tobacco Use Status: Former Tobacco user Years Smoked: 15 yrs e-Cigarette/Vaping Use: Currently Using service: No Current occupational status: employed 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 1. Little interest or pleasure in doing things: not at all 2. Feeling down, depressed, or hopeless: not at all 3. Trouble falling or staying asleep, or sleeping too much: not at all 4. Feeling tired or having little energy: not at all 5. Poor appetite or overeating: more than half the days 6. Feeling bad about yourself - or that you are a failure or have let yourself or your family down: not at all 7. Trouble concentrating on things, such as reading the newspaper or watching television: not at all 8. Moving or speaking so slowly that other people could have noticed. Or the opposite - being so fidgety or restless that you have been moving around a lot more than usual: not at all 9. Thoughts that you would be better off or of hurting yourself in some way: not at all Total score: 2 Depression Screening Interpretation: Negative Depression Screening Done: Yes 71040 - PHQ-9 Billing: Yes Source: Developed by Drs. Preet Betts, Tori Dela Cruz, Roger Alex and colleagues, with an educational stone from [employer]. Thrive Questionnaire Date Thrive assessed: 12/27/23 I am a: Patient What is your living situation today?: I have a steady place to live Within the past 12 months, did the food you bought not last and you didn't have the money to get more?: Never true Within the past 12 months, did you worry whether your food would run out before you got money to buy more?: Never true Do you have trouble paying for medicines?: No Do you have trouble getting transportation to medical appointments?: No Do you have trouble paying your heating and electricity bill?: No Do you have trouble taking care of your child, family member or friend?: No Do you have trouble with day-to-day activities such as bathing, preparing meals, shopping, managing finances, etc.?: No Are you currently unemployed and looking for a job?: No Are you interested in more education?: No Please select the resources that you would like help with: None Currently or been in a relationship where the following occur: No concerns reported THRIVE Score: 0 AUDIT C Alcohol Use Questionnaire (AUDIT-C) 1. How often do you have a drink containing alcohol?: Monthly or less 2. How many drinks containing alcohol do you have on a typical day when you are drinking?: 1 or 2 3. How often do you have six or more drinks on one occasion?: Less than monthly Total Score: 2 Score Reviewed/Action Taken: Yes ANGEL-7 AMB Questionnaire ANGEL-7 Date ANGEL - 7 assessed: 12/27/23 Feeling nervous, anxious, or on edge: 0 = Not at all Not being able to stop or control worryin = Not at all Worrying too much about different things: 0 = Not at all Trouble relaxin = Not at all Being so restless that it is hard to sit still: 0 = Not at all Becoming easily annoyed or irritable: 0 = Not at all Feeling afraid as if something awful might happen: 1 = Several days Total ANGEL-7 score (0-4 normal; 5-9 mild; 10-14 moderate; 15-21 severe): 1 Source: Developed by Drs. Preet Betts, Tori Dela Cruz, Roger Alex and colleagues, with an educational stone from [employer]. ANGEL-7 Assessment Billing ANGEL-7 Assessment Tool: ANGEL-7 Assessment 11405 Review of Systems Const Reports as per HPI Physical exam (Primary Care) Vital Signs: Last Vital Signs Pulse 78 12/27/23 11:10 BP 130/82 12/27/23 11:10 Pulse Ox 95 12/27/23 11:10 BMI result Body Mass Index 34.0 Tobacco/Smoking Status: Tobacco use Status Tobacco use date assessed 12/27/23 12/27/23 11:16 Patient Tobacco Use Status Former Tobacco user 12/27/23 11:16 e-Cigarette/Vaping Use Currently Using 12/27/23 11:16 PHQ-9: PHQ-9 Score PHQ-9: Total score 2 12/27/23 11:16 Depression Screening Interpretation: Negative Thrive Assessment: Date of Thrive Assessment Date Thrive assessed 12/27/23 12/27/23 11:16 Currently or been in a relationship where the following occur: No concerns reported Const General: cooperative Nutritional Appearance: obese Orientation/consciousness: patient oriented x3 Resp Effort & Inspection: normal respiratory effort Auscultation: clear to auscultation bilaterally Cardio Rate: regular rate Rhythm: regular rhythm Heart sounds: S1 normal heart sound present and S2 normal heart sound present Neuro General: patient oriented x3 Psych Appearance: grossly normal Mental Status: mental status grossly normal Speech and movement: Normal speech and movement present Affect: normal affect Attitude: cooperative Thought process: Normal thought process present Thought content: Normal thought content present Insight: Good insight present (Psych) Judgement: Good judgement present (Psych) Coding Level of Care Code Est Pt Level 3 (85264) Diagnoses Weight gain R63.5 SOB (shortness of breath) R06.02 Additional Codes ANGEL-7 Assessment Billing - ANGEL-7 Assessment Tool: ANGEL-7 Assessment 05382 ([id number]) Assessment & Plan Assessment & Plan (1) Weight gain: Code(s): R63.5 - Abnormal weight gain Category: Medical Plan: labs, consider GLP-1 agonist (2) SOB (shortness of breath): Code(s): R06.02 - Shortness of breath Category: Medical Plan: chest XR, echo, labs, stress test (3) Weight gain: Code(s): R63.5 - Abnormal weight gain Category: Medical Plan: consider glp1 agonist Plan The patient agreed to the use of a medical illustrator for this encounter. Scribed for AMI Small by Khloe Moore medical illustrator, on 12/27/2023 at 11:35 EST. Orders: Orders Complete Blood Count Auto Diff Today R63.5 - Abnormal weight gain Comprehensive [place]. Panel Fast Today R63.5 - Abnormal weight gain Testosterone, Free/Total Today R63.5 - Abnormal weight gain IRON PROFILE Today R63.5 - Abnormal weight gain Tick-borne Disease Molecular Today R63.5 - Abnormal weight gain Lyme IgG/IgM w/reflex to WB Today R63.5 - Abnormal weight gain B Type Natriuretic Peptide Today R06.02 - Shortness of breath CA echo transthoracic complete Today R06.02 - Shortness of breath, R63.5 - Abnormal weight gain TSH reflex Free T4 Today R63.5 - Abnormal weight gain UA CC w/rflx Micro + Cult Today R63.5 - Abnormal weight gain Lipid Panel Today R63.5 - Abnormal weight gain Ferritin Today R63.5 - Abnormal weight gain Vitamin B12 and Folate Today R63.5 - Abnormal weight gain ADRIAN Reflex Titer and Pattern Today R63.5 - Abnormal weight gain XR chest 2V Today R06.02 - Shortness of breath NM cardiolite stress test Today R06.02 - Shortness of breath CA stress test Today R06.02 - Shortness of breath
== END 2023-12-27 12:45 | disposition home or self-care (01) ==
PROVIDERS: PCP Nurse Practitioner Family; Visit Provider Nurse Practitioner Family
DX: R63.5 Abnormal weight gain (principal); R06.02 Shortness of breath

== ENCOUNTER → 2023-12-27 11:09 | Outpatient (BNVA) | payer OTHER, SELFPAY | PROVIDERS: PCP Nurse Practitioner Family; Visit Provider Nurse Practitioner Family ==

== ENCOUNTER 2023-12-27 12:10 | Outpatient (REF) | payer OTHER, SELFPAY ==
--- NOTE | ~2023-12-27 | XR_ITS ---
EXAMINATION: XR CHEST 2 VIEWS CLINICAL INFORMATION: Shortness of breath R06.02. COMPARISON: XR Chest 04/29/2023 TECHNIQUE: 2 views of the chest were obtained. FINDINGS: No airspace consolidation. No pleural effusion or pneumothorax. Stable cardiomediastinal silhouette. Right upper quadrant surgical clips. XR/XR chest 2V IMPRESSION: No acute cardiopulmonary findings. Electronically signed by: Aashish Hyde MD 02/16/2024 12:06 PM [facility] [place]
== END 2023-12-27 12:11 | disposition home or self-care (01) ==
LOC: HO.HMGCX 12:10
PROVIDERS: PCP Nurse Practitioner Family; Visit Provider Nurse Practitioner Family
DX: R06.02 Shortness of breath (principal); R63.5 Abnormal weight gain
CPT/HCPCS: 71046; 96127

== ENCOUNTER 2023-12-28 07:30 | Outpatient (REF) | payer OTHER, SELFPAY ==
[2023-12-28 11:19] LABS: MANUAL DIFF FLAG NO
[2023-12-28 11:24] LABS: Appearance Urine Clear; Color Urine Yellow; Glucose Urine UA Negative (Negative); Leukocyte Esterase Urine Negative (Negative); Nitrite Urine Negative (Negative); PH 6.5 (5.0-9.0); Specific Gravity - Urine 1.025 (1.005-1.025); Urine Blood Negative (Negative); Urine Ketones Negative (Negative); Urine Protein Negative (Neg-Trace)
[2023-12-28 11:26] LABS: B Type Natriuretic Peptide < 10 pg/mL (<100)
[2023-12-28 11:37] LABS: Basophils Absolute Auto 0.1 X10*3/uL (0.0-0.2); Basophils Percent Auto 1.1 % (0-2); Eosinophils Absolute Auto 0.1 X10*3/uL (0.0-0.4); Eosinophils Percent Auto 1.5 % (0-4); Hematocrit 45.8 % (42.0-52.0); Hemoglobin 15.9 g/dl (14.0-18.0); Imm Gran Abs Auto 0.01 X10*3/uL (0.00-0.03); Imm Gran Pct Auto 0.2 % (0.0-0.4); Mean Corpuscular HGB Conc 34.7 g/dl (31.0-36.0); Mean Corpuscular Hemoglobin 31.4 pg (27.0-33.0); Mean Corpuscular Volume 90.5 fL (80.0-98.0); Mean Platelet Volume 10.9 fL (9.4-12.4); Monocytes Absolute Auto 0.5 X10*3/uL (0.1-1.2); Monocytes Percent Auto 10.1 % (2-11); Neutrophils Absolute Auto 2.6 x10*3/uL (2.0-8.3); Neutrophils Percent Auto 49.1 % (45-73); Platelet Count 216 X10*3/uL (160-400); Red Blood Count 5.06 X10*6/uL (4.60-5.80); Red Cell Distribution Width 12.4 % (11.0-16.0); White Blood Count 5.4 X10*3/uL (4.8-10.8)
[2023-12-28 11:48] LABS: Alanine Aminotransferase 51 U/L (0-40); Albumin Level 4.5 g/dL (3.5-5.0); Alkaline Phosphatase 94 U/L (39-117); Anion Gap 12 (12-20); Aspartate Amino Transferase 29 U/L (5-37); Bilirubin Total 0.6 mg/dL (0.0-1.0); Blood Urea Nitrogen 22 mg/dL (9-16); Calcium 9.9 mg/dL (8.4-10.2); Carbon Dioxide 25 mmol/L (22-29); Chloride 108 mmol/L (96-108); Cholesterol 167 mg/dL (<200); Estimated Glomerular Filt Rate > 60; Glucose Fasting 99 mg/dL (60-99); HDL Cholesterol 38 mg/dL (>40); Iron 119 mcg/dL (45-160); LDL Cholesterol Calculated 101 mg/dL (<100); Percent Iron Saturation 37 % (15-50); Potassium 4.1 mmol/L (3.3-5.1); Sodium 141 mmol/L (135-145); Total Iron Binding Capacity 320 mcg/dL (228-428); Total Protein 7.6 g/dL (6.5-8.0); Triglycerides 141 mg/dL (<150); Unsaturated Iron Binding 201 ug/dL
[2023-12-28 12:12] LABS: Ferritin 173 ng/mL (20-250); TSH reflex Free T4 1.24 uIU/mL (0.32-4.0)
[2023-12-28 12:20] LABS: Folate 3.5 ng/mL (> or = 4.0); Vitamin B12 336 pg/mL (200-900)
[2023-12-29 19:38] LABS: Lyme Blot 1.21 index
[2023-12-30 15:20] LABS: Lyme Abs Screen POSITIVE
[2023-12-31 00:08] LABS: A. Phagocytphilium DNA,RT-PCR NOT DETECTED (NOT DETECTED); Babesia Microti DNA, RT-PCR NOT DETECTED (NOT DETECTED); Borrelia Miyamotoi,DNA RT-PCR NOT DETECTED (NOT DETECTED); E.Chaffeensis DNA RT-PCR NOT DETECTED (NOT DETECTED); Lyme(Borrelia ssp)DNA RT-PCR NOT DETECTED (NOT DETECTED)
[2023-12-31 14:43] LABS: 18 KD (IgG) Band NON-REACTIVE; 23 KD (IgG) Band NON-REACTIVE; 23 KD (IgM) Band REACTIVE; 28 KD (IgG) Band NON-REACTIVE; 30 KD (IgG) Band NON-REACTIVE; 39 KD (IgM) Band NON-REACTIVE; 39KD (IgG) Band NON-REACTIVE; 41 KD (IgM) Band NON-REACTIVE; 41KD (IgG) Band REACTIVE; 45 KD (IgG) Band NON-REACTIVE; 58 KD (IgG) Band NON-REACTIVE; 66 KD (IgG) Band NON-REACTIVE; 93 KD (IgG) Band NON-REACTIVE; Lyme IgG Blot Interp NEGATIVE (NEGATIVE); Lyme IgM Blot Interp NEGATIVE (NEGATIVE)
[2024-01-01 15:04] LABS: Testosterone, Free 61.7 pg/mL (35.0-155.0); Testosterone, Total 274 ng/dL (250-1100)
[2024-01-03 08:43] LABS: Anti Nuclear Antibody Screen NEGATIVE (NEGATIVE)
== END 2023-12-28 07:31 | disposition home or self-care (01) ==
LOC: HO.WFDLDS 07:30
PROVIDERS: Visit Provider Nurse Practitioner Family
DX: R63.5 Abnormal weight gain (principal); R06.02 Shortness of breath; E78.5 Hyperlipidemia, unspecified
CPT/HCPCS: 36415; 80053; 80061; 81003; 82607; 82728; 82746; 83540; 83880; 84402; 84403; 84443; 85025; 86038; 86617; 86618; 87468; 87469; 87478; 87484; 87798

== ENCOUNTER → 2024-02-10 14:59 | Outpatient (REF) | payer OTHER, SELFPAY ==
--- NOTE | 2024-02-10 15:03 | CA_ITS ---
Transthoracic Echocardiogram Patient (Last, First, Middle): Nirmal Cruz T Gender: Male Date of : 1975 Age: 48 Procedure Date: 02/10/2024 Procedure Type: Transthoracic Echocardiogram Location: OP Height: 172.72 cm Weight: 99.79 kg BSA: 2.13 m2 Heart Rate: bpm BP: 122 / 84 mmHg Project Management Specialist: JESUS Referring MD: Aguila Shook [facility] Electric Freight Car Operator: Ricardo Terrazas MD Symptoms: R06.02 - Shortness of breath Study Quality: Adequate ECG Rhythm: Sinus Conclusions: - 1. Normal LV ejection fraction 60 65% 2. Mild mitral calcification with normal cardiac valvular Dopplers 3. Upper limits of normal ascending aortic size Findings Left Ventricle Normal left ventricular size, thickness, and systolic function. The visually estimated ejection fraction is between 60-65%. Spectral Doppler is indicative of a normal filling pattern. Right Ventricle Normal right ventricular cavity size and systolic function. Atria Both atria are normal in size. There is no evidence of interatrial shunt. Aortic Valve Normal aortic valve structure and function. There is no aortic valve stenosis. There is no aortic valve regurgitation. Mitral Valve There is mild anterior mitral leaflet thickening. There is mild mitral annular calcification. There is trace mitral valve regurgitation. There is no mitral valve stenosis. Pulmonic Valve The pulmonic valve is likely normal. Tricuspid Valve Likely normal tricuspid valve structure and function. Tricuspid regurgitation envelope is inadequate for calculation of right ventricular systolic pressure. Normal right atrial pressure. Great Vessels The pulmonary artery was not well visualized. There is no evidence of plaque in the aorta. Venous The inferior vena cava is normal in size and collapses greater than 50% with inspiration. Pericardium/Pleural There is no evidence of pericardial effusion. Measurements 2D Linear Measurements IVSd: 1.00 0.6-0.9/0.6-1.0 cm LVIDd: 4.65 3.9-5.3/4.2-5.9 cm LVIDd Index: 2.18 2.4-3.2/2.2-3.1 cm/m2 LVIDs: 3.21 2.0-3.6 cm LVPWd: 1.03 0.7-1.1 cm LA Diam: 3.60 2.7-3.8/3.0-4.0 cm LAIDs Index: 1.69 1.5-2.3 cm/m2 LV Mass: 205.43 67-162/88-224 g LV Mass Index: 96.45 43-95/49-115 g/m2 LVOT Diam: 2.00 3.0+(-)1.3 cm 2D Systolic Function EF 4C: 62.60 >55% EF 2C: 59.00 >55% EF BiP: 60.40 >55% Mitral Valve MV Pk E: 0.80 MV PK A: 0.82 MV Decel Time: 232.00 E/A: 1.00 E'Lateral: 9.57 E'Medial: 7.07 E/E' Med: 11.30 E/E' Lat: 8.40 PHT: 68.00 MVA PHT: 3.24 Decel Traill: 3.46 Aortic Valve AoV Pk Salomon: 1.34 AoV Mn Salomon: 0.89 AoV VTI: 0.28 AoV Pk Grad: 7.00 Aov Mn Grad: 4.00 SANDY Cont.VTI: 2.67 LVOT LVOT Pk Salomon: 1.32 LVOT Mn Salomon: 0.82 LVOT VTI: 0.24 LVOT Pk Grad: 7.00 LVOT Mn Grad: 3.00 LVOT Diam: 2.00 LVOT Area: 3.14 Diastolic Function MV Pk E: 0.80 MV Pk A: 0.82 E/A: 1.00 E'Medial: 7.07 E/E' Med: 11.30 E' Laterial: 9.57 E/E' Lat: 8.40 Right Ventricle TAPSE (mm): 18.40 TVS' Salomon: 12.00 Tricuspid Valve RA Press: 3.00 Great Vessels Aorta Sinus of Valsalva: 3.78 2.0-3.[address] Ridge: 3.41 1.7-3.4 cm Ao Asc: 3.60 2.1-3.4 cm Ao Arch: 3.00 Updated in Other Vendor System with Status of Final Ricardo Terrazas MD electronically signed on 02/11/2024 9:13:10 AM with status of Final
== END ==
LOC: HO.CARD 14:59
PROVIDERS: PCP Nurse Practitioner Family; Visit Provider Nurse Practitioner Family
DX: R06.02 Shortness of breath (principal); R63.5 Abnormal weight gain
CPT/HCPCS: 93306

== ENCOUNTER → 2024-02-10 15:03 | Outpatient (BNV) | payer OTHER, SELFPAY | PROVIDERS: PCP Nurse Practitioner Family; Visit Provider Internal Medicine Cardiovascular Disease | DX: I34.81 Nonrheumatic mitral (valve) annulus calcification (principal) | CPT/HCPCS: 93306 ==

== ENCOUNTER → 2024-03-03 08:30 | Outpatient (REF) | payer OTHER, SELFPAY ==
--- NOTE | ~2024-03-03 | NM_ITS ---
EXERCISE MYOCARDIAL PERFUSION STUDY INDICATION: Shortness of breath to evaluate for myocardial ischemia TECHNIQUE: The patient was brought in for an exercise perfusion study on 03/03/2024. Patient performed exercise as per Levy protocol and was injected 30 mCi of sestamibi once target heart rate was achieved. Images were obtained using the SPECT gamma camera interlaced with the gating device. Images were obtained in supine position. Resting perfusion study was performed on 03/06/2024. Patient was administered 30 mCi of sestamibi intravenously at rest. Images were then obtained in supine position. Images obtained without without CT attenuation. Total DLP 99 mGy-cm. Images were processed with the software and compared side to side in short axis, horizontal long axis and vertical long axis views. FINDINGS: Raw images were reviewed The stress perfusion study showed nontender images show mildly reduced uptake in the basal inferior, inferoseptal and inferolateral wall of the LV myocardium. Remainder of the LV myocardium is normally perfused. Attenuated corrected images show mildly apex of the LV myocardium. The gated study shows normal LV systolic function with calculated LVEF of 68%. LV cavity is normal in size. The gated study shows normal systolic wall thickening and contraction of segments. Resting study shows no change in perfusion pattern compared to stress perfusion study. Gating at rest reveals normal systolic wall motion with ejection fraction at 67%. The findings are consistent with normal myocardial perfusion. NM/NM cardiolite stress test IMPRESSION: 1. Myocardial perfusion imaging study shows normal myocardial perfusion. 2. Gated LVEF is 68%. 3. Transient ischemic dilatation not present. EKG revealed negative for ischemia. Electronically signed by: Ricardo Terrazas MD 03/07/2024 09:09 AM [facility]
--- NOTE | 2024-03-03 12:22 | CA_ITS ---
Acquisition Time: 2024-03-03 09:07:00 Total Exercise Time: 00:10:10 Test Indications: R06.02 - Shortness of breath Medications: Protocol: CECI Max HR: 169 BPM 97% of Pred: 174 BPM Max BP: 136/074 mmHG Max Work Load: 11.9 METS Exercise Stress Tets with exercise 10 min 10 secs of Ceci Protocol, with moderate SOB and 4/10 mid chest pressure towards the end of the exercise that resolved quickly in recovery, without any arrythmias, with normotensive response to exercise. Without EKG changes meeting criteria for ischemia. In recovery, breathing returned to baseline. Nuclear images pending. Test reviewed with Dr. Pop. Referred By: Aguila Shook Overread By: Christian Schrader
== END ==
LOC: HO.CARD 08:30
PROVIDERS: PCP Nurse Practitioner Family; Visit Provider Nurse Practitioner Family
DX: R06.02 Shortness of breath (principal); R63.5 Abnormal weight gain
CPT/HCPCS: 78452; 93017; A9500

== ENCOUNTER → 2024-03-03 12:22 | Outpatient (BNV) | payer OTHER, SELFPAY | PROVIDERS: PCP Nurse Practitioner Family | DX: R06.02 Shortness of breath (principal); R07.9 Chest pain, unspecified | CPT/HCPCS: 78452; 93016; 93018 ==

== ENCOUNTER 2024-04-05 07:33 | Outpatient (AMB) | payer OTHER, SELFPAY ==
[2024-04-05 07:40] VITALS: BP 122/82; PULSE 78; RESP 16; TEMP 37.1; O2SAT 97; BMI 33.5
--- NOTE | 2024-04-05 07:40 | A.OFFPC_ITS ---
Vital Signs 04/05/24 07:40 Height 5 ft 9 in Weight 227 lb BMI 33.5 BP 122/82 Blood Pressure Location Rt brachial Position Sitting Respiration 16 Pulse 78 Pulse Source Pulse Oximeter Temp 98.7 F Temp Source Oral Pulse Oximetry (%) 97 Oxygen Delivery Method Room Air Intake Visit Reasons: PE Intake Note: Pt is here today for his PE Allergies shellfish derived Allergy (Verified 04/05/24 08:12) itchy neck, itchy feet Medication List - Last Reconciled 04/05/24 by DRAKE Black- cholestyramine (with sugar) 4 gram 4 grams PO QIDACHS ezetimibe 10 mg PO DAILY omeprazole 40 mg PO DAILY rosuvastatin 5 mg PO .twice a week 90 days Tobacco use date assessed: 04/05/24 Dental Screening Dental Screen Date: 04/05/24 Did you have a dental visit in the last 12 months?: Yes Did you have a dental problem in the last 6 months where you did not have access to dental care?: No Was dental information given to patient?: Patient has dentist HPI PE HPI Details History of Present Illness The patient is a 48-year-old male presenting with ongoing fatigue. He reports consistently using his CPAP machine every night for his diagnosed sleep apnea. Despite this, the patient continues to experience fatigue. He recalls that he recently underwent a stress test which turned out negative, and his echocardiogram results were benign. The patient denies any symptoms such as fevers, chills, chest pain, dyspnea, melena, constipation, diarrhea, or any homicidal or suicidal ideations. He is an avid julien, which prompted an assessment for Lyme disease and other tick-borne illnesses. There were no indications discussed of any acute illness or new deterioration in his condition. Health Maintenance - Continued nightly use of CPAP machine for sleep apnea management. - Completed recent negative stress test. - Follow-up on B12 and folic acid levels . - Screening for Lyme disease due to expo sure risk from hunting activities. Social History - Avid julien, indicating regular outdoo r exposure. Review of Systems - General: Denies fever, chills. - Cardiovascular: Denies chest pain. - Respiratory: Denies shortness of breat h. - Gastrointestinal: Denies melena, const ipation, diarrhea. - Psychiatric: Denies homicidal ideation , suicidal ideation. Physical Exam General: Cooperative, healthy appearing, comfortable, no acute distress and well developed Orientation: Patient oriented x3 Limitations: No limitations Head: Normal to inspection Ears: Hearing grossly normal bilaterally Nose: Normal external nose present Face and sinus: Normal facial exam Eyes: Appearance normal, both eyes and all related structures Neck: Normal visual inspection and Yes full ROM Respiratory: Normal respiratory effort and able to speak in complete sentences. Clear to auscultation bilaterally Cardiovascular: Regular rate and rhythm. Normal S1 and S2 GI: Normal to inspection. Soft to palpation and nontender Skin: No rashes or lesions noted Neuro: Patient oriented x3 Extremities: Normal to inspection Results - Recent stress test: Negative - Echocardiogram: Normal Plan - Recheck and folic acid levels to asse ss potential nutritional deficits affecting fatigue. - Conduct Lyme disease testing due to hi s lifestyle as an avid julien. - Continue current use of CPAP machine e ach night for sleep apnea management. Patient was informed and verbally consented to the use of an ambient scribe for clinic note documentation during this visit. Discussion Notes During the visit, we discussed the patient's current fatigue and the continued utilization of the CPAP machine for managing his sleep apnea. We reviewed the recent stress test and echocardiogram results, both of which were normal. I explained that further evaluation of B12 and folic acid levels would be beneficial in ruling out nutritional causes of fatigue. Given his outdoor exposure, testing for Lyme disease and other tick-related conditions was recommended. These steps aim to narrow down the potential causes of his persistent fatigue. Patient Instructions - Continue using CPAP machine every nigh t as prescribed. - Follow up for blood tests, including B 12 and folic acid levels. - Return for Lyme disease testing. - Report any new symptoms such as fever, rash, or worsening fatigue. [facility] Medical History Fatigue Tick bite Physical exam Acute medial meniscal injury of right knee Abnormal x-ray of lumbar spine Lower back pain Family history of thyroid cancer Encounter for routine adult physical exam with abnormal findings Pneumonia Strain of right hand Right hand pain Pre-op examination Right upper quadrant abdominal pain Lyme disease Nerve pain Right otitis externa Elevated liver enzymes Physical exam Sleep disorder, unspecified Sleep apnea Lyme disease Hyperlipidemia Hiatal hernia GERD (gastroesophageal reflux disease) Seaman esophagus Surgical History H/O colonoscopy Hx of cholecystectomy S/P laparoscopic cholecystectomy H/O shoulder surgery Hx of endoscopy Family History Father Hx of congenital heart disease Mother History of cancer Social History Household Members: Family Housing: House Do you presently have visiting nurse or other home services: No Alcohol intake: current Alcohol intake frequency: holidays/special occasions only Comment: pt asleep Patient Tobacco Use Status: Former Tobacco user Years Smoked: 15 yrs e-Cigarette/Vaping Use: Former Use service: No Current occupational status: employed 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 1. Little interest or pleasure in doing things: not at all 2. Feeling down, depressed, or hopeless: not at all 3. Trouble falling or staying asleep, or sleeping too much: not at all 4. Feeling tired or having little energy: not at all 5. Poor appetite or overeating: not at all 6. Feeling bad about yourself - or that you are a failure or have let yourself or your family down: not at all 7. Trouble concentrating on things, such as reading the newspaper or watching television: not at all 8. Moving or speaking so slowly that other people could have noticed. Or the opposite - being so fidgety or restless that you have been moving around a lot more than usual: not at all 9. Thoughts that you would be better off or of hurting yourself in some way: not at all Total score: 0 Source: Developed by Drs. Preet Betts, Tori Dela Cruz, Roger Alex and colleagues, with an educational stone from [employer]. Thrive Questionnaire Date Thrive assessed: 03/29/24 I am a: Patient What is your living situation today?: I have a steady place to live Within the past 12 months, did the food you bought not last and you didn't have the money to get more?: Never true Within the past 12 months, did you worry whether your food would run out before you got money to buy more?: Never true Do you have trouble paying for medicines?: No Do you have trouble getting transportation to medical appointments?: No Do you have trouble paying your heating and electricity bill?: No Do you have trouble taking care of your child, family member or friend?: No Do you have trouble with day-to-day activities such as bathing, preparing meals, shopping, managing finances, etc.?: No Are you currently unemployed and looking for a job?: No Are you interested in more education?: No Please select the resources that you would like help with: None Currently or been in a relationship where the following occur: No concerns reported THRIVE Score: 0 AUDIT C Alcohol Use Questionnaire (AUDIT-C) 1. How often do you have a drink containing alcohol?: Monthly or less 2. How many drinks containing alcohol do you have on a typical day when you are drinking?: 3 or 4 3. How often do you have six or more drinks on one occasion?: Less than monthly Total Score: 3 ANGEL-7 AMB Questionnaire ANGEL-7 Date ANGEL - 7 assessed: 04/05/24 Feeling nervous, anxious, or on edge: 0 = Not at all Not being able to stop or control worryin = Not at all Worrying too much about different things: 0 = Not at all Trouble relaxin = Not at all Being so restless that it is hard to sit still: 0 = Not at all Becoming easily annoyed or irritable: 0 = Not at all Feeling afraid as if something awful might happen: 0 = Not at all Total ANGEL-7 score (0-4 normal; 5-9 mild; 10-14 moderate; 15-21 severe): 0 Source: Developed by Drs. Preet Betts, Tori Dela Cruz, Roger Alex and colleagues, with an educational stone from [employer]. Physical exam (Primary Care) Vital Signs: Last Vital Signs Temp 98.7 F 04/05/24 07:40 Pulse 78 04/05/24 07:40 Resp 16 04/05/24 07:40 BP 122/82 04/05/24 07:40 Pulse Ox 97 04/05/24 07:40 Oxygen Delivery Method Room Air 04/05/24 07:40 BMI result Body Mass Index 33.5 Tobacco/Smoking Status: Tobacco use Status Tobacco use date assessed 04/05/24 04/05/24 07:42 Patient Tobacco Use Status Former Tobacco user 04/05/24 07:42 e-Cigarette/Vaping Use Former Use 04/05/24 07:46 PHQ-9: PHQ-9 Score PHQ-9: Total score 0 04/05/24 07:42 Thrive Assessment: Date of Thrive Assessment Date Thrive assessed 03/29/24 04/05/24 07:42 Currently or been in a relationship where the following occur: No concerns reported Coding Level of Care Code Est Pt Prev Care 40-64y(55204) Diagnoses Physical exam Z00.00 Screening for prostate cancer Z12.5 Tick bite W57.XXXA Fatigue R53.83 Assessment & Plan Assessment & Plan (1) Physical exam: Code(s): Z00.00 - Encounter for general adult medical examination without abnormal findings Category: Medical (2) Screening for prostate cancer: Code(s): Z12.5 - Encounter for screening for malignant neoplasm of prostate Category: Medical (3) Tick bite: Code(s): W57.XXXA - Bitten or stung by nonvenomous insect and other nonvenomous arthropods, initial encounter Category: Medical (4) Fatigue: Code(s): R53.83 - Other fatigue Category: Medical Plan . Orders: Orders Comprehensive Auberry. Panel Fast Today Z00.00 - Encounter for general adult medical examination without abnormal findings Lipid Panel Today Z00.00 - Encounter for general adult medical examination without abnormal findings Prostate Specific Antigen Scr Today Z12.5 - Encounter for screening for malignant neoplasm of prostate Lyme IgG/IgM w/reflex to WB Today W57.XXXA - Bitten or stung by nonvenomous insect and other nonvenomous arthropods, initial encounter Complete Blood Count Auto Diff Today Z00.00 - Encounter for general adult medical examination without abnormal findings TSH reflex Free T4 Today Z00.00 - Encounter for general adult medical examination without abnormal findings UA CC w/rflx Micro + Cult Today Z00.00 - Encounter for general adult medical examination without abnormal findings Tick-borne Disease Molecular Today W57.XXXA - Bitten or stung by nonvenomous insect and other nonvenomous arthropods, initial encounter Vitamin B12 and Folate Today R53.83 - Other fatigue Medications: Changed From cholestyramine (with sugar) 4 gram no meds 1 hr before/4-6 hr after dose 4 grams PO QIDACHS 348.6 grams 0RF To cholestyramine (with sugar) 4 gram no meds 1 hr before/4-6 hr after dose 90 day supply 4 grams PO QIDACHS 348.6 grams 0RF
== END 2024-04-05 09:08 | disposition home or self-care (01) ==
PROVIDERS: PCP Nurse Practitioner Family; Visit Provider Nurse Practitioner Family
DX: Z00.00 Encounter for general adult medical examination without abnormal findings (principal); Z12.5 Encounter for screening for malignant neoplasm of prostate; W57.XXXA Bitten or stung by nonvenomous insect and other nonvenomous arthropods, initial encounter; R53.83 Other fatigue

== ENCOUNTER 2024-06-09 07:39 | Outpatient (REF) | payer OTHER, SELFPAY ==
[2024-06-09 11:08] LABS: Appearance Urine Clear; Color Urine Dark Yellow; Glucose Urine UA Negative (Negative); Leukocyte Esterase Urine Negative (Negative); Nitrite Urine Negative (Negative); PH 6.5 (5.0-9.0); Specific Gravity - Urine >= 1.030 (1.005-1.025); Urine Blood Negative (Negative); Urine Ketones Trace mg/dL (Negative); Urine Protein Negative (Neg-Trace)
[2024-06-09 11:12] LABS: MANUAL DIFF FLAG NO
[2024-06-09 11:30] LABS: Basophils Absolute Auto 0.1 X10*3/uL (0.0-0.2); Basophils Percent Auto 0.8 % (0-2); Eosinophils Absolute Auto 0.1 X10*3/uL (0.0-0.4); Eosinophils Percent Auto 1.2 % (0-4); Hematocrit 46.9 % (42.0-52.0); Hemoglobin 15.9 g/dl (14.0-18.0); Imm Gran Abs Auto 0.05 X10*3/uL (0.00-0.03); Imm Gran Pct Auto 0.8 % (0.0-0.4); Lymphocytes Absolute Auto 2.3 X10*3/uL (1.2-4.9); Mean Corpuscular HGB Conc 33.9 g/dl (31.0-36.0); Mean Corpuscular Hemoglobin 30.9 pg (27.0-33.0); Mean Corpuscular Volume 91.1 fL (80.0-98.0); Mean Platelet Volume 10.7 fL (9.4-12.4); Monocytes Absolute Auto 0.7 X10*3/uL (0.1-1.2); Neutrophils Absolute Auto 2.9 x10*3/uL (2.0-8.3); Neutrophils Percent Auto 48.2 % (45-73); Platelet Count 216 X10*3/uL (160-400); Red Blood Count 5.15 X10*6/uL (4.60-5.80); Red Cell Distribution Width 12.9 % (11.0-16.0)
[2024-06-09 12:35] LABS: Prostate Specific Antigen Scr 4.61 ng/mL (<0.05-4.0); Vitamin B12 464 pg/mL (200-900)
[2024-06-09 13:12] LABS: Alanine Aminotransferase 53 U/L (0-40); Albumin Level 4.4 g/dL (3.5-5.0); Alkaline Phosphatase 101 U/L (39-117); Anion Gap 9 (12-20); Aspartate Amino Transferase 27 U/L (5-37); Bilirubin Total 0.6 mg/dL (0.0-1.0); Blood Urea Nitrogen 20 mg/dL (9-16); Calcium 9.5 mg/dL (8.4-10.2); Carbon Dioxide 26 mmol/L (22-29); Chloride 111 mmol/L (96-108); Cholesterol 170 mg/dL (<200); Estimated Glomerular Filt Rate > 60; Glucose Fasting 95 mg/dL (60-99); HDL Cholesterol 37 mg/dL (>40); LDL Cholesterol Calculated 107 mg/dL (<100); Potassium 4.3 mmol/L (3.3-5.1); Sodium 142 mmol/L (135-145); TSH reflex Free T4 1.43 uIU/mL (0.32-4.0); Total Protein 7.4 g/dL (6.5-8.0); Triglycerides 132 mg/dL (<150)
[2024-06-10 14:37] LABS: A. Phagocytphilium DNA,RT-PCR NOT DETECTED (NOT DETECTED); Babesia Microti DNA, RT-PCR NOT DETECTED (NOT DETECTED); Borrelia Miyamotoi,DNA RT-PCR NOT DETECTED (NOT DETECTED); E.Chaffeensis DNA RT-PCR NOT DETECTED (NOT DETECTED); Lyme(Borrelia ssp)DNA RT-PCR NOT DETECTED (NOT DETECTED)
[2024-06-12 22:14] LABS: Lyme Blot 1.06 index
[2024-06-13 10:17] LABS: Lyme Abs Screen EQUIVOCAL
[2024-06-13 23:28] LABS: 18 KD (IgG) Band NON-REACTIVE; 23 KD (IgG) Band NON-REACTIVE; 23 KD (IgM) Band REACTIVE; 28 KD (IgG) Band NON-REACTIVE; 30 KD (IgG) Band NON-REACTIVE; 39 KD (IgM) Band NON-REACTIVE; 39KD (IgG) Band NON-REACTIVE; 41 KD (IgM) Band NON-REACTIVE; 41KD (IgG) Band REACTIVE; 45 KD (IgG) Band NON-REACTIVE; 58 KD (IgG) Band NON-REACTIVE; 66 KD (IgG) Band NON-REACTIVE; 93 KD (IgG) Band NON-REACTIVE; Lyme IgG Blot Interp NEGATIVE (NEGATIVE); Lyme IgM Blot Interp NEGATIVE (NEGATIVE)
== END 2024-06-09 07:40 | disposition home or self-care (01) ==
LOC: HO.WFDLDS 07:39
PROVIDERS: Visit Provider Nurse Practitioner Family
DX: R63.5 Abnormal weight gain (principal); W57.XXXA Bitten or stung by nonvenomous insect and other nonvenomous arthropods, initial encounter; R53.83 Other fatigue; Z12.5 Encounter for screening for malignant neoplasm of prostate; Z00.00 Encounter for general adult medical examination without abnormal findings; X58.XXXA Exposure to other specified factors, initial encounter; Y93.9 Activity, unspecified; Y92.9 Unspecified place or not applicable; Y99.9 Unspecified external cause status
CPT/HCPCS: 36415; 80053; 80061; 81003; 82607; 82746; 84153; 84443; 85025; 86617; 86618; 87468; 87469; 87478; 87484; 87798

== ENCOUNTER 2024-08-09 15:19 | Outpatient (AMB) | payer OTHER, SELFPAY ==
--- NOTE | 2024-08-09 15:27 | MHC.OFFVIS ---
Intake Visit Reasons: elevated PSA Intake Note: Patient is present for ELEVATED PSA Urology Medication:NONE Antibiotic Allergy:NONE Blood Thinner:NONE Pharmacy Intake Coordinator Required: No Allergies shellfish derived Allergy (Verified 08/09/24 15:29) itchy neck, itchy feet HPI Comments Details: Nirmal is a pleasant male. He is a patient of Dr. Jon. Here for the following urologic conditions - borderline low testosterone - elevated PSA - prostatitis Prostate on exam JESSENIA soft right base consistent with chronic prostatitis 2 weeks antibiotics Repeat lab work Borderline low T will include with repeat lab Elevated PSA PSA- 06/30 4.6 [facility] Medical History Fatigue Tick bite Physical exam Acute medial meniscal injury of right knee Abnormal x-ray of lumbar spine Lower back pain Family history of thyroid cancer Encounter for routine adult physical exam with abnormal findings Pneumonia Strain of right hand Right hand pain Pre-op examination Right upper quadrant abdominal pain Lyme disease Nerve pain Right otitis externa Elevated liver enzymes Physical exam Sleep disorder, unspecified Sleep apnea Lyme disease Hyperlipidemia Hiatal hernia GERD (gastroesophageal reflux disease) Seaman esophagus Surgical History H/O colonoscopy Hx of cholecystectomy S/P laparoscopic cholecystectomy H/O shoulder surgery Hx of endoscopy Family History Father Hx of congenital heart disease Mother History of cancer Social History Household Members: Family Housing: House Do you presently have visiting nurse or other home services: No Alcohol intake: current Alcohol intake frequency: holidays/special occasions only Comment: pt asleep Patient Tobacco Use Status: Former Tobacco user Years Smoked: 15 yrs e-Cigarette/Vaping Use: Former Use service: No Current occupational status: employed 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, 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 Cognitive needs: No Hearing needs: No Vision needs: Yes Review of Systems Const Denies chills and Denies fever(s) Card Reports no additional complaints and Denies syncope Resp Denies cough GI Denies abdominal pain and Denies heartburn Reports as per HPI and Denies change in libido Neuro Denies syncope Psych Denies change in libido Endo Denies change in libido Physical Exam Const General: cooperative, healthy appearing, comfortable and no acute distress Orientation/consciousness: patient oriented x3 HEENT Face and sinus: Yes normal facial exam Mouth: moist mucous membranes Neck Neck: Yes normal visual inspection, Yes full ROM and Yes trachea midline Chest Chest palpation & inspection: normal inspection of the chest Resp Effort & Inspection: normal respiratory effort, able to speak in complete sentences and no respiratory distress GI Inspection: Yes normal to inspection Rectal Exam - Male: Yes normal sphincter tone and Yes prostate normal Male General Exam: Yes normal external exam Penis: normal penis and circumcised Meatus: meatus normal Scrotum: scrotum normal Testes: Testes normal Back/Spine/Pelvis Cervical Spine: normal cervical lordosis Thoracic/Lumbar Spine: thoracic and lumbar spine normal to inspection Skin General skin exam: no rashes or lesions noted Neuro General: patient oriented x3, gait normal, tone normal and moves all extremities Extrem General: Yes normal to inspection and Yes capillary refill normal Assessment & Plan Assessment & Plan (1) Elevated PSA: Code(s): R97.20 - Elevated prostate specific antigen [PSA] Category: Medical (2) Prostatitis: Code(s): N41.9 - Inflammatory disease of prostate, unspecified Category: Medical (3) Low testosterone in male: Code(s): R79.89 - Other specified abnormal findings of blood chemistry Category: Medical Plan Bactrim 14 days Repeat lab work Orders: Orders Testosterone, Free/Total 2 Months R97.20 - Elevated prostate specific antigen [PSA] PSA,Total (Free>4and<10) 2 Months R97.20 - Elevated prostate specific antigen [PSA] Medications: New sulfamethoxazole-trimethoprim 800-160 mg (Bactrim DS) 1 tab PO BID 14 days 28 tabs 0RF N39.0 - Urinary tract infection, site not specified, R97.20 - Elevated prostate specific antigen [PSA] Patient Instructions: This note is constructed using voice recognition software. While every effort has been made to ensure accuracy disc recordist errors may have been included. Imaging studies, laboratory and physical exam results were discussed and reviewed in detail. No major barriers to patient understanding were identified. An opportunity to ask questions regarding the treatment plan was provided. All questions were answered. The patient expressed understanding and agreement with the above treatment plan. The patient is aware they should contact our office by phone for worsening of their current condition or the appearance of new urologic symptoms. Compliance is encouraged with any medications and followup testing that is ordered. It is a privilege to participate in the urologic care of your patient. If you have any questions or concerns regarding treatment for the above conditions, or other urologic issues, please do not hesitate to contact me. The office telephone contact is [phone]. Sincerely, Dr Kana Henderson MD, [facility] - Urology Compassionate Specialist Care for the Genitourinary System Coding Level of Care Code New Pt Level 4 (82307) Diagnoses Elevated PSA R97.20 Prostatitis N41.9 Low testosterone in male R79.89
== END 2024-08-09 16:20 | disposition home or self-care (01) ==
LOC: HO.HUSH 15:19
PROVIDERS: PCP Nurse Practitioner Family; Visit Provider Urology
DX: R97.20 Elevated prostate specific antigen [PSA] (principal); N41.9 Inflammatory disease of prostate, unspecified; R79.89 Other specified abnormal findings of blood chemistry
CPT/HCPCS: 99204

== ENCOUNTER 2024-09-27 07:54 | Outpatient (REF) | payer OTHER, SELFPAY ==
--- OUTSIDE RECORDS SUMMARY | 2024-09-27 07:57 | XMS_ITS | Clinical Summary ---
Author Organization [facility] Address [address] [place] [id number] Phone Care Team Providers Care [employer] Filler Cigar Roller Machine Name Role Phone Aguila Shook NP Primary Care Provider + Allergies No known active allergies Medications ezetimibe (ZETIA) 10 mg tablet Take 1 tablet by mouth every morning. 3 Active omeprazole (PRILOSEC) 40 MG capsule Take 1 capsule by mouth every morning. 3 Active rosuvastatin (CRESTOR) 5 MG tablet Take 5 mg by mouth 2 (two) times a week. 3 Active amoxicillin-clav ulanate (AUGMENTIN) 875-125 mg per tablet Take 1 tablet (875 mg of amoxicillin total) by mouth 2 (two) times a day. 10 tablet 3 Active doxycycline monohydrate (MONODOX) 100 MG capsule Take 1 capsule (100 mg total) by mouth 2 (two) times a day. 10 capsule 3 Active predniSONE (DELTASONE) 20 MG tablet Take 1 tablet (20 mg total) by mouth daily with breakfast. 7 tablet 3 Active Immunizations No known immunizations Social History Tobacco Use Types Packs/Day Years Used Date Smoking Tobacco: Former Cigarettes Q uit: 03/08/2012 Smokeless Tobacco: Never Tobacco Cessation:Counseling Given: Not Answered Education Answer Date Recorded Are you interested in more education? Not on steven e 03/03/2023 Are you concerned about learning? Not on file 03/03/2023 No 03/03/2023 No 03/03/2023 Digital Access Answer Date Recorded No 03/03/2023 No 03/03/2023 Reliable internet access at home? Not on file 03/03/2023 Device with a working camera? Not on file Intimate Partner Violence Answer Date R ecorded Are you denied basic needs s uch as food, clothing, or medical care? No 03/06/2023 In the past 12 months have y ou been in a relationship with a person who hurts, threatens, or tries to control you? No 03/06/2023 Are you denied basic needs s uch as food, clothing, or medical care? No 03/06/2023 In the past 12 months have y ou been in a relationship with a person who hurts, threatens, or tries to control you? No 03/06/2023 Sex and Gender Information Value Date Recorded Sex Assigned at Male 03/06/2023 10:23 AM EST Legal Sex Male 9:03 AM EST Gender Identity Male 03/06/2023 10:23 AM EST Sexual Orientation Straight 03/06/2023 10 :23 AM EST Last Filed Vital Signs Vital Sign Reading Time Taken Comments Blood Pressure 145/74 03/06/2023 3:06 PM EST Pulse 83 03/06/2023 3:06 PM EST Temperature 37.3 C (99.1 F) 03/06/2023 3:06 PM EST Respiratory Rate 20 03/06/2023 3:06 PM EST Oxygen Saturation 98% 03/06/2023 3:06 PM EST Inhaled Oxygen Concentration - - Weight 99.8 kg (220 lb) 03/06/2023 10:24 AM EST Height 172.7 cm (5' 8 ) 03/06/2023 10:24 AM EST Body Mass Index 33.45 03/06/2023 10:24 AM EST Plan of Treatment Health Maintenance Due Date Last Done Comments LIPID PANEL 1977 DEPRESSION SCREENING 1989 SMOKING Hx and SMOKELESS TOBACCO SCREENING 1990 HEPATITIS C SCREENING 10/02/1995 HIV ONE-TIME SCREENING (18-6 5 YEARS) 10/02/1995 SCREENING FOR DIABETES 2012 COLOGUARD 2022 COLONOSCOPY 2022 COLORECTAL CANCER SCREENING 2022 FIT TEST 2022 FOBT 2022 SIGMOIDOSCOPY 2022 VIRTUAL COLONOSCOPY 2022 COVID-19 VACCINE (3 - 2023-2 5 season) 2023 08/01/2020, 07/11/2020 Adult Td,Tdap Booster 06/17/2027 06/16/2017 , 04/11/2012 HEPATITIS A VACCINES Aged Out No long er eligible based on patient's age to complete this topic HIB VACCINES Aged Out No longer eligi ble based on patient's age to complete this topic MENINGOCOCCAL VACCINES (ACWY) Aged Out No longer eligible based on patient's age to complete this topic MENINGOCOCCAL VACCINES (B) Aged Out N o longer eligible based on patient's age to complete this topic PNEUMOCOCCAL VACCINES (0-49 years) Aged Out No longer eligible b ased on patient's age to complete this topic Medical Devices Not on file Insurance [employer] Care Teams [employer] C[employer] Roller Machine Relationship Specialty Start Date End Date Aguila Shook NP [address] [place] [address] PCP - General Nurse Practitioner 03/03/23 Additional Source Comments The information contained in this document represents components of the legal health record. It is not the complete legal health record.[facility]
[2024-09-27 11:42] LABS: Alanine Aminotransferase 60 U/L (0-40); Albumin Level 4.4 g/dL (3.5-5.0); Alkaline Phosphatase 99 U/L (39-117); Anion Gap 14 (12-20); Aspartate Amino Transferase 30 U/L (5-37); Blood Urea Nitrogen 12 mg/dL (9-16); Calcium 9.3 mg/dL (8.4-10.2); Carbon Dioxide 24 mmol/L (22-29); Chloride 110 mmol/L (96-108); Cholesterol 196 mg/dL (<200); Estimated Glomerular Filt Rate > 60; HDL Cholesterol 39 mg/dL (>40); Potassium 4.2 mmol/L (3.3-5.1); Sodium 144 mmol/L (135-145); Total Protein 7.1 g/dL (6.5-8.0); Triglycerides 135 mg/dL (<150)
[2024-09-27 12:02] LABS: PSA,Total (Free>4and<10) 6.81 ng/mL (0.00-4.00)
[2024-09-28 12:54] LABS: Free Prostate Spec Ag 0.6 ng/mL; Percent Free Prostate Spec Ag 11 % (calc) (>25)
== END 2024-09-27 07:55 | disposition home or self-care (01) ==
LOC: HO.WFDLDS 07:54
PROVIDERS: Nurse Practitioner Family; Visit Provider Urology
DX: Z00.00 Encounter for general adult medical examination without abnormal findings (principal); R97.20 Elevated prostate specific antigen [PSA]
CPT/HCPCS: 36415; 80053; 80061; 84153; 84154; 84402; 84403

== ENCOUNTER 2024-10-13 09:19 | Outpatient (AMB) | payer OTHER, SELFPAY ==
--- NOTE | 2024-10-13 09:19 | A.OFFVIS_ITS ---
Intake Visit Reasons: 2M LABS Intake Note: Patient is present for 2 MO FOLLOW UP Urology MedicationBACTRIM Antibiotic Allergy:NONE Blood Thinner:NONE LABS DONE : 09/27/2024 : Fr PSA :0.6,%Fr PSA 11, TOTAL PSA6.81 Blind Cleaner Required: No Allergies shellfish derived Allergy (Verified 08/09/24 15:29) itchy neck, itchy feet HPI Comments Details: Nirmal is a pleasant male. He is a patient of Dr. Jon. Here for the following urologic conditions - borderline low testosterone - elevated PSA - prostatitis 2 month follow-up PSA remains elevated Testosterone labs still pending Plan prostate MRI with office follow-up Elevated PSA PSA- 06/30 4.6, 09/29 5.3 11% [facility] Medical History Fatigue Tick bite Physical exam Acute medial meniscal injury of right knee Abnormal x-ray of lumbar spine Lower back pain Family history of thyroid cancer Encounter for routine adult physical exam with abnormal findings Pneumonia Strain of right hand Right hand pain Pre-op examination Right upper quadrant abdominal pain Lyme disease Nerve pain Right otitis externa Elevated liver enzymes Physical exam Sleep disorder, unspecified Sleep apnea Lyme disease Hyperlipidemia Hiatal hernia GERD (gastroesophageal reflux disease) Seaman esophagus Surgical History H/O colonoscopy Hx of cholecystectomy S/P laparoscopic cholecystectomy H/O shoulder surgery Hx of endoscopy Family History Father Hx of congenital heart disease Mother History of cancer Social History Household Members: Family Housing: House Do you presently have visiting nurse or other home services: No Alcohol intake: current Alcohol intake frequency: holidays/special occasions only Comment: pt asleep Patient Tobacco Use Status: Former Tobacco user Years Smoked: 15 yrs e-Cigarette/Vaping Use: Former Use service: No Current occupational status: employed 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, 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 Cognitive needs: No Hearing needs: No Vision needs: Yes Review of Systems Const All systems reviewed & are unremarkable except as noted in HPI and below Reports no additional complaints Resp Reports no additional complaints GI Reports no additional complaints Reports as per HPI Musc Reports no additional complaints Physical Exam Telemedicine evaluation Appropriate responses Regular breathing rate and rhythm HEENT Head: Yes normal to inspection Ears: hearing grossly normal bilaterally Eyes General: appearance normal, both eyes and all related structures Neck Neck: Yes normal visual inspection Chest Chest palpation & inspection: normal inspection of the chest Resp Effort & Inspection: normal respiratory effort and able to speak in complete sentences Telehealth Telehealth Telehealth Platform: [employer] Location of provider rendering services: practice address Location of patient: address on file Patient Identification confirmed using: Name, : Yes Telehealth method: video Patient verbally consented to treatment: Yes Patient verbally consented to billing insurance company: Yes Patient informed of any privacy concerns related to visit: Yes Minutes spent on Phone/Video with Pt.: 15 Assessment & Plan Assessment & Plan (1) Elevated PSA: Code(s): R97.20 - Elevated prostate specific antigen [PSA] Category: Medical (2) Prostatitis: Code(s): N41.9 - Inflammatory disease of prostate, unspecified Category: Medical (3) Low testosterone in male: Code(s): R79.89 - Other specified abnormal findings of blood chemistry Category: Medical Plan Prostate MRI Four week follow-up office Orders: Orders MR Prostate wo/w con Today R97.20 - Elevated prostate specific antigen [PSA] Testosterone, Free/Total Today R68.82 - Decreased libido, R79.89 - Other specified abnormal findings of blood chemistry Patient Instructions: This note is constructed using voice recognition software. While every effort has been made to ensure accuracy meter and service line inspector errors may have been included. Imaging studies, laboratory and physical exam results were discussed and reviewed in detail. No major barriers to patient understanding were identified. An opportunity to ask questions regarding the treatment plan was provided. All questions were answered. The patient expressed understanding and agreement with the above treatment plan. The patient is aware they should contact our office by phone for worsening of their current condition or the appearance of new urologic symptoms. Compliance is encouraged with any medications and followup testing that is ordered. It is a privilege to participate in the urologic care of your patient. If you have any questions or concerns regarding treatment for the above conditions, or other urologic issues, please do not hesitate to contact me. The office telephone contact is [phone]. Sincerely, Dr Kana Henderson MD, HEIDI [facility] - Urology Compassionate Specialist Care for the Genitourinary System Coding Level of Care Code Tele Est Pt Level 3 (80850) Diagnoses Elevated PSA R97.20 Prostatitis N41.9 Low testosterone in male R79.89
== END 2024-10-13 09:49 | disposition home or self-care (01) ==
LOC: HO.HUSH 09:19
PROVIDERS: PCP Nurse Practitioner Family; Visit Provider Urology
DX: R97.20 Elevated prostate specific antigen [PSA] (principal); N41.9 Inflammatory disease of prostate, unspecified; R79.89 Other specified abnormal findings of blood chemistry
CPT/HCPCS: 99213

== ENCOUNTER 2024-10-17 09:57 | Outpatient (REF) | payer OTHER, SELFPAY ==
--- OUTSIDE RECORDS SUMMARY | 2024-10-17 10:50 | XMS_ITS | Clinical Summary ---
Author Organization [facility] Address [address] [place] [id number] Phone Care Team Providers Care Brand Director Name Role Phone Aguila Shook NP Primary [...] topic Medical Devices Not on file Insurance [employer] BENEFITS ADMINISTRATORS [employer] BENEFITS ADMINISTRATORS [employer] BENEFITS ADMINISTRATORS [employer] BENEFITS ADMINISTRATORS [employer] BENEFITS ADMINISTRATORS [employer] BENEFITS ADMINISTRATORS Care Teams Brand Director Relationship Specialty Start Date End Date Aguila Shook NP [facility] [place] [address] PCP - General Nurse Practitioner 03/03/23 Additional Source Comments The information contained in this document represents components of the legal health record. It is not the complete legal health record.[facility]
== END 2024-10-17 09:58 | disposition home or self-care (01) ==
LOC: HO.WFDLDS 09:57
PROVIDERS: Visit Provider Urology
DX: R68.82 Decreased libido (principal); R79.89 Other specified abnormal findings of blood chemistry
CPT/HCPCS: 36415; 84402; 84403

== ENCOUNTER 2024-11-08 07:35 | Outpatient (REF) | payer OTHER, SELFPAY ==
--- OUTSIDE RECORDS SUMMARY | 2024-11-08 07:39 | XMS_ITS | Clinical Summary ---
Author Organization [facility] Address [address] [place] [phone] Phone Care Team Providers Care Yarn Salvager Name Role Phone Aguila Shook NP Primary [...] topic Medical Devices Not on file Insurance [employer] BENEFITS ADMINISTRATORS [employer] BENEFITS ADMINISTRATORS [employer] BENEFITS ADMINISTRATORS [employer] BENEFITS ADMINISTRATORS [employer] BENEFITS ADMINISTRATORS [employer]MIN[employer]ATORS Care Teams Yarn Salvager Relationship Specialty Start Date End Date Aguila Shook NP [facility] [address] PCP - General Nurse Practitioner 03/03/23 Additional Source Comments The information contained in this document represents components of the legal health record. It is not the complete legal health record.[facility]
[2024-11-12 17:34] LABS: Testosterone, Free 76.0 pg/mL (35.0-155.0)
== END 2024-11-08 07:36 | disposition home or self-care (01) ==
LOC: HO.WFDLDS 07:35
PROVIDERS: Visit Provider Urology
DX: R79.89 Other specified abnormal findings of blood chemistry (principal)
CPT/HCPCS: 36415; 84402; 84403

== ENCOUNTER → 2024-11-27 09:08 | Outpatient (BNV) | payer OTHER, SELFPAY | PROVIDERS: PCP Nurse Practitioner Family; Visit Provider Radiology Diagnostic Radiology | DX: R97.20 Elevated prostate specific antigen [PSA] (principal) | CPT/HCPCS: 72197; 76377 ==

== ENCOUNTER 2024-11-27 09:09 | Outpatient (REF) | payer OTHER, SELFPAY ==
--- NOTE | ~2024-11-27 | MR_ITS ---
EXAMINATION: MR PROSTATE WITHOUT THEN WITH IV CONTRAST, MR EXAM UNLISTED HISTORY: R97.20 - Elevated prostate specific antigen [PSA] TECHNIQUE: 1.5T body coil survey of the pelvis was performed. Phase array coil imaging of the prostate was performed in multiplanar high resolution axial, coronal, sagittal fast spin echo T2 and axial T1 weighted imaging sequences. Axial diffusion imaging at intermediate and high field performed with ADC mapping. Next, 10 mL Gadavist was given by intravenous infusion, and dynamic axial imaging performed. 3-D reconstructions and post-processing were performed on an independent workstation by the radiologist for biopsy planning using image fusion. COMPARISON: There are no prior studies available for comparison. CLINICAL DATA: Most recent PSA: 6.81 ng/mL on 09/27/2024. PSA Density: 0.25 ng/mL squared Prostate Biopsy: None reported FINDINGS: Prostate size: 4.1 x 4.0 x 3.2 cm. Calculated prostate volume is 27.3 mL. Hemorrhage: None. Transitional Zone: There is mild heterogeneous nodular hypertrophy of the transitional zone. Peripheral Zone: There are multiple areas of interest in the peripheral zone as described below: Area of interest #1: Location: Right anterior peripheral zone at the base measuring 1.2 cm (series 7, images 21-23). DWI PI-RADS v2.1 score: 4 T2 PI-RADS v2.1 score: 4 DCE PI-RADS v2.1 score: - Overall PI-RADS v2.1 score: 4 Capsular contact: yes Extracapsular extension: None Seminal vesicle invasion: None Neurovascular bundle involvement: None Area of interest #2: Location: Right posterior peripheral zone in the mid gland measuring 10 mm (series 7, images 23-24). DWI PI-RADS v2.1 score: 3 T2 PI-RADS v2.1 score: 4 DCE PI-RADS v2.1 score: - Overall PI-RADS v2.1 score: 3 Capsular contact: yes Extracapsular extension: None Seminal vesicle invasion: None Neurovascular bundle involvement: None Area of interest #3: Location: Left anterior peripheral zone in the mid gland/base (series 7, images 22-24). DWI PI-RADS v2.1 score: 4 T2 PI-RADS v2.1 score: 4 DCE PI-RADS v2.1 score: - Overall PI-RADS v2.1 score: 4 Capsular contact: yes Extracapsular extension: None Seminal vesicle invasion: None Neurovascular bundle involvement: None Seminal Vesicles/Ejaculatory Ducts: Symmetric and normal in signal and caliber. Pelvic Lymph Nodes: No obturator or internal iliac lymph nodes meeting size criteria for adenopathy. Marrow Signal: Normal marrow signal and enhancement without focal lesion identified. MR/MR Prostate wo/w con IMPRESSION: Multiple areas of interest are noted in the peripheral zones bilaterally, suspicious for clinically significant prostate carcinoma. PI-RADS 4: High (clinically significant cancer is likely to be present) PI-RADS Assessment Categories PI-RADS 1: Very low (clinically significant cancer is highly unlikely to be present) PI-RADS 2: Low (clinically significant cancer is unlikely to be present) PI-RADS 3: Intermediate (the presence of clinically significant cancer is equivocal) PI-RADS 4: High (clinically significant cancer is likely to be present) PI-RADS 5: Very high (clinically significant cancer is highly likely to be present) [employer]. MR Prostate Imaging Reporting and Data System version 2.1. [email or web address] Electronically signed by: Preet Cagle MD 11/27/2024 10:45 AM EDT
--- OUTSIDE RECORDS SUMMARY | 2024-11-27 10:45 | XMS_ITS | Clinical Summary ---
Author Organization [facility] Address [address] [place] [phone] Phone Care Team Providers Care Associate Consulting Engineer Name Role Phone Aguila Shook NP Primary [...] FOBT 2022 SIGMOIDOSCOPY 2022 VIRTUAL COLONOSCOPY 2022 INFLUENZA VACCINE (#1) 2024 12/14/2017 COVID-19 VACCINE (2024-2 6 season) 2024 08/01/2020, 07/11/2020 Adult Td,Tdap Booster 06/17/2027 06/16/2017 [...] topic Medical Devices Not on file Insurance [employer] BENEFITS ADMINISTRATORS [employer] BENEFITS ADMINISTRATORS [employer] BENEFITS ADMINISTRATORS [employer] BENEFITS ADMINISTRATORS [employer] BENEFITS ADMINISTRATORS [facility] BENEFITS ADMINISTRATORS Care Teams Associate Consulting Engineer Relationship Specialty Start Date End Date Aguila Shook NP [address] [facility] [address] PCP - General Nurse Practitioner 03/03/23 Additional Source Comments The information contained in this document represents components of the legal health record. It is not the complete legal health record.[facility]
== END 2024-11-27 09:10 | disposition home or self-care (01) ==
LOC: HO.MRI 09:09
PROVIDERS: PCP Nurse Practitioner Family; Visit Provider Urology
DX: R97.20 Elevated prostate specific antigen [PSA] (principal)
CPT/HCPCS: 72197; 76377; A9585

== ENCOUNTER 2024-11-28 15:43 | Outpatient (AMB) | payer OTHER, SELFPAY ==
--- NOTE | 2024-11-28 15:46 | MHC.OFFVIS ---
Intake Visit Reasons: MRI follow up Intake Note: Patient is present for FOLLOW UP Urology Medication: none Antibiotic Allergy:NONE Blood Thinner:NONE LABS DONE : 11/27/24: Fr Testosterone 76.0 , Total testosterone : 314 Imaging : MRI done 11/27/24 Injection Molding Machine Tender Required: No Accompanied by: Spouse Allergies shellfish derived Allergy (Verified 08/09/24 15:29) itchy neck, itchy feet HPI Comments Details: Nirmal is a pleasant male. He is a patient of Dr. oJn. Here for the following urologic conditions - borderline low testosterone - elevated PSA - prostatitis Prostate MRI PI-RADS 4 - 3 lesions Right anterior peripheral zone base 1.2 cm PI-RADS 4 Right posterior peripheral zone mid 10 mm PI-RADS 4 Left anterior peripheral zone mid 7 mm 30 g prostate Recommend prostate biopsy Positive predictive value approximately 85% Testosterone has normal free with borderline low total Elevated PSA PSA- 06/30 4.6, 09/29 5.3 11% Labs - Testosterone 12/29 275 FT 61, 11/30 314 FT 76 PFSH Medical History Fatigue Tick bite Physical exam Acute medial meniscal injury of right knee Abnormal x-ray of lumbar spine Lower back pain Family history of thyroid cancer Encounter for routine adult physical exam with abnormal findings Pneumonia Strain of right hand Right hand pain Pre-op examination Right upper quadrant abdominal pain Lyme disease Nerve pain Right otitis externa Elevated liver enzymes Physical exam Sleep disorder, unspecified Sleep apnea Lyme disease Hyperlipidemia Hiatal hernia GERD (gastroesophageal reflux disease) Seaman esophagus Surgical History H/O colonoscopy Hx of cholecystectomy S/P laparoscopic cholecystectomy H/O shoulder surgery Hx of endoscopy Family History Father Hx of congenital heart disease Mother History of cancer Social History Household Members: Family Housing: House Do you presently have visiting nurse or other home services: No Alcohol intake: current Alcohol intake frequency: holidays/special occasions only Comment: pt asleep Patient Tobacco Use Status: Former Tobacco user Years Smoked: 15 yrs e-Cigarette/Vaping Use: Former Use service: No Current occupational status: employed 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, 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 Cognitive needs: No Hearing needs: No Vision needs: Yes Review of Systems Const Denies chills and Denies fever(s) Card Reports no additional complaints and Denies syncope Resp Denies cough GI Denies abdominal pain and Denies heartburn Reports as per HPI and Denies change in libido Neuro Denies syncope Psych Denies change in libido Endo Denies change in libido Physical Exam Const General: cooperative, healthy appearing, comfortable and no acute distress Orientation/consciousness: patient oriented x3 HEENT Face and sinus: Yes normal facial exam Mouth: moist mucous membranes Neck Neck: Yes normal visual inspection, Yes full ROM and Yes trachea midline Chest Chest palpation & inspection: normal inspection of the chest Resp Effort & Inspection: normal respiratory effort, able to speak in complete sentences and no respiratory distress GI Inspection: Yes normal to inspection Back/Spine/Pelvis Cervical Spine: normal cervical lordosis Thoracic/Lumbar Spine: thoracic and lumbar spine normal to inspection Skin General skin exam: no rashes or lesions noted Neuro General: patient oriented x3, gait normal, tone normal and moves all extremities Extrem General: Yes normal to inspection and Yes capillary refill normal Assessment & Plan Assessment & Plan (1) Prostatitis: Code(s): N41.9 - Inflammatory disease of prostate, unspecified Category: Medical (2) Elevated PSA: Code(s): R97.20 - Elevated prostate specific antigen [PSA] Category: Medical Plan Risks and benefits regarding trans rectal ultrasound with prostate biopsy were discussed. Options of continued surveillance, no treatment and biopsy were offered. The risks include but are not limited to, urinary tract infection, sepsis, difficulty urinating, bleeding into the rectum or bladder that requires intervention and transfusion,and failure to diagnose prostate cancer. The patient understands the options and the risks involved. They wish to proceed. Printed information was provided to ensure he remains off anticoagulation for the appropriate length of time. He may require cardiology or PCP clearance. An antibiotic will be administered prior to, and following the procedure Medications: New levofloxacin take 1 tablet day before procedure, 1 tablet day of procedure and 1 tablet day after procedure 500 mg PO DAILY 3 tabs 0RF 3 days R97.20 - Elevated prostate specific antigen [PSA] diazepam Take medication after arrival at office 2 mg PO BID PRN 2 tabs 0RF anxiety 1 day R45.89 - Other symptoms and signs involving emotional state, R97.20 - Elevated prostate specific antigen [PSA] Patient Instructions: This note is constructed using voice recognition software. While every effort has been made to ensure accuracy production support developer errors may have been included. Imaging studies, laboratory and physical exam results were discussed and reviewed in detail. No major barriers to patient understanding were identified. An opportunity to ask questions regarding the treatment plan was provided. All questions were answered. The patient expressed understanding and agreement with the above treatment plan. The patient is aware they should contact our office by phone for worsening of their current condition or the appearance of new urologic symptoms. Compliance is encouraged with any medications and followup testing that is ordered. It is a privilege to participate in the urologic care of your patient. If you have any questions or concerns regarding treatment for the above conditions, or other urologic issues, please do not hesitate to contact me. The office telephone contact is [phone]. Sincerely, Dr Kana Henderson MD, HEID[facility] - Urology Compassionate Specialist Care for the Genitourinary System Coding Level of Care Code Est Pt Level 4 (08187) Diagnoses Prostatitis N41.9 Elevated PSA R97.20
--- OUTSIDE RECORDS SUMMARY | 2024-11-28 18:26 | XMS_ITS | Clinical Summary ---
Author Organization [facility] Address [address] [place] [phone] Phone Care Team Providers Care Airborne And Air Delivery Specialist Name Role Phone Aguila Shook NP Primary [...] topic Medical Devices Not on file Insurance [employer] BENEFITS ADMINISTRATORS [employer] BENEFITS ADMINISTRATORS [employer] BENEFITS ADMINISTRATORS [employer] BENEFITS ADMINISTRATORS [employer] BENEFITS ADMINISTRATORS [facility] BENEFITS ADMINISTRATORS Care Teams Airborne And Air Delivery Specialist Relationship Specialty Start Date End Date Aguila Shook NP [address] [place] [address] PCP - General Nurse Practitioner 03/03/23 Additional Source Comments The information contained in this document represents components of the legal health record. It is not the complete legal health record.[facility]
== END 2024-11-28 16:25 | disposition home or self-care (01) ==
LOC: HO.HUSH 15:44
PROVIDERS: PCP Nurse Practitioner Family; Visit Provider Urology
DX: N41.9 Inflammatory disease of prostate, unspecified (principal); R97.20 Elevated prostate specific antigen [PSA]
CPT/HCPCS: 99214

== ENCOUNTER 2024-12-28 07:53 | Outpatient (REF) | payer OTHER, SELFPAY ==
--- OUTSIDE RECORDS SUMMARY | 2024-12-28 07:58 | XMS_ITS | Clinical Summary ---
Author Organization [facility] Address [address] [place] [phone] Phone Care Team Providers Care Investigative Writer Name Role Phone Aguila Shook NP Primary [...] topic Medical Devices Not on file Insurance [employer] BENEFITS ADMINISTRATORS [employer]ENEFITS ADMINISTRATORS [employer]ENEFITS ADMINISTRATORS [employer] BENEFITS ADMINISTRATORS [employer] BENEFITS ADMINISTRATORS [facility] BENEFITS ADMINISTRATORS Care Teams Investigative Writer Relationship Specialty Start Date End Date Aguila Shook NP [address] [place] [address] PCP - General Nurse Practitioner 03/03/23 Additional Source Comments The information contained in this document represents components of the legal health record. It is not the complete legal health record.[facility]
[2024-12-28] MEDS: Lidocaine HCl 1 % MPF 5 ML VIAL 10 ML SUBCUT (08:45)
--- NOTE | 2024-12-28 12:18 | P.OP_ITS ---
Operative Note Operative Note Date of Service: 12/28/24 Narrative: Preoperative diagnosis: Elevated PSA Postoperative diagnosis: Elevated PSA Procedure: 1. transrectal ultrasound measurement of prostate 2. transrectal ultrasound-guided pudendal nerve block 3. transrectal ultrasound-guided prostate biopsy 12 core Surgeon: Dr. Kana Henderson Anesthetic: 10cc 1% lidocaine Indications for procedure: Elevated PSA PSA 5.3, free 11% Counselling: Technical aspects, risks and benefits of proposed procedure were d iscussed in full. All questions have been answered, written consent has been obtained and patient agrees to proceed. Procedure: The patient was brought into the procedure area and placed in a left lateral decubitus position. Patient identity confirmed. Perioperative antibiotics confirmed. Safety pause time out performed. JESSENIA was performed to dilate rectal sphincter Iodine 10cc with 60 cc gel was placed per rectum to reduce infection risk using a catheter tip syringe. 8 Hz Isaias rectal end-fire ultrasound probe was placed transrectally without difficulty. The prostate was visualized. Seminal vesicles were normal. Prostate margins were clearly demarcated. Bladder was seen superiorly. No cystic structures were noted No calcifications were noted at the surgical margin The prostate was otherwise homogeneous in nature. No definitive disruption to prostate capsule noted. No definitive nodularity. The prostate was measured in 3 dimensions Prostatic Width: 4.7 cm Prostatic Height: 2.8 cm Urethral Length: 4.2 cm Total volume equals : 30 ml An ultrasound-guided pudendal nerve block was performed using a 22 gauge spinal needle in the sagittal plane. 4 cc of 1% lidocaine placed at the junction of each seminal vesicle and 2 cc placed at the apex of the prostate. A 12 core biopsy was performed with 6 cores each side using an 18 gauge prostate biopsy gun. Two cores each were taken at the prostate apex, mid and base on each side. Cores were spaced between lateral and medial aspects. Each core was examined as placed on specimen foam as part of senior quality methods specialist to ensure a minimum 1 cm of length and minimal discontinuity. He tolerated the procedure well with minimal rectal bleeding. Blood pressure remained stable following procedure. He was able to ambulate to bathroom after 5 minutes. Printed instructions regarding antibiotic use and common adverse events from the procedure such as low-grade temperature, potential infection and bleeding were given. He understands to call the office or go to an emergency room should any of these events arise. Pathology: 12 core prostate biopsy. CPT code 45162: Transrectal ultrasound; this is a diagnostic test for evaluation of the prostate and surrounding structures, looking for abnormalities or suspicious areas worrisome for cancer CPT code 74669: Biopsy, prostate; needle or punch, single or multiple, any approach CPT code 17229: Ultrasonic guidance for needle placement (eg, biopsy, aspiration, injection, localization device), imaging supervision and interpretation
== END 2024-12-28 07:54 | disposition home or self-care (01) ==
LOC: HO.US 07:53
PROVIDERS: PCP Nurse Practitioner Family; Visit Provider Urology
DX: R97.20 Elevated prostate specific antigen [PSA] (principal)
CPT/HCPCS: 55700; 76942; 88305; 88344; J2003

== ENCOUNTER → 2024-12-28 07:53 | Outpatient (BNV) | payer OTHER, SELFPAY | PROVIDERS: PCP Nurse Practitioner Family; Visit Provider Urology | DX: R97.20 Elevated prostate specific antigen [PSA] (principal) | CPT/HCPCS: 55700; 76872; 76942 ==

== ENCOUNTER 2025-01-19 10:13 | Outpatient (AMB) | payer OTHER, SELFPAY ==
--- NOTE | 2025-01-19 10:13 | A.OFFVIS_ITS ---
Intake Visit Reasons: Prostate Biopsy results Intake Note: Patient is present for Prostate Biopsy Results Allergies shellfish derived Allergy (Verified 08/09/24 15:29) itchy neck, itchy feet HPI Comments Details: Nirmal is a pleasant male. He is a patient of Dr. Jon. Here for the following urologic conditions - borderline low testosterone - elevated PSA - prostatitis Telemedicine Evaluation 15 min Consultation [employer]er[employer] Video Obtain Prolaris Discussed results Will review with MRI in 2 weeks Prostate cancer - low-grade, organ confined Histologic type: Adenocarcinoma, acinar type Histologic grade: [place] score: 3+3=6 % of pattern 4: 0% % of pattern 5: 0% Number cores positive: 7 - Total number of cores: 12 % of tissue involved: 10-15% of all tissue examined Periprostatic fat inv.: Not identified Seminal vesicle inv.: Not identified Perineural inv.: Not identified LVI: Not identified Prostate MRI - 30 g prostate PI-RADS 4 - 3 lesions Right anterior peripheral zone base 1.2 cm PI-RADS 4 Right posterior peripheral zone mid 10 mm PI-RADS 4 Left anterior peripheral zone mid 7 mm 30 g prostate Elevated PSA PSA- 06/30 4.6, 09/29 5.3 11% Labs - Testosterone 12/29 275 FT 61, 11/30 314 FT 76 PFSH Medical History Prostate cancer Fatigue Tick bite Physical exam Acute medial meniscal injury of right knee Abnormal x-ray of lumbar spine Lower back pain Family history of thyroid cancer Encounter for routine adult physical exam with abnormal findings Pneumonia Strain of right hand Right hand pain Pre-op examination Right upper quadrant abdominal pain Lyme disease Nerve pain Right otitis externa Elevated liver enzymes Physical exam Sleep disorder, unspecified Sleep apnea Lyme disease Hyperlipidemia Hiatal hernia GERD (gastroesophageal reflux disease) Seaman esophagus Surgical History History of prostate biopsy H/O colonoscopy Hx of cholecystectomy S/P laparoscopic cholecystectomy H/O shoulder surgery Hx of endoscopy Family History Father Hx of congenital heart disease Mother History of cancer Social History Household Members: Family Housing: House Do you presently have visiting nurse or other home services: No Alcohol intake: current Alcohol intake frequency: holidays/special occasions only Comment: pt asleep Patient Tobacco Use Status: Former Tobacco user Years Smoked: 15 yrs e-Cigarette/Vaping Use: Former Use service: No Current occupational status: employed 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, 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 Cognitive needs: No Hearing needs: No Vision needs: Yes Review of Systems Const All systems reviewed & are unremarkable except as noted in HPI and below Reports no additional complaints Resp Reports no additional complaints GI Reports no additional complaints Reports as per HPI Musc Reports no additional complaints Physical Exam Telemedicine evaluation Appropriate responses Regular breathing rate and rhythm HEENT Head: Yes normal to inspection Ears: hearing grossly normal bilaterally Eyes General: appearance normal, both eyes and all related structures Neck Neck: Yes normal visual inspection Chest Chest palpation & inspection: normal inspection of the chest Resp Effort & Inspection: normal respiratory effort and able to speak in complete sentences Telehealth Telehealth Telehealth Platform: [employer] Location of provider rendering services: practice address Location of patient: address on file Patient Identification confirmed using: Name, : Yes Telehealth method: voice only Patient verbally consented to treatment: Yes Patient verbally consented to billing insurance company: Yes Patient informed of any privacy concerns related to visit: Yes Minutes spent on Phone/Video with Pt.: 15 Assessment & Plan Assessment & Plan (1) Hormone sensitive prostate cancer: Code(s): C61 - Malignant neoplasm of prostate; Z19.1 - Hormone sensitive malignancy status Category: Medical Plan Prolaris Two week follow-up office Patient Instructions: This note is constructed using voice recognition software. While every effort has been made to ensure accuracy whittling room operator errors may have been included. Imaging studies, laboratory and physical exam results were discussed and reviewed in detail. No major barriers to patient understanding were identified. An opportunity to ask questions regarding the treatment plan was provided. All questions were answered. The patient expressed understanding and agreement with the above treatment plan. The patient is aware they should contact our office by phone for worsening of their current condition or the appearance of new urologic symptoms. Compliance is encouraged with any medications and followup testing that is ordered. It is a privilege to participate in the urologic care of your patient. If you have any questions or concerns regarding treatment for the above conditions, or other urologic issues, please do not hesitate to contact me. The office telephone contact is [phone]. Sincerely, Dr Kana Henderson MD, [facility] - Urology Compassionate Specialist Care for the Genitourinary System Coding Level of Care Code Tele Est Pt Level 4 (82317) Complex EM visit Add On G2211 Diagnoses Hormone sensitive prostate cancer C61; Z19.1
== END 2025-01-19 10:49 | disposition home or self-care (01) ==
LOC: HO.HUSH 10:13
PROVIDERS: PCP Nurse Practitioner Family; Visit Provider Urology
DX: C61 Malignant neoplasm of prostate (principal); Z19.1 Hormone sensitive malignancy status
CPT/HCPCS: 99213

== ENCOUNTER 2025-02-13 09:27 | Outpatient (AMB) | payer OTHER, SELFPAY ==
--- NOTE | 2025-02-13 09:38 | MHC.OFFVIS ---
Intake Visit Reasons: 2W-F/U/ SET ( NO UA ) Intake Note: Patient is present for 2 wk FOLLOW UP Urology Medication: none Antibiotic Allergy:NONE Blood Thinner:NONE LABS DONE : 11/27/24: Fr Testosterone 76.0 , Total testosterone : 314 Imaging : Prostate biopsy 12/28/24 [employer] Required: No Accompanied by: Spouse Allergies shellfish derived Allergy (Verified 02/13/25 09:39) itchy neck, itchy feet HPI Comments Details: Nirmal is a pleasant male. He is a patient of Dr. Jon. Here for the following urologic conditions - borderline low testosterone - elevated PSA - prostatitis Accompanied by his Discussion with printed copies of pathology, imaging, staging Given age, multifocal nature of disease recommendation for robotic prostatectomy Prostate Cancer Therapy Discussion today focused on treatment options for prostate cancer. The patient has already reviewed educational materials that had been provided to him in printed form. The NCCN criteria for imaging, molecular testing and germ line testing were discussed. The discussion was then focused on therapeutic options which include 1) Deferred therapy/active surveillance. Recommended in the setting of low volume, very low risk and low risk disease. Criteria include 3 cores all less, same side, no core greater than 50% disease. Evaluation may be augmented with imaging such as pelvic MRI and genetic evaluation of biopsy material. Somatic tissue genetic testing such as Prolaris, which focuses on tumor-specific pathogenic variants that may identify an indication for further germline testing and can guide therapeutic decisions in the setting of low risk and low volume disease. - The patient is not a candidate for active surveillance. NCCN Prostate Cancer Guideline 4.2022 PROS-F Page 2 PRINCIPLES OF ACTIVE SURVEILLANCE AND OBSERVATION Confirmatory Testing to Establish Appropriateness of Active Surveillance: - Goals of confirmatory testing are to help facilitate early identification of those patients who may be at a higher risk of future grade reclassification or cancer progression. - Since an initial prostate biopsy may underestimate tumor grade or volume, confirmatory testing is strongly recommended within the first 6 to 12 months of diagnosis for patients who are considering active surveillance. - Options for confirmatory testing include prostate biopsy, mpMRI with calculation of PSA density (and repeat biopsy as indicated), and/or molecular tumor analysis, see Principles of Risk Stratification (PROS-D). - Early confirmatory testing may not be necessary in patients who have had an mpMRI prior to diagnostic biopsy. ?All patients should undergo a confirmatory prostate biopsy within 1?2 years of their diagnostic biopsy 2) Targeted Cryotherapy Ablation. The technique of cryotherapy was described. PSA free progression rates were discussed. Suitable candidates in general have low volume grade group 1 or grade group 2 disease. Typically pelvic MRI with targeted mapping biopsies are required for treatment planning. - The patient he has not a candidate for image guided targeted cryotherapy ablation. 3) Robotic Prostatectomy. Salient features of the patient's PSA, Cesar score and disease stage were applied to the [facility] nomogram. Relevant rates of extracapsular extension, seminal vesicle involvement katie involvement with discussed. Pathologic up staging and down staging on final specimen was discussed. Salient features of the procedure, hospitalization and recovery were discussed. - The patient is a candidate for robotic prostatectomy. 4) Radiation therapy was described. IMRT, hyperfractionated therapy, permanent seed implant with all without concomitant androgen deprivation therapy and rectal protection were discussed. There is a small separation regarding cancer control between radiation and prostatectomy at approximately 15 years. There is an evolving preference for hyper fractionated therapy. This gives the same radiation total dose in a reduced number of individual treatment sessions. This approach is associated with higher risks of rectal bleeding. To ameliorate these risks injection of a spacer gel posterior to the prostate has been advocated. This is only indicated in patients without evidence of extracapsular extension posteriorly, and should be considered with caution where disease is primary grade 4. Brachytherapy was described in detail. Typically this is a same day procedure. Therapy is typically well tolerated and gives good control for low-risk prostate cancer and cancer that does not involve neurovascular invasion. - The patient is a candidate for brachytherapy and external beam Different risks were described for each therapeutic option. Ranges from the published literature were discussed. Consequent morbidity and treatment to address complications were discussed. These include - robotic prostatectomy - Typically patients are in hospital for one day and miss 4 weeks of work. The importance of preoperative walking and Kegel exercises was stressed. Complications, including but not limited to; acute complications regarding blood loss, transfusion, DVT, ileus, wound infection and potential mortality. Long-term complications such as impotence, UTI, urethral stricture, bladder neck contracture, incontinence. Penile shrinkage and chronic pain were discussed and reviewed. - radiation - IMRT typically this takes 25-40 daily treatments administered on a Wednesday through Wednesday sequence. Treatment is normally well tolerated. associated side effects include urge, frequency, dysuria, hematuria, loose bowels and fatigue, particularly toward the end of therapy. These can be ameliorated to some degree with medication. Long-term risks regarding impotence and a small risk of chronic urinary urge and incontinence were discussed - brachytherapy General anesthesia is used. Radioactive seeds are placed. There may be a required planning visit. Risks regarding anesthesia with DVT, PE, infection, urinary retention, urgency, and frequency were discussed. Long-term risks include bladder neck contraction, impotence, urge, potential for secondary cancer of the bladder base The patient has Grade Group 1 pT 1 prostate cancer disease Based on the patient's age, comorbidities and personal preferences reasonable treatment options include robotic prostatectomy The patient is not a candidate for germline testing in accordance with the NCCN guideline Prostate cancer - low-grade bracket grade group 1, organ confined, multifocal disease Histologic type: Adenocarcinoma, acinar type Histologic grade: [place] score: 3+3=6 Number cores positive: 7 - Total number of cores: 12 % of tissue involved: 10-15% of all tissue examined - Periprostatic fat inv.: Not identified, Seminal vesicle inv.: Not identified, Perineural inv.: Not identified, LVI: Not identified Prostate MRI - 30 g prostate PI-RADS 4 - 3 lesions Right anterior peripheral zone base 1.2 cm PI-RADS 4 Right posterior peripheral zone mid 10 mm PI-RADS 4 Left anterior peripheral zone mid 7 mm 30 g prostate Elevated PSA PSA- 06/30 4.6, 09/29 5.3 11% Labs - Testosterone 12/29 275 FT 61, 11/30 314 FT 76 PFSH Medical History Prostate cancer Fatigue Tick bite Physical exam Acute medial meniscal injury of right knee Abnormal x-ray of lumbar spine Lower back pain Family history of thyroid cancer Encounter for routine adult physical exam with abnormal findings Pneumonia Strain of right hand Right hand pain Pre-op examination Right upper quadrant abdominal pain Lyme disease Nerve pain Right otitis externa Elevated liver enzymes Physical exam Sleep disorder, unspecified Sleep apnea Lyme disease Hyperlipidemia Hiatal hernia GERD (gastroesophageal reflux disease) Seaman esophagus Surgical History History of prostate biopsy H/O colonoscopy Hx of cholecystectomy S/P laparoscopic cholecystectomy H/O shoulder surgery Hx of endoscopy Family History Father Hx of congenital heart disease Mother History of cancer Social History Household Members: Family Housing: House Do you presently have visiting nurse or other home services: No Alcohol intake: current Alcohol intake frequency: holidays/special occasions only Comment: pt asleep Patient Tobacco Use Status: Former Tobacco user Years Smoked: 15 yrs e-Cigarette/Vaping Use: Former Use service: No Current occupational status: employed 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, 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 Cognitive needs: No Hearing needs: No Vision needs: Yes Review of Systems Const Denies chills and Denies fever(s) Card Reports no additional complaints and Denies syncope Resp Denies cough GI Denies abdominal pain and Denies heartburn Reports as per HPI and Denies change in libido Neuro Denies syncope Psych Denies change in libido Endo Denies change in libido Physical Exam Const General: cooperative, healthy appearing, comfortable and no acute distress Orientation/consciousness: patient oriented x3 HEENT Face and sinus: Yes normal facial exam Mouth: moist mucous membranes Neck Neck: Yes normal visual inspection, Yes full ROM and Yes trachea midline Chest Chest palpation & inspection: normal inspection of the chest Resp Effort & Inspection: normal respiratory effort, able to speak in complete sentences and no respiratory distress GI Inspection: Yes normal to inspection Back/Spine/Pelvis Cervical Spine: normal cervical lordosis Thoracic/Lumbar Spine: thoracic and lumbar spine normal to inspection Skin General skin exam: no rashes or lesions noted Neuro General: patient oriented x3, gait normal, tone normal and moves all extremities Extrem General: Yes normal to inspection and Yes capillary refill normal Assessment & Plan Assessment & Plan (1) Hormone sensitive prostate cancer: Comment: Grade group 1, organ confined, multifocal Code(s): C61 - Malignant neoplasm of prostate; Z19.1 - Hormone sensitive malignancy status Category: Medical Plan Referral [facility] Orders: Referrals Urology Referral C61 - Malignant neoplasm of prostate, Z19.1 - Hormone sensitive malignancy status Patient Instructions: This note is constructed using voice recognition software. While every effort has been made to ensure accuracy tour guide errors may have been included. Imaging studies, laboratory and physical exam results were discussed and reviewed in detail. No major barriers to patient understanding were identified. An opportunity to ask questions regarding the treatment plan was provided. All questions were answered. The patient expressed understanding and agreement with the above treatment plan. The patient is aware they should contact our office by phone for worsening of their current condition or the appearance of new urologic symptoms. Compliance is encouraged with any medications and followup testing that is ordered. It is a privilege to participate in the urologic care of your patient. If you have any questions or concerns regarding treatment for the above conditions, or other urologic issues, please do not hesitate to contact me. The office telephone contact is [phone]. Sincerely, Dr Kana Henderson MD, [facility] - Urology Compassionate Specialist Care for the Genitourinary System Coding Level of Care Code Est Pt Level 4 (06969) Complex visit Add On G2211 Diagnoses Hormone sensitive prostate cancer C61; Z19.1
== END 2025-02-13 10:44 | disposition home or self-care (01) ==
LOC: HO.HUSH 09:28
PROVIDERS: PCP Nurse Practitioner Family; Visit Provider Urology
DX: C61 Malignant neoplasm of prostate (principal); Z19.1 Hormone sensitive malignancy status
CPT/HCPCS: 99214